=== PATIENT | male | born 1940 | race Caucasian/White ===

== ENCOUNTER → 2019-12-10 11:32 | Outpatient (CLI) | payer MEDICARE, SELFPAY ==
--- NOTE | ~2019-12-10 | XR_ITS ---
XR lumbar spine 2-3V DATE: 12/10/2019 11:52 INDICATION: Low back pain TECHNIQUE: AP, lateral, coned lateral lumbosacral views COMPARISON: 10/24/2011 MRI lumbar spine FINDINGS: Lumbar laminectomy. Status post posterior and interbody spinal fusion at L2-3. There is ivette roximately 5 mm retrolisthesis at this level. Degenerative spurring of the lower thoracic spine. Moderate degenerative disc disease at L1-2 and L3-4 with approximately 4 mm retrolisthesis at L3-4. Osteopenia. No fracture or bone destruction is evident. The included lower thoracic and lumbar pedicles appear in tact. The sacroiliac joints are intact. There is extensive calcification of the abdominal aorta and iliac arteries. Surgical clips overlie the pelvis bilaterally. IMPRESSION: Posterior and interbody spinal fusion at L2-3 Moderate degenerative disc disease at L1-2 and L3-4 Retrolisthesis at L2-3 and L3-4 Reviewed, dictated and finalized at location A.
== END ==
PROVIDERS: PCP Family Medicine
DX: M51.36 Other intervertebral disc degeneration, lumbar region (principal); Z98.1 Arthrodesis status
CPT/HCPCS: 72100

== ENCOUNTER 2020-02-08 09:17 | Outpatient (CLI) | payer MEDICARE, SELFPAY ==
--- NOTE | ~2020-02-08 | XR_ITS ---
EXAMINATION: XR lumbar spine 2-3V EXAM DATE: 02/08/2020 09:37 INDICATION: Decompressive laminectomies and fusion. TECHNIQUE: Lumber spine frontal, lateral, lateral L5-S1 projections for interpretation. Comparison is made to prior examination from 12/10/2019. FINDINGS: Again there is posterior and interbody fusion at L2-3 and grade 1 retrolisthesis position. There is about 5 mm retrolisthesis L3 on L4. There are moderate-sized bridging lumbar endplate osteo phytes at these 2 levels. Mild to moderate lumbar disc disease at L1-2 and L3-4, mild at the lower levon mbar levels. There is moderate lumbar facet arthropathy. There is mild to moderate abdominal aortic a rteriosclerotic disease. Mild diffuse loss of vertebral body heights. Sacrum, sacroiliac joints, sac ral arcuate lines are intact. Pelvic surgical clips, probably pelvic lymph node dissection, prostatec richa; correlate with surgical history. There is no significant interval change. IMPRESSION: 1. Mild to moderate lumbar disc disease. 2. Moderate facet arthropathy. 3. Intact L2-3 fusion. Reviewed, dictated and finalized at location A.
== END 2020-02-08 09:18 | disposition home or self-care (01) ==
PROVIDERS: PCP Family Medicine; Visit Provider Neurological Surgery
DX: M54.5 Low back pain (principal); Z98.1 Arthrodesis status; M51.86 Other intervertebral disc disorders, lumbar region; M12.88 Other specific arthropathies, not elsewhere classified, other specified site
CPT/HCPCS: 72100

== ENCOUNTER 2021-02-05 14:30 | Outpatient (RCR) | payer MEDICARE, SELFPAY ==
--- NOTE | 2021-01-11 11:00 | PTOPEVAL ---
PHYSICAL THERAPY EVALUATION AND PLAN OF CARE 01-11-21 Thank you for referring Wilmer Bowling to [facility], for the diagnosis of low back pain, spinal stenosis. Art is scheduled to be seen for therapy? 2 x/week for 4 weeks. Please review, sign, date and return this plan of care ELAYNE. I agree with and certify that the following plan of care is medically necessary. Referring Physician Date Attending Provider: Beck Benites MD PT Outpatient Evaluation Document 01/11/21 08:05 ELIZABETH (Rec: 01/11/21 09:05 ELIZABETH [id number]) Outpatient Past Medical History Past Medical History Source of Past Medical History Patient Neurological History Hx Other Neurological Disorders Yes: B LE/ feet diabetic neuropathy- wear shoe insertion Cardiovascular History Hx Hypertension Yes: meds Respiratory History Hx Sleep Apnea Yes: CPAP Genitourinary History Hx Other Genitourinary Disorders Yes: prostate surgery x2, for cancer with radiation Musculoskeletal History Hx Back Pain Yes Hx Orthopedic Surgery Yes: 2015 & 2019: lumbar fusion L 2-3; R rot cuff surgery Endocrine History Hx Diabetes Yes: meds HEENT History Hx HEENT Disorders B hearing aides Psychosocial History Hx Anxiety Yes Other History Hx Cancer Yes: prostate surgery x2 Hx Radiation Therapy Yes: for prostate Hx Other Medical Conditions Yes: restless leg syndrome Evaluation Information Problem Diagnosis spinal stenosis, lumbar pain Onset Aug 2020 Subjective Information back surgery in November 2015 and Query Text:As Reported By Patient/ September 2019- L 2-3 Family decompressive laminectomy and fusion with revision of hardware L 4-5 ; surgeon Dr Bowie did an x ray in December and stated all is healed well and wanted him to have PT treatment Diagnostic Tests X-Rays For This Problem Yes: per pt- said arthritis and previous surgery is OK Previous Treatments Previous Treatments For This Problem had PT prior to back surgery, stim helped- liked it Prior Level of Function Activity Level (Last 3 Months) Occupation retired Hand Dominance Right Activity of Daily Living Ability Independent Indoor/Home Mobility Independent Community Mobility Independent Stairs Ability Independent Functional Cognition (Planning, Shopping Independent ,
--- NOTE | 2021-02-05 15:14 | PTOPEVAL ---
PHYSICAL THERAPY DISCHARGE 02-05-21 Refer to the clinical summary below, for his status with today's reeval to the initial evaluation. The goals were partially achieved. Thank you for referring Wilmer Bowling to [facility].? Please review, sign, date and return this Discharge ELAYNE. I agree with and certify that the following plan of care is medically necessary. Referring Physician Date Attending Provider: Beck Benites MD Document 02/05/21 14:30 ELIZABETH (Rec: 02/05/21 15:14 ELIZABETH [id number]) Assessment Status Discharge Subjective Information Art reports: therapy has Query Text:As Reported By Patient/ helped tremendously--doing the Family exercises and have things to help my back; Pain Assessment Timing of Pain Assessment Timing of Pain Assessment Assessment Pain Scale Pain Scale Used Numeric (1 - 10) Self Report Pain Assessment Bilateral Back Reported Pain Level 2 Pain Description Aching,Burning Radicular Pain Location L LE to lateral - mid calf- with increase activity- stinging,ease with rest Pain Frequency Chronic,Continuous Other Pain Description R and L lumbar areas, into R hip and buttock Lowest Pain Intensity 2 Greatest Pain Intensity 5 Pain Aggravating Factors Exercise/Activity,Lifting, Stair Climbing,Walking Other Pain Aggravating Factors report walking tolerance of 1/ 2 block; Pain Behaviors Grimacing,Guarding Additional Pain Comments doing OK with sitting and sleeping; Pain Score Pain Score 2: Self Report Additional Pain Score Comments Oswestry self assessment functional score of 36% limitation in activity Interventions Used Interventions Used By Clinicians Education,Exercise Cervical and Lumbar ROM Lumbar ROM Lumbar Comments standing trunk extension increase burn pain in anterior thighs and lumbar areas; supine hamstring length with SLR R 60'/ L 65'- no increase in back pain; prone on elbows: no pain but tight in low back Lower Extremity Muscle Strength Testing General Lower Extremity Strength Gross Lower Extremity Strength functional strength testing: - supine: SLR R and L x 20 reps - side lying hip abduction:R
== END 2021-02-06 08:27 | disposition home or self-care (01) ==
LOC: ANHPT 14:30
PROVIDERS: PCP Family Medicine; Visit Provider Family Medicine
DX: M48.062 Spinal stenosis, lumbar region with neurogenic claudication (principal)
CPT/HCPCS: 97014; 97110; 97140; 97161; G0283

== ENCOUNTER → 2022-12-15 09:50 | Outpatient (CLI) | payer MEDICARE, SELFPAY ==
--- NOTE | ~2022-12-15 | XR_ITS ---
XR knee LT 3V 12/15/2022 10:11 Indication: Left knee pain Procedure: 4 views left knee Comparison: No prior studies for comparison. Findings: Mild tricompartment osteoarthritis of the left knee. No fracture, subluxation or dislocatio n. No significant joint effusion. Impression: 1: Mild tricompartment osteoarthritis of the left knee. Reviewed, dictated and finalized at location B. Impression: 1: Mild tricompartment osteoarthritis of the left knee.
== END ==
PROVIDERS: PCP Family Medicine; Visit Provider Family Medicine
DX: M17.12 Unilateral primary osteoarthritis, left knee (principal)
CPT/HCPCS: 73562

== ENCOUNTER → 2023-02-23 14:45 | Outpatient (CLI) | payer MEDICARE, SELFPAY ==
--- NOTE | ~2023-02-23 | MR_ITS ---
MRI of the lumbar spine Clinical History: Spinal stenosis Technique: Axial T2-weighted images, and sagittal T1-weighted, T2-weighted, and and T2 fat-sat images were acquired. Following intravenous administration of 18 cc MultiHance gadolinium, T1-weighted fat- sat imaging was performed in the axial and sagittal planes. COMPARISON: 10/24/2011 Findings: No acute fracture identified. There is posterior fusion from L2 through L3, with bilateral rods and transpedicular screws in place, as well as laminectomies at L2 and L3. There is interbody fu rhiannon device at the L2-L3 disc space. There is underlying grade 1 retrolisthesis of L2 over L3, and of L3 over L4. No suspicious bone marrow signal abnormality identified. At L1-L2, there is no disc bulge or herniation. There is advanced facet arthropathy. There is minimal thecal sac compression. Neural foramina are preserved. At L2-L3, there is no disc bulge or herniation. There is facet arthropathy. No spinal canal stenosis. No definite neural foraminal narrowing. L3-L4, there is disc bulge and facet arthropathy. No yvan central canal stenosis. There is moderate to severe right neural foraminal narrowing, and moderate left neural foraminal narrowing. At L4-L5, there is diffuse disc bulge with advanced facet arthropathy. L4 laminectomy present. No fra nk central canal stenosis. There is severe bilateral neural foraminal narrowing. At L5-S1, there is severe facet arthropathy without disc bulge or herniation. No central canal stenos is. Possible minimal bilateral neural foraminal narrowing. Paravertebral soft tissues are unremarkable, aside from expected postoperative changes. No abnormal p ostcontrast enhancement identified. Impression: Posterior fusion from L2 through L3, with underlying grade 1 retrolisthesis of L2 over L3, and of L3 over L4. Please see details above. Severe bilateral neural foraminal narrowing at L4-L5. Bilateral neural foraminal narrowing at L3-L4, right worse than left. Minimal thecal sac compression at L1-L2, on a degenerative basis. Reviewed, dictated and finalized at [facility]. Impression: Posterior fusion from L2 through L3, with underlying grade 1 retrolisthesis of L2 over L3, and of L3 over L4. Please see details above. Severe bilateral neural foraminal narrowing at L4-L5. Bilateral neural foraminal narrowing at L3-L4, right worse than left. Minimal thecal sac compression at L1-L2, on a degenerative basis.
== END ==
PROVIDERS: PCP Neurological Surgery; Visit Provider Neurological Surgery
DX: M48.062 Spinal stenosis, lumbar region with neurogenic claudication (principal); Z98.1 Arthrodesis status
CPT/HCPCS: 72158; A9577

== ENCOUNTER 2024-08-21 08:11 | Outpatient (CLI) | payer MEDICARE, SELFPAY ==
--- NOTE | ~2024-08-21 | MR_ITS ---
MRI of the brain Clinical History: Amnesia, Parkinson's disease Technique: Axial and sagittal T1-weighted images were acquired. These were followed by axial T2-weigh rosita, diffusion weighted, gradient, and FLAIR images. Following intravenous administration of 15 cc Mu ltiHance gadolinium, T1-weighted fat-sat imaging was performed in the axial and coronal planes. Findings: There is no acute infarct, intracranial hemorrhage, or mass lesion. Moderate chronic white matter changes are present in the periventricular white matter bilaterally and jeannette. Ventricles and subarachnoid spaces are dilated. Orbits are unremarkable. Paranasal sinuses and mastoi d air cells are clear. Major intracranial flow voids appear intact. Sagittal midline structures are intact. No abnormal postcontrast enhancement identified. IMPRESSION: No acute abnormality. Moderate chronic microvascular ischemic change and mild generalized atrophy. Reviewed, dictated and finalized at [facility]. [employer] SYSTEMS INTEGRATOR IMPRESSION: No acute abnormality. Moderate chronic microvascular ischemic change and mild g eneralized atrophy.
--- OUTSIDE RECORDS SUMMARY | 2024-08-25 17:00 | XMS_ITS | Encounter Summary ---
Author Organization Formerly [facility] Address [address] [place] [address] Care Team Providers Care Scalp Specialist Name Role Phone Beck Benites MD Primary Care Provider [phone] Reason for Referral * MRI/CAT/PET Scan (Routine) - Closed Specialty Diagnoses / Procedures Referred By Nina love Referred To Contact Radiology Diagnoses Malignant neoplasm of prostate (HCC) Procedures PET/CT Prostate Cancer PSMA Skull to Thigh Wilfrido Todd MD [address] [place] [address] Phone: tel: fax: [address] [phone] Referral ID Status Reason Start Date Expiration Date Visits Re quested Visits Authorized [id number] Closed 11/01/2021 12/01/2022 2 2 CONDENSER Reason for Visit * MRI/CAT/PET Scan (Routine) - Closed Specialty Diagnoses / Procedures Referred By Contac t Referred To Contact Radiology Diagnoses Malignant neoplasm of prostate (HCC) Procedures PET/CT Prostate Cancer PSMA Skull to Thigh Wilfrido Todd MD [address] [place] [id number] Phone: tel: fax: [address] [phone] Referral ID Status Reason Start Date Expiration Date Visits Re quested Visits Authorized [id number] Closed 11/01/2021 12/01/2022 2 2 Encounter Details Date Type Department Care Team (Late st Contact Info) Description 11/13/2021 2:45 PM ACID CONDENSER - 11/13/2021 11:59 PM ACID CONDENSER Hospital Encounter [facility] [address] [place] [id number] Wilfrido Todd MD [address] [place] [id number] Malignant neoplasm of prostate (CMS/HCC) (HCC) Discharge Disposition: Discharge to home or self care Social History Tobacco Use Types Packs/Day Years Used Date Smoking Tobacco: Former Cigarettes 0.1 8 1 - 09/05/1995 Smokeless Tobacco: Never Alcohol Use Standard Drinks/Week Comments Yes 2 (1 standard drink = 0.6 oz pur e alcohol) occassionally Sex and Gender Information Value Date Recorded Sex Assigned at Not on file Legal Sex Male 4:01 AM ACID CONDENSER Gender Identity Not on file Sexual Orientation Not on file documented as of this encounter Medications at Time of Discharge ascorbic acid, vitamin C, (VITAMIN C) 500 mg CR tabletIndications :Vitamin C Deficiency Take 500 mg by mouth daily cholecalciferol (VITAMIN D-3) 2000 unit capsuleIndication s:Vitamin D Deficiency Take 2,000 Units by mouth daily coenzyme Q10 100 mg capsuleIndication s:vitamin health Take 100 mg by mouth 2 (two) times a day cyanocobalamin (Vitamin B-12) 1,000 mcg tabletIndications :Prevention of Vitamin B12 Deficiency Take 1,000 mcg by mouth daily DULoxetine DR (CYMBALTA) 60 mg capsuleIndication s:Anxiety with Depression Take 60 mg by mouth daily empagliflozin (JARDIANCE) 25 mg tabletIndications :type 2 diabetes mellitus Take 25 mg by mouth daily famotidine (PEPCID) oral suspension 40 mg/5 mLIndications:gas troesophageal reflux disease Take 20 mg by mouth as needed for heartburn glipiZIDE (GLUCOTROL) 10 mg tabletIndications :type 2 diabetes mellitus Take 10 mg by mouth 2 (two) times a day before breakfast and lunch lisinopril (PRINIVIL,ZESTRIL ) 40 mg tabletIndications :hypertension Take 40 mg by mouth daily metFORMIN (GLUCOPHAGE) 500 mg tabletIndications :type 2 diabetes mellitus Take 2,000 mg by mouth daily with dinner omeprazole (PriLOSEC) 20 mg capsuleIndication s:Stress Ulcer Prophylaxis Take 20 mg by mouth daily simvastatin (ZOCOR) 40 mg tabletIndications :hyperlipidemia Take 40 mg by mouth nightly vitamin E (vitamin E) 400 unit capsule Take 400 Units by mouth daily aspirin 81 mg enteric coated tablet Take 1 tablet (81 mg total) by mouth daily with dinner 09/26/2019 docusate sodium (Colace) 100 mg capsuleIndication s:constipation Take 100 mg by mouth 2 (two) times a day as needed for constipation. Indications: constipation dulaglutide (TRULICITY) 1.5 mg/0.5 mL pen injector Inject 1.5 mg under the skin once a week Takes on Thursday vitamin E (vitamin E) 1,000 unit capsuleIndication s:Vitamin E Deficiency Take 1,000 Units by mouth daily. Indications: deficiency of vitamin E documented as of this encounter Discharge Disposition Disposition Code Departure Means Destination Discharge to home or self care documented in this encounter Plan of Treatment Not on file documented as of this encounter Procedures Procedure Name Priority Date/Time Associated Diagnosis Comments PET/CT PROSTATE CANCER PSMA SKULL TO THIGH Schedule Routine, Read Routine (OP Routine) 11/13/2021 5:58 PM ACID CONDENSER Malignant neoplasm of prostate (CMS/HCC) (HCC) documented in this encounter Results * PET/CT Prostate Cancer PSMA Skull to Thigh (11/13/2021 5:58 PM ACID CONDENSER) Anatomical Region Laterality Modality N/A Positron Emissio n Tomography (PET) 11/14/2021 9:43 AM ACID CONDENSER Impressions 11/14/2021 1:21 PM ACID CONDENSER 1. Small right common iliac and retroperitoneal lymph nodes with fspp-xe-ysminxni PSMA uptake are suspicious for prostate cancer anthony metastases. 2. No PSMA PET evidence of local prostatectomy bed recurrence or visceral/osseous metastasis. 3. ??Mild focal uptake at the right lateral 4th rib without definite correlate CT lesion is probably benign. Dictated by: José Antonio Schafer M.D. The radiology attending physician has personally reviewed this study, and had reviewed and/or edited this written report and agrees with it. Electronically signed by: La Weinberg M.D. Narrative 11/14/2021 1:21 PM ACID CONDENSER EXAMINATION: ??PSMA-PET/CT DATE OF STUDY: 11/13/2021 SCANNER: mCT RADIOPHARMACEUTICAL: ??10.6 mCi F-18 Piflufolastat (PYL) i.v. Injection site: Right antecubital HISTORY: ??Man (81 years old) with prostate cancer diagnosed on September 2004 with [place] score of 3+4. ??The patient was treated with radical prostatectomy in November 2004. ??The most recently obtained PSA is 0.5 ng/mL (unspecified date). ??The study is requested for restaging of documented biochemically recurrent prostate cancer. Subsequent treatment strategy. TECHNIQUE: ??After intravenous administration of F-18 PYL, noncontrast CT images were obtained for attenuation correction and for fusion with emission PET images to allow for anatomical localization of PET findings. ??Emission PET images were then obtained. ??The study was interpreted on the [email or web address] workstation. ?? Scanned area: mid thighs to skull vertex; the time from injection to start of imaging the time from injection to start of imaging for this scan position was 95 minutes. REFERENCE TISSUE MAXIMUM SUVs: ??Parotid gland 12.8; Liver 8.9; Blood pool 2.0 Focal PYL uptake is graded as follows: * ??Faint: above background to blood pool * ??Mild: above blood pool to liver * ??Moderate: above liver to salivary glands * ??Intense: similar to or above salivary glands COMPARISON: [facility] PET/CT dated 01/14/2019 FINDINGS: Prostate/Prostate bed: Prostatectomy. ??No abnormal tracer uptake seen. Regional lymph nodes: Surgical clips from bilateral pelvic node dissection. ??Small right common iliac and right aortic bifurcation lymph nodes with guup-hw-yqfefvzs uptake are seen. ??For reference: -Small right common iliac lymph node measuring 0.7 x 0.3 cm that has mild to moderate uptake (image 294/441). -Tiny right aortic bifurcation node measuring 0.2 cm with mild uptake (image 283/441). Extra-pelvic lymph nodes: Multiple small retroperitoneal nodes have mild to moderate uptake. ??For reference: -Precaval 0.4 cm node with zylc-ts-cthpjwdq uptake (image 272/441). -Aortocaval 0.4 cm node with moderate uptake (image 256/441). -The most superior suspicious node is a small retrocaval node with mild uptake on image (249/441) below the renal veins and at the level of L1-L2. Bone: No suspicious tracer uptake seen. Very mild focal uptake at the right lateral 4th rib without definite correlate CT lesion is probably benign. ??A sclerotic left posterior iliac lesion without focal uptake is unchanged. Visceral: No abnormal tracer uptake seen. A stable small left upper quadrant soft tissue nodule with mild uptake is favored to represent a splenule (image 190/441). Additional CT findings: Mild maxillary sinus mucosal thickening with minimal activity. ??Atherosclerotic calcifications including aortic and coronary involvement. ??Mild linear bibasilar atelectasis. Posterior lumbar spinal fusion. Procedure Note La Weinberg MD - 11/14/2021 EXAMINATION: PSMA-PET/CT DATE OF STUDY: 11/13/2021 SCANNER: mCT RADIOPHARMACEUTICAL: 10.6 mCi F-18 Piflufolastat (PYL) i.v. Injection site: Right antecubital HISTORY: Man (81 years old) with prostate cancer diagnosed on September 2004 with [place] score of 3+4. The patient was treated with radical prostatectomy in November 2004. The most recently obtained PSA is 0.5 ng/mL (unspecified date). The study is requested for restaging of documented biochemically recurrent prostate cancer. Subsequent treatment strategy. TECHNIQUE: After intravenous administration of F-18 PYL, noncontrast CT images were obtained for attenuation correction and for fusion with emission PET images to allow for anatomical localization of PET findings. Emission PET images were then obtained. The study was interpreted on the [email or web address] workstation. Scanned area: mid thighs to skull vertex; the time from injection to start of imaging the time from injection to start of imaging for this scan position was 95 minutes. REFERENCE TISSUE MAXIMUM SUVs: Parotid gland 12.8; Liver 8.9; Blood pool 2.0 Focal PYL uptake is graded as follows: * Faint: above background to blood pool * Mild: above blood pool to liver * Moderate: above liver to salivary glands * Intense: similar to or above salivary glands COMPARISON: [facility] PET/CT dated 01/14/2019 FINDINGS: Prostate/Prostate bed: Prostatectomy. No abnormal tracer uptake seen. Regional lymph nodes: Surgical clips from bilateral pelvic node dissection. Small right common iliac and right aortic bifurcation lymph nodes with vsud-qi-cwmbjzfa uptake are seen. For reference: -Small right common iliac lymph node measuring 0.7 x 0.3 cm that has mild to moderate uptake (image 294/441). -Tiny right aortic bifurcation node measuring 0.2 cm with mild uptake (image 283/441). Extra-pelvic lymph nodes: Multiple small retroperitoneal nodes have mild to moderate uptake. For reference: -Precaval 0.4 cm node with zucu-lh-rsrgcban uptake (image 272/441). -Aortocaval 0.4 cm node with moderate uptake (image 256/441). -The most superior suspicious node is a small retrocaval node with mild uptake on image (249/441) below the renal veins and at the level of L1-L2. Bone: No suspicious tracer uptake seen. Very mild focal uptake at the right lateral 4th rib without definite correlate CT lesion is probably benign. A sclerotic left posterior iliac lesion without focal uptake is unchanged. Visceral: No abnormal tracer uptake seen. A stable small left upper quadrant soft tissue nodule with mild uptake is favored to represent a splenule (image 190/441). Additional CT findings: Mild maxillary sinus mucosal thickening with minimal activity. Atherosclerotic calcifications including aortic and coronary involvement. Mild linear bibasilar atelectasis. Posterior lumbar spinal fusion. IMPRESSION: 1. Small right common iliac and retroperitoneal lymph nodes with kpxo-pp-ehxdbucg PSMA uptake are suspicious for prostate cancer anthony metastases. 2. No PSMA PET evidence of local prostatectomy bed recurrence or visceral/osseous metastasis. 3. Mild focal uptake at the right lateral 4th rib without definite correlate CT lesion is probably benign. Dictated by: José Antonio Schafer M.D. The radiology attending physician has personally reviewed this study, and had reviewed and/or edited this written report and agrees with it. Electronically signed by: La Weinberg M.D. Wilfrido Todd MD IMG PET PROCEDURES Erica l Result documented in this encounter Visit Diagnoses Diagnosis Malignant neoplasm of prostate (HCC) Malignant neoplasm of prostate documented in this encounter Administered Medications Inactive Administered Medications - up to 3 most recent administrations Medication Order MAR Action Action Date Dose Rate Site F-18 PyL-PYLARIFY (PIFLUFOLASTAT) (PyLARIFY) injection 9 millicurie 9 millicurie, intravenous, Once in imaging, radiopharmaceutical, Starting on Thu11/13/21 at 1602, For 1 dose Given 11/13/2021 3:59 PM ACID CONDENSER 10.59 millicuries documented in this encounter Orders Medications Ordered That Ervin ht Not Have Been Administered Count Last Ordered Date First Ordered Date F-18 PyL-PYLARIFY (PIFLUFOLA STAT) (PyLARIFY) injection 9 millicurie 1 11/13/2021 documented in this encounter Care Teams Scalp Specialist Relationship Specialty Start Date End Date Beck Benites MD [address] [address] PCP - General 11/06/16 documented as of this encounter
--- OUTSIDE RECORDS SUMMARY | 2024-08-25 17:00 | XMS_ITS | Encounter Summary ---
Author Organization [facility] Healthcare Address [address] [place] [address] Care Team Providers Care Polysomnographic Technician Name Role Phone Beck Benites MD Primary Care Provider [phone] Reason for Visit * Diagnostic Imaging (Routine) - Closed Specialty Diagnoses / Procedures Referred By Contac t Referred To Contact Diagnoses Pain Procedures XR Spine Lumbar 2 or 3 Views XR Spine Lumbar 4 or More Views Don Estrella MD [address] [address] Phone: tel: fax: [address] [address] Referral ID Status Reason Start Date Expiration Date Visits Re quested Visits Authorized [id number] Closed 02/19/2023 03/20/2024 1 1 Encounter Details Date Type Department Care Team (Latest Contact Info) Description 02/19/2023 8:49 AM CDT - 02/19/2023 11:59 PM CDT Hospital Encounter [facility] [address] [place] [address] Pain Discharge Disposition: Discharge to home or self [...] on file 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 ??Mild to moderate multilevel degenerative disc disease. Electronically signed by: Benja Martin M.D. Narrative 02/19/2023 9:15 AM CDT EXAMINATION: ??XR SPINE LUMBAR 2 OR 3 VIEWS DATE: 02/19/2023 9:00 AM. HISTORY: pain. COMPARISON: Lumbar spine radiograph from 12/26/2020. FINDINGS: The patient is status post L2-L3 instrument posterior spinal fusion. The instrumentation is intact and in unchanged position. ??Mild retrolisthesis at L2-L3, L3-L4, and L4-L5 is unchanged. ??There is no acute compression fracture. ??There is mild to moderate multilevel degenerative disc disease, similar to the prior study. ??The sacroiliac joints are intact. ??The aorta is atherosclerotic. ??There are surgical clips in the pelvis. Procedure Note Benja Martin MD - 02/19/2023 EXAMINATION: XR SPINE LUMBAR 2 OR 3 VIEWS DATE: 02/19/2023 9:00 AM. HISTORY: pain. COMPARISON: Lumbar spine radiograph from 12/26/2020. FINDINGS: The patient is status post L2-L3 instrument posterior spinal fusion. The instrumentation is intact and in unchanged position. Mild retrolisthesis at L2-L3, L3-L4, and L4-L5 is unchanged. There is no acute compression fracture. There is mild to moderate multilevel degenerative disc disease, similar to the prior study. The sacroiliac joints are intact. The aorta is atherosclerotic. There are surgical clips in the pelvis. IMPRESSION: Status post L2-L3 instrumented posterior spinal fusion, with unchanged vertebral alignment. Mild to moderate multilevel degenerative disc disease. Electronically signed by: Benja Martin M.D. us Don Estrella MD IMG XR PROCEDURES Final R esult documented in this encounter Visit Diagnoses Diagnosis Pain Generalized pain documented in this encounter Care Teams Polysomnographic Technician Relationship Specialty Start Date End Date Beck Benites MD [address] [address] PCP - General 11/06/16 documented as of this encounter
--- OUTSIDE RECORDS SUMMARY | 2024-08-25 17:00 | XMS_ITS | Data Portability ---
Author Organization [facility], Main Office Address [address] [place] [address] Care Team Providers Care Timber Sprinkler Name Role Phone TENZIN CHAND Primary Care Provider TENZIN CHAND Referring Provider Assessment Encounter Date Assessment Date Assessment LastModified by Organization Details LastModified Time 11/14/2022 11/14/2022 Patient returns. He had a cortisone injection left knee1 Week ago which along symptoms. He came in today for injection right knee. He has we were these week. 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 Physical exam: 82-year-old male very alert pleasant. He walks with a cane. He has trace effusion in the knee. Range of motion is from 0-135 degrees. He has moderate pain with patellofemoral grind. No medial or lateral joint line tenderness. No increased swelling in either lower extremity. ChloraPrep used on skin 20 mg Kenalog and 3 cc of% ropivacaine was injected into the right knee. Risk of infection discussed. 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 He does continue get excellent relief from injections. He will knee feels he needs additional injections. Not available 11/14/2022 09:22:33 04/24/2023 04/24/2023 HPI: 82-year-old male came in today for evaluation of his leg pain. Initially he thought that is right knee was the source of his pain. He states that he fell in January of this year when he tripped over the lip of the threshold at home. He landed hard on his side onto concrete. He has been having symptoms in his right leg since then. He has also been having some symptoms in his left leg as well. He contributed his pain to his knees. We saw him approximately a year ago for his knees and x-rays at that time showed minimal arthritic changes in the knees. After talking with the patient for a while he states that he would get symptoms in his knees in legs when he was up walking. He would walk a certain distance and then he would start to have a lot of pain in the thighs and in the knees to the point where he had to sit down. After he has had down for 5 minutes he was able to get up and walk again. Again he was contributing the symptoms to his knees. He has had back problems in the past. He had epidural injections done approximately 2-3 weeks ago. He does not feel there was any improvement in his symptoms. Physical exam: 82-year-old male alert pleasant. He has no effusion in the right knee. Range of motion is from 0-135 degrees. There is no pain with range of motion. Hip range of motion is full without discomfort. He has no tenderness to the medial or lateral joint line in the knee. No pain with patellofemoral grind. With normal stability in the knee. No swelling lower extremities. 2+ dorsalis pedis pulse. Impression: I think patient's symptoms are all coming from spinal stenosis and his back. His symptoms and the onset and the resolution of his symptoms certainly correlate to spinal stenosis. He has no physical exam findings in his knee and his previous x-rays show no arthritic changes either. I discussed this with him. I recommended that he go back to pain management and let them know that the previous injection did not help and see whether not there is more options to try to get his symptoms under control. He did state that they did do a new MRI scan so they do have imaging to try to correlate his symptoms to. 20 minutes was spent in discussing all of this with the patient. At this point we will see him back as needed. Not available 04/24/2023 16:02:39 Plan of Treatment Reminders Order Date Submit Date Provider Last Modified By Organization Details Last Modified Time Details Appointments None recorded. Lab None recorded. Referral None recorded. Procedures injection/a spiration joint/bursa (PROC) - in office procedure, administere d by provider 2022 023 [email or web address] Not available 08:56:12 Surgeries None recorded. Imaging None recorded. Medication Orders Kenalog 10 mg/mL suspension for injection 2022 023 [id number] [facility]armacy #[id number], [address], [place], [address], 3 17:18:58 ropivacaine (PF) 5 mg/mL (0.5 %) injection solution 2022 023 [id number] 347 [facility]/Pharmacy #[id number], [address], [place], [address], 3 17:18:58 Patient TargetsNo targets recorded. Patient InstructionsNo instructions recorded. Reason for Referral None Reported. Results Created Date Observation Date Name Description Value Unit Range Abnormal Flag Note LastModifiedBy Organization Detail LastModifiedTime 03/31/20 22 XR, knee No observ ation record ed. [id number] [id number] [place] [address], [place], [address], 11/05/2022 01:08:40 Result Notes None recorded. Problems Name Problem SNOMED Code Status Onset Date Resolution Date Notes Provider Name and Address Organization Details Recorded Time Acquired trigger finger 5230061 Active Not Available [facility] 3 17:18:58 Body mass index 30+ - obesity 914267938 Active 2018 Not Available [facility] 3 17:18:58 Osteoarthr itis 463230191 Active Not Available [facility] 3 17:18:58 Periodic limb movement disorder 368730639 Active 2019 Not Available [facility] 3 17:18:58 Pain of left knee joint 1454538068079 07 Active 2021 Not Available [facility] 3 17:18:58 Obstructiv e sleep apnea syndrome 29626747 Active 2018 Not Available [facility] 3 17:18:58 Osteoarthr itis of right knee joint 9662021067616 00 Active 2022 Not Available [facility] 3 17:18:58 Problem Notes None recorded. Procedures Surgical History Date Name Laterality Status Provider Name and Address Organization Details Recorded Time 6 Back Surgery completed Not Available [facility] 023 00:53:09 Prostatectomy completed Not Available [facility] 11/05/2022 00:53:09 Imaging Results Imaging Date Name Status LastModified by Organiz ation Details LastModified Time 03/31/2022 XR, knee completed [id number] [place] [address], [place], [address], 11/05/2022 01:08:40 Procedure Notes None recorded. Medical Equipment None Reported. Allergies Allergen ID Allergen Name Allergen Category Reaction Reaction Severity Criticality Documentation Date Start Date Code Code System Note Provider Name and Address Organization Details Recorded Time 1584 Medicinal product containin g penicilli n and acting as antibacte rial agent (product) medicatio n Not available Not available Not available 11/05/2022 44869 05 SNOMED hands and feet swell ed since 1965 Not Available [facility] 3 01:08:07 Medications Name Sig Start Date Stop Date Status Note LastModified by Organization Details LastModified Time clindamyc in HCl 300 mg capsule TAKE 1 CAPSULE BY MOUTH EVERY 8 HOURS 03/31 completed Not Available Not Available Not Available hydrocort isone-pra moxine 2.5 %-1 % rectal cream 05/18 completed Not Available Not Available Not Available azithromy emily 250 mg tablet TAKE 2 TABLETS BY MOUTH TODAY, THEN TAKE 1 TABLET DAILY FOR 4 DAYS 10/31 completed Not Available Not Available Not Available tizanidin e 4 mg tablet 05/11 completed Not Available Not Available Not Available clarithro mycin 500 mg tablet 05/11 completed Not Available Not Available Not Available hydrocodo ne 5 mg-acetam inophen 325 mg tablet TAKE 1 TABLET BY MOUTH EVERY 4-6 HOURS NEEDED 11/08 completed Not Available Not Available Not Available prazosin 1 mg capsule active Not Available Not Available Not Available fluocinon shayy 0.05 % topical gel 05/11 completed Not Available Not Available Not Available glipizide ER 10 mg tablet, extended release 24 hr 05/11 completed Not Available Not Available Not Available meloxicam 15 mg tablet 05/11 completed Not Available Not Available Not Available glipizide 10 mg tablet Take 1 tablet every day by oral route. 2021 active Not Available Not Available Not Avai lable bupivacai ne HCl 0.5 % (5 mg/mL) injection solution In office injectio n administ ered by the provider 10/31 completed Not Available Not Available Not Available prednison e 20 mg tablet 05/11 completed Not Available Not Available Not Available clonazepa m 0.5 mg tablet TAKE 1 TABLET BY MOUTH AT BEDTIME active Not Available Not Available No t Available metronida zole 500 mg tablet 05/11 completed Not Available Not Available Not Available tramadol 50 mg tablet 11/08 completed Not Available Not Available Not Available pentoxify lline ER 400 mg tablet,ex tended release 05/18 completed Not Available Not Available Not Available simvastat in 40 mg tablet 2018 active Not Available Not Available Not Avai lable oxycodone -acetamin ophen 5 mg-325 mg tablet 11/21 completed Not Available Not Available Not Available Kenalog 10 mg/mL suspensio n for injection in office 2022 active [facility] [place]: [phone] 4-20 Not Available Not Available Not Available ferrous sulfate 325 mg (65 mg iron) tablet Take 1 tablet every day by oral route. 2022 active Not Available Not Available Not Avai lable gabapenti n 300 mg capsule 05/11 completed Not Available Not Available Not Available omeprazol e 20 mg capsule,d elayed release 2020 active Not Available Not Available Not Avai lable gabapenti n 100 mg capsule Take 1 capsule 3 times a day by oral route. 2021 active Not Available Not Available Not Avai lable levofloxa emily 500 mg tablet 11/08 completed Not Available Not Available Not Available methylpre dnisolone 4 mg tablets in a dose pack 05/11 completed Not Available Not Available Not Available lisinopri l 40 mg tablet 03/31 completed Not Available Not Available Not Available metformin ER 500 mg tablet,ex tended release 24 hr 03/31 completed Not Available Not Available Not Available prazosin 2 mg capsule active Not Available Not Available Not Available naproxen 500 mg tablet 05/11 completed Not Available Not Available Not Available ramipril 10 mg capsule 05/11 completed Not Available Not Available Not Available Vitamin D3 25 mcg (1,000 unit) capsule Take 1 capsule by oral route. 2018 active Not Available Not Available Not Avai lable duloxetin e 30 mg capsule,d elayed release 05/11 completed Not Available Not Available Not Available duloxetin e 60 mg capsule,d elayed release Take 1 capsule every day by oral route. 2021 active Not Available Not Available Not Avai lable melatonin 2021 active Not Available Not Available Not Avai lable acetamino phen 2022 active Not Available Not Available Not Avai lable Vitamin C 10/31 completed Not Available Not Available Not Available vitamin E 10/31 completed Not Available Not Available Not Available lisinopri l 2021 active Not Available Not Available Not Avai lable metformin 2022 active Not Available Not Available Not Avai lable Brunilda Aspirin 81 mg 2018 active once daily dinner time Not Available Not Available Not Available carboxyme thylcellu lose 2022 active Not Available Not Available Not Avai lable vitamin R20-xydeq acid 10/31 completed Not Available Not Available Not Available PreserVis ion AREDS 2022 active Not Available Not Available Not Avai lable lidocaine (PF) 10 mg/mL (1 %) injection solution In office injectio n administ ered by the provider 10/31 completed [facility] [place]: [phone] Not Available Not Available Not Available lidocaine (PF) 5 mg/mL (0.5 %) injection solution In office injectio n administ ered by the provider 10/31 completed Not Available Not Available Not Available CoQ10 SG 100 100 mg-100 unit capsule Take 1 capsule twice a day by oral route as directed . 12/20 completed Not Available Not Available Not Available Suprep Bowel Prep Kit 17.5 gram-3.13 gram-1.6 gram oral solution 05/11 completed Not Available Not Available Not Available Vitamin D3 50 mcg (2,000 unit) capsule Take 1 capsule every day by oral route as directed . 12/20 completed Not Available Not Available Not Available ropivacai ne (PF) 5 mg/mL (0.5 %) injection solution in office 2022 active [facility] [place] [address]- Not Available Not Available Not Available Brunilda Chewable Low Dose Aspirin 81 mg tablet Chew 1 tablet every day by oral route as directed . 05/02 completed Not Available Not Available Not Available Victoza 2-Gabriel 0.6 mg/0.1 mL (18 mg/3 mL) subcutane ous pen injector Inject 1.2 mg every day by subcutan eous route as directed . 11/01 completed Not Available Not Available Not Available aloglipti n 25 mg tablet Take 1 tablet every day by oral route. 2022 active Not Available Not Available Not Avai lable Jardiance 25 mg tablet Take 1 tablet every day by oral route. 10/15 completed Not Available Not Available Not Available Jardiance 10/31 completed Not Available Not Available Not Available Trulicity 1.5 mg/0.5 mL subcutane ous pen injector Inject 0.5 mL every week by subcutan eous route. 11/22 completed injectio n once weekly Not Available Not Available Not Available Vitamin B12 Take 1000 mg every day 12/20 completed Not Available Not Available Not Available Fluzone High-Dose 7534-8704 (PF) 180 mcg/0.5 mL intramusc ular syringe ADM 0.5ML IM UTD 05/11 completed Not Available Not Available Not Available diclofena c 1 % gel topical kit 2022 active Not Available Not Available Not Avai lable Shingrix (PF) 50 mcg/0.5 mL intramusc ular suspensio n, kit 11/21 completed Not Available Not Available Not Available cyanocoba peng (vit B-12) 1,000 mcg sublingua l lozenge Place by sublingu al route. 2022 active Not Available Not Available Not Avai lable Ozempic 0.25 mg or 0.5 mg (2 mg/1.5 mL) subcutane ous pen injector Inject by subcutan eous route. 2020 active Not Available Not Available Not Avai lable Fluzone High-Dose 2019-20 (PF) 180 mcg/0.5 mL intramusc ular syringe TO BE ADMINIST ERED BY PHARMACI ST FOR IMMUNIZA TION 11/21 completed Not Available Not Available Not Available Vitals Date Recorded Body mass index (BMI) Body height Body weight Provider Name and Address Organization Details Last Updated DateTime 03/31/2022 27.7 kg/m2 170.18 cm 36921.85 g Not Available [facility] 11/05/2022 00:56:19 Date Recorded Body height Provider Name an d Address Organization Details Last Updated DateTime 11/07/2021 167.64 cm Not Available [facility] 3 00:56:18 Date Recorded Body height Provider Name an d Address Organization Details Last Updated DateTime 10/31/2022 170.18 cm Not Available [facility] 3 00:56:18 Date Recorded Body height Provider Name an d Address Organization Details Last Updated DateTime 11/14/2022 170.18 cm ANNETTE Mauro [email or web address] 11/14/2022 08:53:40 Date Recorded Body height Body mass index (BMI) Body weight Provider Name and Address Organization Details Last Updated DateTime 04/24/2023 167.64 cm 30 kg/m2 61829.18 g ANNETTE [email or web address] [email or web address] 04/24/2023 14:36:09 Social History Question Answer Notes LastModified by Organizat ion Details LastModified Time Tobacco Smoking Status Never Smoker Not Available [facility] 11/05/2022 00:51:36 What Is Your Level Of Alcohol Consumption? Occasional [id number] Information not available 11/05/2022 What Was The Date Of Your Most Recent Tobacco Screening? 11/22/2020 [id number] Information not available 11/05/2022 Sex: Male Functional Status None recorded. Mental Status None recorded. Family History Relationship Description Onset Age of this Age Resolved Age Notes LastModified by Organization Details LastModified Time Unspecified Relation Family history of malignant neoplasm [id number] Not available 11/05/2022 00:53:12 Mother Heart disease [id number] Not available 11/05/2022 00:53:12 Father Diabetes mellitus [id number] Not available 11/05/2022 00:53:12 Medical History Condition Response BLINDNESS N KIDNEY STONES N MRSA N CARPAL TUNNEL SYNDROME Y LUNG DISEASE/DISORDER N HISTORY OF DRUG ABUSE N RADIATION / CHEMOTHERAPY N COPD N SPORTS INJURY N ANKLE PAIN N BLOOD DISEASES N SCHIZOPHRENIA N SHINGLES N BOWEL PROBLEMS N SHOULDER PAIN N DEPRESSION (INCLUDING POST ) N STROKE/TIA N KNEE PAIN N ULCERS N BENIGN PROSTATIC HYPERPLASIA N OBESITY N GERD/NAUSEA N ANEURYSM N URINARY/BLADDER/KIDNEY PROBLEMS N CORONARY ARTERY DISEASE (CAD) N ADDICTION CONCERNS N USE OF BLOOD THINNERS N SKIN PROBLEMS N EMPHYSEMA N MUSCLE,JOINT OR BONE PROBLEMS N DVT N STOMACH ULCERS N BLOOD CLOTS N USE OF NSAIDS N CONCUSSION OR SPINAL TRAUMA N NEUROPATHY N AIDS/HIV N FRACTURES N ELBOW PAIN N HYPERTENSION N TOURETTE'S N ANXIETY DISORDER N Metal allergy N BLOOD TRANSFUSION N ANEMIA/BLOOD DISORDER N BIPOLAR DISORDER N BRONCHITIS N OSTEOARTHRITIS N TUBERCULOSIS N FOOT PROBLEM N HEART VALVE DISORDERS N ALLERGIES/HAYFEVER N SOFT TISSUE INJURY N INFECTIOUS DISEASE N HEART ARRHYTHMIA N INSOMNIA N RHEUMATOID ARTHRITIS N HIGH CHOLESTEROL / HYPERLIPIDEMIA N EDEMA N CHRONIC PAIN SYNDROME N CAROTID BLOCKAGE N BACK / NECK PROBLEMS N HAVE YOU BEEN HOSPITALIZED OR SEEN IN [facility] IN THE PAST YEAR ? N BURSITIS N HERNIATED DISC N DIALYSIS N FIBROMYALGIA N OSTEOPOROSIS N ARTHRITIS N NO SIGNIFICANT PAST MEDICAL HISTORY N PERIPHERAL NEUROPATHY N DIABETES, TYPE Y HEARTBURN / REFLUX N HEPATITIS / LIVER DISEASE N GOUT N SLEEP DISORDER N ALZHEIMER'S DISEASE N HERPES N SEIZURES/EPILEPSY N HEADACHES/MIGRAINES N VASCULAR DISEASE N HIP PAIN N Blood Disorder N DIZZINESS N HEAD TRAUMA OR INJURY N HEART DISEASE/HEART PROBLEMS N MULTIPLE SCLEROSIS N CARDIAC ARRHYTHMIA N CANCER: SPECIFY N ANESTHESIA COMPLICATIONS N ATRIAL FIBRILLATION N AUTOIMMUNE DISEASE N Immunizations Vaccine Type Date Status Note Provider Nam e and Address Organization Details Recorded Time COVID-19, mRNA, LNP-S, PF, 100 mcg/0.5mL dose or 50 mcg/0.25mL dose 10/27/202 1 completed Not Available [facility] 11/05/2022 01:07:56 influenza, unspecified formulation 7 completed Not Available [facility] 11/05/2022 01:07:56 influenza, unspecified formulation 6 completed Not Available [facility] 11/05/2022 01:07:56 Past Encounters Encounter ID Performer Location Encounter Start Date Encounter Closed Date Diagnosis/Indication Diagnosis SNOMED-CT Code Diagnosis ICD10 Code [id number] [facility] [address] [address] 11/08/2020 00:00:00 11/08/2020 09:54:30 [id number] [facility] [address] [address] 11/22/2020 00:00:00 11/22/2020 09:24:19 [id number] [facility] [address] [address] 05/16/2021 00:00:00 05/16/2021 11:27:10 [id number] [facility] [address] [address] 10/24/2021 00:00:00 10/24/2021 09:17:17 [id number] [facility] [address] [address] 11/07/2021 00:00:00 11/07/2021 09:26:44 [id number] [facility] [place] [address] [place] [address] 03/31/2022 00:00:00 03/31/2022 17:56:39 [id number] [facility] [place] [address] [place] [address] 10/31/2022 00:00:00 10/31/2022 10:28:54 [id number] CARROLL Herring [facility] [place] [address] [place] [address] 11/14/2022 08:48:55 11/14/2022 09:38:46 Osteoarthritis of right knee joint 8273969431 20097 M17.11 [id number] CARROLL Herring [facility] [address] [place] [address] 04/24/2023 14:08:07 04/24/2023 16:02:39 Osteoarthritis of right knee joint 0832476510 70283 M17.11 Health Concerns Section Related Observation LastModified by Organization Detai ls LastModified Time None Recorded Concern Status LastModified by Organization Details LastModified Time None Recorded Advance Directives Directive None Recorded Payers Encounter Date Sequence Insurance Name Policy Number Policy Sanchez Covered Member ID Sanchez Member ID Guarantor Name 11/14/2022 1 [place] Art Goodwinsic [id number] Wilmer Vee Mod[employer] 11/14/2022 2 [place] [id number] Wilmer Madrigalc [id number] Wilmer Laytonrusic 04/24/2023 1 [place] Art Laytonrusic [id number] Wilmer Vee Modrusic 04/24/2023 2 [place] [id number] Wilmer Goodwinsic [id number] Wilmer Goodwinsic
--- OUTSIDE RECORDS SUMMARY | 2024-08-25 17:00 | XMS_ITS | Clinical Summary ---
Author Organization [facility] Address [address] [place] [address] Care Team Providers Care Boiler House Mechanic Name Role Phone Beck Benites MD Primary Care Provider +1 [phone] Allergies Active Allergy Reactions Criticality Noted Date Comments Penicillins Other (See comments) Low Reaction: feet, hands swell, Reaction was immediate, reaction was 50 years ago Medications glipiZIDE (GLUCOTROL) 10 mg tabletIndicatio ns:type 2 diabetes mellitus Take 10 mg by mouth 2 (two) times a day before breakfast and lunch Active dulaglutide (TRULICITY) 1.5 mg/0.5 mL pen injector Inject 1.5 mg under the skin once a week Takes on Thursday Active empagliflozin (JARDIANCE) 25 mg tabletIndicatio ns:type 2 diabetes mellitus Take 25 mg by mouth daily Active metFORMIN (GLUCOPHAGE) 500 mg tabletIndicatio ns:type 2 diabetes mellitus Take 2,000 mg by mouth daily with dinner Active lisinopril (PRINIVIL,ZESTR IL) 40 mg tabletIndicatio ns:hypertension Take 40 mg by mouth daily Active simvastatin (ZOCOR) 40 mg tabletIndicatio ns:hyperlipidem ia Take 40 mg by mouth nightly Active DULoxetine DR (CYMBALTA) 60 mg capsuleIndicati ons:Anxiety with Depression Take 60 mg by mouth daily Active omeprazole (PriLOSEC) 20 mg capsuleIndicati ons:Stress Ulcer Prophylaxis Take 20 mg by mouth daily Active cyanocobalamin (Vitamin B-12) 1,000 mcg tabletIndicatio ns:Prevention of Vitamin B12 Deficiency Take 1,000 mcg by mouth daily Active cholecalciferol (VITAMIN D-3) 2000 unit capsuleIndicati ons:Vitamin D Deficiency Take 2,000 Units by mouth daily Active coenzyme Q10 100 mg capsuleIndicati ons:vitamin health Take 100 mg by mouth 2 (two) times a day Active ascorbic acid, vitamin C, (VITAMIN C) 500 mg CR tabletIndicatio ns:Vitamin C Deficiency Take 500 mg by mouth daily Active vitamin E (vitamin E) 400 unit capsule Take 400 Units by mouth daily Active famotidine (PEPCID) oral suspension 40 mg/5 mLIndications:g astroesophageal reflux disease Take 20 mg by mouth as needed for heartburn Active aspirin 81 mg enteric coated tablet Take 1 tablet (81 mg total) by mouth daily with dinner 0 Active vitamin E (vitamin E) 1,000 unit capsuleIndicati ons:Vitamin E Deficiency Take 1,000 Units by mouth daily. Indications: deficiency of vitamin E Active docusate sodium (Colace) 100 mg capsuleIndicati ons:constipatio n Take 100 mg by mouth 2 (two) times a day as needed for constipation. Indications: constipation Active Active Problems Problem Noted Date Diagnosed Date Osteoarthritis of lumbar spine 12/08/2016 Inflammation of sacroiliac joint 09/21/2016 Lumbago 09/21/2016 Pain in buttock 09/16/2016 Pain of lower extremity 09/16/2016 Spinal stenosis 09/16/2016 Spondylolisthesis 09/16/2016 Chronic pain 09/16/2016 Postlaminectomy syndrome of lumbar region 2016 Immunizations Name Administration Dates Next Due Influenza, Trivalent, IM (MDV) 06/06/2015 Influenza, Unspecified 06/20/2019 Surgical History Surgery Date Site/Laterality Comments IN ARTHRD ANT INTERBODY MIN DSC LUMBAR Lumbar Vertebral Fusion - (Added by TW Conv) PROSTATECTOMY Medical History Medical History Date Comments Hearing loss Hearing aid HTN (hypertension) Hyperlipidemia Sleep apnea Diabetes (HCC) Spinal stenosis Prostate cancer (HCC) Family History Medical History Relation Name Comments Cancer Father Family history of cancer - (Added by TW Conv) Diabetes Father Family history of diabetes mellitus - (Added by TW Conv) Heart disease Father Family history of cardiac disorder - (Added by TW Conv) Stroke Father Family history of cerebrovascular accident (CVA) - (Added by TW Conv) Cancer Mother Family history of cancer - (Added by TW Conv) Relation Name Status Comments Father Mother Social History Tobacco Use Types Packs/Day Years Used Date Smoking Tobacco: Former Cigarettes 0.1 8 1 - 09/05/1995 Smokeless Tobacco: Never Alcohol Use Standard Drinks/Week Comments Yes 2 (1 standard drink = 0.6 oz pur e alcohol) occassionally Sex and Gender Information Value Date Recorded Sex Assigned at Not on file Legal Sex 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 Gender Identity Not on file Sexual Orientation Not on file Obstetrics History Last Filed Vital Signs Vital Sign Reading Time Taken Comments Blood Pressure 110/60 09/26/2019 12:39 PM EMBOSSING UNIT OPERATOR Pulse 88 09/26/2019 12:39 PM EMBOSSING UNIT OPERATOR Temperature 36 ??C (96.8 ??F) 09/26/2019 12:39 PM EMBOSSING UNIT OPERATOR Respiratory Rate 16 09/26/2019 12:39 PM EMBOSSING UNIT OPERATOR Oxygen Saturation 97% 09/26/2019 12:39 PM EMBOSSING UNIT OPERATOR Inhaled Oxygen Concentration - - Weight 92 kg (202 lb 13.2 oz) 09/19/2019 7:16 AM EMBOSSING UNIT OPERATOR Height 175.3 cm (5' 9 ) 09/19/2019 7:16 AM EMBOSSING UNIT OPERATOR Body Mass Index 29.95 09/19/2019 7:16 AM EMBOSSING UNIT OPERATOR Plan of Treatment Health Maintenance Due Date Last Done Comments Depression Screening 1941 Fall Risk Assessment 1941 DTaP/Tdap/Td Vaccine (1 - Tdap) 1952 Hepatitis B Screening 1959 Zoster Vaccine (1 of 2) 1991 Pneumococcal vaccine 65+ (1 of 1 - PCV) 2006 Well Visit 65+ 2006 Influenza Vaccine (#1) 2024 9, 07/08/2017, 06/09/2017, Additional history exists Medical Devices Implanted Type Area Him Specialists Device Identifier Shelf Expiration Date Model / Serial / Lot [employer] 700-025 I Factor Allograft Putty Syringe Graft 2.5cc Bone - [id number] Implanted:Qty: 1 on 09/19/2019 by Don Estrella MD at N/A: Back [employer] 05/07/2022 700-025 / / [id number] Synthes 08.803.050 [place] Revolve [id number] Radiopaque Self Distract Bevel Edge - [id number] Implanted:Qty: 1 on 09/19/2019 by Don Estrella MD at N/A: Back [employer]ynthe[employer] I 08.803.050 / / [employer] Pa-65-45 Streamline 6.5mm 45mm Polyaxial Spine Pedicle Screw Bone - [id number] Implanted:Qty: 2 on 09/19/2019 by Don Estrella MD at N/A: Back [employer] PA-65 -4 5 / / Screw Set Streamline Tl Screw System - [id number] Implanted:Qty: 4 on 09/19/2019 by Don Estrella MD at N/A: Back [employer] -SETSC RE W / / Qsrs Pre-Bent 5.5mm X 55mm - [id number] Implanted:Qty: 2 on 09/19/2019 by Don Estrella MD at N/A: Back [employer] 10-55-IN -5 5 / / Insurance MEDICARE [employer] S[place]IOR [place] [address] [place] [address] Member Subscriber Plan / Payer (Ef fective 2019-Present) Name:Wilmer Bowling Relation to Subscriber:Not on file Subscriber ID:Not on file Payer ID:[id number] (NAIC) Group ID:[id number] Type:BC OTHER Address: [address] [place] [address] [place] [address] MEDICARE [facility] MEDICARE [facility] [address] [place] [address] [place] [address] MEDICARE [employer] SENIOR SUPPLEMENT Advance Directives For more information, please contact: [phone] Documents on File Type Date Recorded Patient Parent Trainer Expl anation ADVANCE DIRECTIVE 10/12/2019 5:16 PM ADVANCE DIRECTIVE 09/19/2019 7:20 AM ADVANCE DIRECTIVE 09/19/2019 6:24 AM * Full Code (Latest Code Status on File) Date Activated Date Inactivated Comments 09/19/2019 1:46 PM 09/20/2019 5:51 PM Care Teams Boiler House Mechanic Relationship Specialty Start Date End Date Beck Benites MD [address] [address] PCP - General 11/06/16
--- OUTSIDE RECORDS SUMMARY | 2024-08-25 17:00 | XMS_ITS | Encounter Summary ---
Author Organization [facility] Healthcare Address [address] [place] [address] Care Team Providers Care Insurance Adjustor Name Role Phone Beck Benites MD Primary Care Provider +1 [phone] Reason for Referral * Diagnostic Imaging (Routine) - Closed Specialty Diagnoses / Procedures Referred By Contac t Referred To Contact Diagnoses Low back pain, unspecified back pain laterality, unspecified chronicity, unspecified whether sciatica present Procedures XR Spine Lumbar 2 or 3 Views Don Estrella MD [address] [address] Phone: tel: fax: [place] [address] [address] Referral ID Status Reason Start Date Expiration Date Visits Re quested Visits Authorized [id number] Closed 12/26/2020 01/25/2022 1 1 Reason for Visit * Diagnostic Imaging (Routine) - Closed Specialty Diagnoses / Procedures Referred By Contac t Referred To Contact Diagnoses Low back pain, unspecified back pain laterality, unspecified chronicity, unspecified whether sciatica present Procedures XR Spine Lumbar 2 or 3 Views Don Estrella MD [address] [address] Phone: tel: fax: [facility] [address] [place] [address] Referral ID Status Reason Start Date Expiration Date Visits Re quested Visits Authorized [id number] Closed 12/26/2020 01/25/2022 1 1 Encounter Details Date Type Department Care Team (Latest Contact Info) Description 12/26/2020 9:59 AM CDT - 12/26/2020 11:59 PM CDT Hospital Encounter [facility] - Imaging [address] [place] [id number] Don Estrella MD [address] [facility] [address] [place] [address] Low back pain, unspecified back pain laterality, unspecified chronicity, unspecified whether sciatica present Discharge Disposition: Discharge to home or self [...] on file 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 Relatively stable retrolisthesis of L2 relative to L3 and of L3 relative to L4. Multilevel degenerative disc disease appearing most advanced at L2-L3. Overall no significant changes compared to the prior study of 10/27/2019. Moderate atherosclerotic calcification of the abdominal aorta and common iliac arteries noted. Electronically signed by: Mil Carvajal M.D. Narrative 12/26/2020 10:51 AM CDT Exam: Lumbar spine 3 view AP and lateral study HISTORY: Low back pain. ??Patient status post lumbar spine fusion. Comparison study dated 10/27/2019. FINDINGS: Full length AP and lateral views of the lumbar spine were obtained as well as a spot lateral view of the lumbosacral angle. Patient is status post prior posterior fusion with placement of interpedicular rods and screws and an interbody graft at the L2-L3 level. ??There appears to be a stable degree of retrolisthesis of L2 relative to L3 measuring approximately 8 to 9 mm. ??There also appears to be retrolisthesis of L3 relative to L4 measuring approximately 9 mm. There is a stable marginal anterior wedge deformity of L1. ??L2-L5 appear normal in height. ??Moderate degenerative disc disease noted at L1-L2 and L3-L4 with severe degenerative disc disease noted at L2-L3. Laminectomy defects noted at least at L3 and L4. ??The AP alignment appeared satisfactory. Procedure Note Mil Carvajal MD - 12/26/2020 Exam: Lumbar spine 3 view AP and lateral study HISTORY: Low back pain. Patient status post lumbar spine fusion. Comparison study dated 10/27/2019. FINDINGS: Full length AP and lateral views of the lumbar spine were obtained as well as a spot lateral view of the lumbosacral angle. Patient is status post prior posterior fusion with placement of interpedicular rods and screws and an interbody graft at the L2-L3 level. There appears to be a stable degree of retrolisthesis of L2 relative to L3 measuring approximately 8 to 9 mm. There also appears to be retrolisthesis of L3 relative to L4 measuring approximately 9 mm. There is a stable marginal anterior wedge deformity of L1. L2-L5 appear normal in height. Moderate degenerative disc disease noted at L1-L2 and L3-L4 with severe degenerative disc disease noted at L2-L3. Laminectomy defects noted at least at L3 and L4. The AP alignment appeared satisfactory. IMPRESSION: Patient status post prior posterior fusion and placement of an interbody graft at L2-L3. Relatively stable retrolisthesis of L2 relative to L3 and of L3 relative to L4. Multilevel degenerative disc disease appearing most advanced at L2-L3. Overall no significant changes compared to the prior study of 10/27/2019. Moderate atherosclerotic calcification of the abdominal aorta and common iliac arteries noted. Electronically signed by: Mil Carvajal M.D. Don Estrella MD IMG XR PROCEDURES Final R esult documented in this encounter Visit Diagnoses Diagnosis Low back pain, unspecified back pain laterality, unspecified chronicity, unspecified whether sciatica present documented in this encounter Care Teams Insurance Adjustor Relationship Specialty Start Date End Date Beck Benites MD [address] [address] PCP - General 11/06/16 documented as of this encounter
--- OUTSIDE RECORDS SUMMARY | 2024-08-25 17:00 | XMS_ITS | Referral Summary ---
Author Organization [facility] Address [address] [place] [address] Care Team Providers Care Label Sewer Name Role Phone Beck Benites MD Primary Care Provider [phone] [phone] Allergies Active Allergy Reactions Criticality Noted Date [...] Trivalent, IM (MDV) 06/06/2015 Influenza, Unspecified 06/20/2019 Social History Tobacco Use Types Packs/Day Years Used Date Smoking Tobacco: Former Cigarettes 0.1 8 1 - 09/05/1995 Smokeless Tobacco: Never Alcohol Use Standard Drinks/Week Comments Yes 2 (1 standard drink = 0.6 oz pur e alcohol) occassionally Sex and Gender Information Value Date Recorded Sex Assigned at Not on file Legal Sex Male 4:01 AM CONSTRUCTION CODE ADMINISTRATOR Gender Identity Not on file Sexual Orientation Not on file Last Filed Vital Signs Vital Sign Reading Time Taken Comments Blood Pressure 110/60 09/26/2019 12:39 PM CONSTRUCTION CODE ADMINISTRATOR Pulse 88 09/26/2019 12:39 PM CONSTRUCTION CODE ADMINISTRATOR Temperature 36 ??C (96.8 ??F) 09/26/2019 12:39 PM CONSTRUCTION CODE ADMINISTRATOR Respiratory Rate 16 09/26/2019 12:39 PM CONSTRUCTION CODE ADMINISTRATOR Oxygen Saturation 97% 09/26/2019 12:39 PM CONSTRUCTION CODE ADMINISTRATOR Inhaled Oxygen Concentration - - Weight 92 kg (202 lb 13.2 oz) 09/19/2019 7:16 AM CONSTRUCTION CODE ADMINISTRATOR Height 175.3 cm (5' 9 ) 09/19/2019 7:16 AM CONSTRUCTION CODE ADMINISTRATOR Body Mass Index 29.95 09/19/2019 7:16 AM CONSTRUCTION CODE ADMINISTRATOR Plan of Treatment Not on file Medical Devices Implanted Type Area Supervisor Drawing Device Identifier Shelf Expiration Date Model / Serial / Lot [employer] 700-025 I Factor Allograft Putty Syringe Graft 2.5cc Bone - [id number] Implanted:Qty: 1 on 09/19/2019 by Don Estrella MD at [facility] N/A: Back [employer] 05/07/2022 700-025 / / [id number] Synthes 08.803.050 [place] Revolve [id number] Radiopaque Self Distract Bevel Edge - [id number] Implanted:Qty: 1 on 09/19/2019 by Don Estrella MD at [facility] N/A: Back [employer]ynthe[employer] I 08.803.050 / / [employer] -65-45 Streamline 6.5mm 45mm Polyaxial Spine Pedicle Screw Bone - [id number] Implanted:Qty: 2 on 09/19/2019 by Don Estrella MD at [facility] N/A: Back [employer] -65 -4 5 / / Screw Set Streamline Tl Screw System - [id number] Implanted:Qty: 4 on 09/19/2019 by Don Estrella MD at [facility] N/A: Back [employer] -SETSC RE W / / Qsrs Pre-Bent 5.5mm X 55mm - [id number] Implanted:Qty: 2 on 09/19/2019 by Don Estrella MD at [facility] N/A: Back [employer] 10-55-MT -5 5 / / Insurance MEDICARE AET SENIOR [facility] MEDICARE [facility] MEDICARE [facility] MEDICARE AETNA SENIOR SUPPLEMENT Advance Directives For more information, please contact: [phone] Documents on File Type Date Recorded Patient Scowman Expl anation ADVANCE DIRECTIVE 10/12/2019 5:16 PM ADVANCE DIRECTIVE 09/19/2019 7:20 AM ADVANCE DIRECTIVE 09/19/2019 6:24 AM * Full Code (Latest Code Status on File) Date Activated Date Inactivated Comments 09/19/2019 1:46 PM 09/20/2019 5:51 PM Care Teams Label Sewer Relationship Specialty Start Date End Date Beck Benites MD [address] [address] PCP - General 11/06/16
--- OUTSIDE RECORDS SUMMARY | 2024-08-25 17:01 | XMS_ITS | Encounter Summary ---
Author Organization [facility] Home Care Servic es Address [address] [place] [address] Phone Care Team Providers Care Slip Tender Name Role Phone Beck Benites MD Primary Care Provider [phone] [phone] Reason for Visit * Auth/Cert Specialty Diagnoses / Procedures Referred By Contac t Referred To Contact Referral ID Status Reason Start Date Expiration Date Visits Re quested Visits Authorized [id number] 1 1 Encounter Details Date Type Department Care Team (Late st Contact Info) Description 09/26/2019 12:30 PM BEE ROBBER Home Care Visit [facility] Home Health [address] [place] [address] An Herron, PT PT OASIS DISCHARGE Social History Tobacco Use Types Packs/Day Years Used Date Smoking Tobacco: Former Cigarettes 0.1 8 1 - 09/05/1995 Smokeless Tobacco: Never Alcohol Use Standard Drinks/Week Comments Yes 2 (1 standard drink = 0.6 oz pur e alcohol) occassionally Sex and Gender Information Value Date Recorded Sex Assigned at Not on file Legal Sex Male 4:01 AM BEE ROBBER Gender Identity Not on file Sexual Orientation Not on file documented as of this encounter Last Filed Vital Signs Vital Sign Reading Time Taken Comments Blood Pressure 110/60 09/26/2019 12:39 PM BEE ROBBER Pulse 88 09/26/2019 12:39 PM BEE ROBBER Temperature 36 ??C (96.8 ??F) 09/26/2019 12:39 PM BEE ROBBER Respiratory Rate 16 09/26/2019 12:39 PM BEE ROBBER Oxygen Saturation 97% 09/26/2019 12:39 PM BEE ROBBER Inhaled Oxygen Concentration - - Weight - - Height - - Body Mass Index - - documented in this encounter Plan of Treatment Not on file documented as of this encounter Visit Diagnoses Not on filedocumented in this encounter Home Health Visit - Care Plan Visit Details Visit Type -PT OASIS Dischar ge Discipline -Physical Therapy Problems Problem Description Start Date Status Goals Interve ntions Homebound Status Disciplines: Physical Therapy Patient's homebound status 09/22/2019 Active 1 goal linked to scheduled/documen rosita intervention 1 goal intervention scheduled/document ed in this visit Monitor patient's vital signs every home health visit Disciplines: Physical Therapy Monitor patient's vital signs every home health visit. 09/22/2019 Active 1 goal linked to scheduled/documen rosita intervention 1 goal intervention scheduled/document ed in this visit PT Impaired Functional Mobility Disciplines: Physical Therapy Impaired functional mobility 09/22/2019 Active - 3 problem interventions scheduled/document ed in this visit Goals Goal Associated Problem Outcome Goal Met? Visit Notes Patient recieves care at the most appropriate care setting Description: Patient receives care at the most appropriate care setting. Homebound Status No Measure vital signs during every home health visit during episode of care Description: Home psychiatric clinician to measure vital signs during every home health visit during episode of care. Monitor patient's vital signs every home health visit No Interventions Intervention Associated Problem/Goal Status Variance Visit Notes Homebound Status Description: Patient is homebound due to limited ambulation, fall risk, post op restrictions s/ back surgeyr- no bending , lifting over 10lbs or twisting of back Problem:Homebound Status Goal:Patient recieves care at the most appropriate care setting Completed Patient is homebound due to limited ambulation, fall risk, post op restrictions s/ back surgeyr- no bending , lifting over 10lbs or twisting of back Monitor Vital Signs Description: Monitor blood pressure, pulse, oxygen saturation, respirations Problem:Monitor patient's vital signs every home health visit Goal:Measure vital signs during every home health visit during episode of care Completed Home Exercise Program (HEP) Description: Instruct patient/caregiver and perform HEP. Problem:PT Impaired Functional Mobility Completed INstructed patient in standing hip flex, hip abd, heel raises, mini squats, hip ext and knee flex. Has written HEP. INstructed to perform 2 x day in painfree ROM. INstructed to cont with supine exercises. Patient verbalizes good understanding. No pain with the exercises Gait/Stair Training Description: Instruct patient/caregiver and perform gait/stair training. Problem:PT Impaired Functional Mobility Completed gait training without device levle surfaces Balance Training/Activities Description: Instruct patient/caregiver and perform balance training activities. Problem:PT Impaired Functional Mobility Completed static and dynamic balance training documented in this encounter Home Health Visit - Actions and Narratives Actions sttes he has been doing his walking up to 4 min. documented in this encounter Care Teams Slip Tender Relationship Specialty Start Date End Date Beck Benites MD [address] [address] PCP - General 11/06/16 documented as of this encounter
--- OUTSIDE RECORDS SUMMARY | 2024-08-25 17:01 | XMS_ITS | Encounter Summary ---
Author Organization [facility] Home Care [facility] es Address [address] [place] [address] Phone Care Team Providers Care Buffing And Polishing Wheel Repairer Name Role Phone Beck Benites MD Primary Care Provider [phone] [phone] Reason for Visit * Auth/Cert Specialty Diagnoses / Procedures Referred By Contac t Referred To Contact Referral ID Status Reason Start Date Expiration Date Visits Re quested Visits Authorized [id number] 1 1 Encounter Details Date Type Department Care Team (Late st Contact Info) Description 09/29/2019 Home Care Visit [facility] Home Health [address] [place] [address] An Herron, PT TELEPHONE ENCOUNTER Social History Tobacco Use Types Packs/Day Years Used Date Smoking Tobacco: Former Cigarettes 0.1 8 1 - 09/05/1995 Smokeless Tobacco: Never Alcohol Use Standard Drinks/Week Comments Yes 2 (1 standard drink = 0.6 oz pur e alcohol) occassionally Sex and Gender Information Value Date Recorded Sex Assigned at Not on file 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
--- OUTSIDE RECORDS SUMMARY | 2024-08-25 17:02 | XMS_ITS | Encounter Summary ---
Author Organization [facility] Care Team Providers Care Health Facilities Surveyor Name Role Phone Beck Benites MD Primary Care Provider [phone] [phone] Encounter Details Date Type Department Care Team (Latest Contact Info) Description 09/05/2019 Travel Social History Tobacco Use Types Packs/Day Years Used Date Smoking Tobacco: Former Cigarettes 1 - 09/05/1995 Smokeless Tobacco: Never Alcohol Use Standard Drinks/Week Comments Yes 2 (1 standard drink = 0.6 oz pur e alcohol) occassionally Sex and Gender Information Value Date Recorded Sex Assigned at Not on file Legal Sex Male 4:01 AM SPECIAL 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
--- OUTSIDE RECORDS SUMMARY | 2024-08-25 17:02 | XMS_ITS | Encounter Summary ---
Author Organization [facility] Healthcare Address [address] [place] [address] Care Team Providers Care Software Maintenance Engineer Name Role Phone Beck Benites MD Primary Care Provider [phone] Encounter Details Date Type Department Care Team (Late st Contact Info) Description 09/19/2019 8:30 AM ASSOCIATE PROFESSOR OF RADIOLOGY - 09/19/2019 1:00 PM ASSOCIATE PROFESSOR OF RADIOLOGY Surgery [facility] Operating Room [address] [place] [address] Don Estrella MD [address] [facility] [address] [place] [address] L2-3 Posterior Spinal Decompressive Laminectomy and Fusion with Hardware Revision L4-5 Surgery Details Date/Time Status Location OR Service Patient Class Case Class Case Type Trauma Case? 09/19/2019 8:30 AM Posted [facility] OPERATING ROOM OR Orthopaedic Spine Surgery Admit Elective Panel 1 Procedure LRB Anes Op Region Wound Class Comments L2-3 Posterior Spinal Decompressive Laminectomy and Fusion with Hardware Revision L4-5 N/A General Back Class I - Clean Depuy Synthes Spine New Age Cutler cages, RTI pedicle screws ([email or web address]) Josse to assist, Specialty care Neuro monitoring, (KB) Reps. confirmed Surgeon Surgeon Role Service Panel Don Estrella MD Primary Orthopaedic Spin e 1 documented in this encounter Social History Tobacco Use Types Packs/Day Years Used Date Smoking Tobacco: Former Cigarettes 0.1 8 1 - 09/05/1995 Smokeless Tobacco: Never Alcohol Use Standard Drinks/Week Comments Yes 2 (1 standard drink = 0.6 oz pur e alcohol) occassionally Sex and Gender Information Value Date Recorded Sex Assigned at Not on file Legal Sex Male 4:01 AM ASSOCIATE PROFESSOR OF RADIOLOGY Gender Identity Not on file Sexual Orientation Not on file documented as of this encounter Last Filed Vital Signs Vital Sign Reading Time Taken Comments Blood Pressure 108/53 09/19/2019 1:00 PM ASSOCIATE PROFESSOR OF RADIOLOGY Pulse 76 09/19/2019 1:00 PM ASSOCIATE PROFESSOR OF RADIOLOGY Temperature 36.2 ??C (97.2 ??F) 09/19/2019 12:[address] Respiratory Rate 24 09/19/2019 1:00 PM ASSOCIATE PROFESSOR OF RADIOLOGY Oxygen Saturation 94% 09/19/2019 1:00 PM ASSOCIATE PROFESSOR OF RADIOLOGY Inhaled Oxygen Concentration - - Weight 92 kg (202 lb 13.2 oz) 09/19/2019 7:16 AM ASSOCIATE PROFESSOR OF RADIOLOGY Height 175.3 cm (5' 9 ) 09/19/2019 7:16 AM ASSOCIATE PROFESSOR OF RADIOLOGY Body Mass Index 29.95 09/19/2019 7:16 AM ASSOCIATE PROFESSOR OF RADIOLOGY documented in this encounter Discharge Summaries * Jolene Lal PA - 09/20/2019 1:27 PM CST Inpatient Discharge Summary BRIEF OVERVIEW Admitting Provider: Don Estrella MD Discharge Provider: Don Estrella MD Primary Care Physician at Discharge: Beck Benites MD [phone] Admission Date: 09/19/2019 Discharge Date: 09/20/2019 Admission Location: [facility] Primary Discharge Diagnosis: 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 Secondary Discharge Diagnosis: Past Medical History: Diagnosis Date ??? Diabetes (CMS/HCC) ??? Hearing loss Hearing aid ??? HTN (hypertension) ??? Hyperlipidemia ??? Prostate cancer (CMS/HCC) ??? Sleep apnea ??? Spinal stenosis Past Surgical History: Procedure Laterality Date ??? AR ARTHRODESIS ANT INTERBODY MIN DISCECTOMY,LUMBAR Lumbar Vertebral Fusion - (Added by TW Conv) ??? PROSTATECTOMY DETAILS OF HOSPITAL STAY Presenting Problem/History of Present Illness: Patient is status post L4-5 and L3-4 decompressive laminectomy and fusion [place] [address] Andrews. He now presents with persistent pain in his lower back, neurogenic claudication. MRI workup revealed lumbar stenosis at the L2-3 level. The treatment options were discussed with the patient including continued conservative therapy versus surgery. The risks of surgery were discussed and include but not limited to bleeding, infection, injury to nerves, resulting weakness, numbness, persistent pain, lack of guarantee of good result, risk of nonunion, hardware failure, risk of dural spinal fluid leak, risk of anesthesia, and positioning. He seemed to understand these risks and wished to proceed with surgery. Hospital Course: Patient was admitted directly to surgery on 09/19/19 for the diagnosis listed above. Postoperativelyhe went to the surgical floor under routine monitoring. Postoperative course was significant for pain control on oral medications. Diet was advanced without problems. Removal of indwelling catheter with spontaneous void. Hemovac discontinued. Incision site clean and dry without erythema, edema, discharge. PT/OT evaluation and treatment. Home medication resumed. Postoperative goals were met and patient was appropriate for discharge on 09/20/19. Discharged home with home health PT/OT. Discharge activity, wound care, restrictions and follow-up discussed with patient prior to discharge. Test Results Pending at Discharge: Order Current Status Gross/Hardware Collected (09/19/19 1136) Discharge Details Physical Exam at Discharge: Discharge Condition: stable Pulse: 79 Resp: 14 BP: 112/49 Temp: 36.4 ??C (97.6 ??F) Weight: 92 kg (202 lb 13.2 oz) Pertinent Exam Findings at Discharge: See daily progress notes Discharge Disposition: Discharge to home, home health skilled care Code Status at Discharge: Full code Discharge Instructions: Other Instructions Ambulatory referral to Home Health Service Line: Home Health Primary disciplines requested: Physical Therapy Secondary disciplines requested: Occupational Therapy Home Health Services: Therapy to Eval/ Treat Physician to follow patient's care (the person listed here will be responsible for signing ongoing orders): Referring Provider Requested Start of Care Date: Within 2 - 3 Days I attest that I or another qualified licensed provider saw the patient 90 days prior to or 30 days post admission and this face to face encounter meets the necessary Home Health requirements. The face to face encounter occurred on (date): 09/19/2019 The encounter with the patient was in whole, or in part, for the following medical condition, whichis the primary reason for home health care. (List medical condition): Lumbar fusion I certify that, based on my findings, the following services are medically necessary skilled home health services: Therapy to Eval/ Treat Clinical findings that support the need for home care: Other Comment: Postop strengthening I certify that my clinical findings support patient's homebound status. Homebound criteria met because: Pain and impaired mobility post-op Special Instructions [facility] Dr. Don Estrella MD, FACS [address] [place] [address] Email: [email or web address] DISCHARGE INSTRUCTIONS INCISION * Have someone look at your incision daily. Should you notice: drainage, incisional separation, increased redness at the incision site, or a temperature greater than 101??F, call the office * If your incision is closed with skin glue, do not pick at the glue. It will flake off in 2-4 weeks * If you have a steri-strips over your incision, keep them in place until they fall off or, if you are 10 days postop, you may remove them * If you have ashley they will be removed at your first postoperative appointment which is typically 10 days after surgery. * If you have a large hand or arm dressing in place, please leave this on until your follow up. Youmay place a plastic bag over the dressing in order to shower. Do not get the dressing wet * There is no need for a dressing to the neck or low back incision unless you have drainage. Do notapply any lotions, ointments, makeup, or creams to your incision FOLLOW UP * You have a follow up appointment in your pre-surgery paperwork. If you can't remember your appointment date/time, call our office. A reminder phone call is typically given at least one day prior toyour appointment * If problems arise or you have any questions, please call the office SHOWERING *Shower daily and allow the soap and water to run over the incision. Do not scrub your incision. Pat incision dry *No immersion in bathtubs, swimming pools, hot tubs, lakes until incision is completely healed SMOKING Not only will smoking with greatly compromise the success of your spinal fusion, but puts you at higher risk for pneumonia and other complications . STOP smoking!! MEDICATIONS *DO NOT take more pain medication than prescribed. It can't be refilled early! *If you had a FUSION (both lumbar and cervical) - DO NOT TAKE NSAIDS (Motrin, Advil, Aleve, etc) until Dr. Bowie given you approval to start these medications * For refills, please plan ahead and phone the office on Thursday or Thursday * If you are taking narcotic pain medication, be alert for constipation! You will most likely need a laxative or stool softener while taking these medications ACTIVITY * If you are given a back brace, then use it when you are up! It will remind you to use good body mechanics. You do not need to wear the brace when lying down, sleeping, bathing or use the bathroom * You need to walk daily, even if you have pain! You need to walk at least 10 minutes per hour. *No lifting until you are seen at your first post-op appointment. Light activity and walking are encouraged * Driving will be addressed at your first post-op appointment * You may climb stairs as tolerated, using the handrail for safety XRAYS * If you need an xray for you first post-op appointment, you will be given a script for the xray GO IMMEDIATELY TO THE EMERGENCY DEPARTMENT WHEN: SHORTNESS OF BREATH OR ANY BREATHING DIFFICULTIES CALL THE OFFICE WHEN: * Temperature greater than 101F * You have increased pain, swelling, or redness at your incision site * You have increased drainage from your incision *You have difficulty swallowing *You have difficulty with you bowel or bladder that is unusual for you *Any other questions or concerns? Call the office Home Health Agency: [facility] / [place] office Contact number: [phone] Services: PHYSICAL THERAPY The [employer] will be contacting you to set up a start of care date. If you have any questions, please contact the number above. Thank you! Discharge Medications: Current Medications TAKE these medications ascorbic acid (vitamin C) 500 mg CR tablet Commonly known as: VITAMIN C Take 500 mg by mouth daily aspirin 81 mg enteric coated tablet Take 1 tablet (81 mg total) by mouth daily with dinner Start taking on: September 26, 2019 cholecalciferol 2000 unit capsule Commonly known as: VITAMIN D-3 Take 2,000 Units by mouth daily coenzyme Q10 100 mg capsule Take 100 mg by mouth 2 (two) times a day cyanocobalamin 1,000 mcg tablet Commonly known as: Vitamin B-12 Take 1,000 mcg by mouth daily dulaglutide 1.5 mg/0.5 mL pen injector Commonly known as: TRULICITY Inject 1.5 mg under the skin once a week Takes on Thursday DULoxetine DR 60 mg capsule Commonly known as: CYMBALTA Take 60 mg by mouth daily empagliflozin 25 mg tablet Commonly known as: JARDIANCE Take 25 mg by mouth daily famotidine 8 mg/mL suspension Commonly known as: PEPCID Take 20 mg by mouth as needed for heartburn glipiZIDE 10 mg tablet Commonly known as: GLUCOTROL Take 10 mg by mouth 2 (two) times a day before breakfast and lunch lisinopril 40 mg tablet Commonly known as: PRINIVIL,ZESTRIL Take 40 mg by mouth daily metFORMIN 500 mg tablet Commonly known as: GLUCOPHAGE Take 2,000 mg by mouth daily with dinner omeprazole 20 mg capsule Commonly known as: PriLOSEC Take 20 mg by mouth daily oxyCODONE-acetaminophen 5-325 mg per tablet Commonly known as: PERCOCET Take 1-2 tablets by mouth every 4 (four) hours as needed for pain simvastatin 40 mg tablet Commonly known as: ZOCOR Take 40 mg by mouth nightly vitamin E 400 unit capsule Commonly known as: AQUASOL E Take 400 Units by mouth daily Outpatient Follow-Up: Contact Information for Follow-ups Beck Benites MD Specialty: Family Medicine Relationship: PCP - General [address] [place] [address] Next Steps: Follow up Jolene Lal PA-C [facility] [phone] CIATE PROFESSOR OF RADIOLOGY documented in this encounter Discharge Instructions * Discharge Instr - Other Orders* Vero Perez RN - 09/20/2019 12:02 PM ASSOCIATE PROFESSOR OF RADIOLOGY Home Health Agency: [facility] / [place] office Contact number: [phone] Services: PHYSICAL THERAPY The home health company will be contacting you to set up a start of care date. If you have any questions, please contact the number above. Thank you! CIATE PROFESSOR OF RADIOLOGY * Attachments The following attachments cannot be sent through Care Everywhere. * High Protein Diet (Discharge Care) (Afghan) * Diabetes and Your Skin (Discharge Care) (Afghan) documented in this encounter Medications at Time of Discharge [...] total) by mouth daily with dinner 09/26/2019 dulaglutide (TRULICITY) 1.5 mg/0.5 mL pen injector Inject 1.5 mg under the skin once a week Takes on Thursday oxyCODONE-acetami nophen (PERCOCET) 5-325 mg per tabletIndications :Pain Take 1-2 tablets by mouth every 4 (four) hours as needed for pain 30 tablet 09/20/2019 0 documented as of this encounter Ordered Prescriptions Prescription Sig Dispense Quantity Refills Last Filled Start Date End Date aspirin 81 mg enteric coated tablet Take 1 tablet (81 mg total) by mouth daily with dinner 09/26/2019 oxyCODONE-acetamin ophen (PERCOCET) 5-325 mg per tabletIndications: Pain Take 1-2 tablets by mouth every 4 (four) hours as needed for pain 30 tablet 09/20/2019 0 documented in this encounter Discharge Disposition Disposition Code Departure Means Destination Discharge to home, home health skilled care documented in this encounter Progress Notes * Taylor Hameed, OT - 09/20/2019 1:27 PM CST Occupational Therapy Evaluation 09/20/19 1100 General Chart Reviewed Yes Session Type Evaluation OT Received On 09/20/19 Safe Environment Arm Band Checked Additional Pertinent History L2-3 posterior spinal decompression laminectomy fusion and hardware removal L4-5, pt's last back sx 3.5 years ago Family/Caregiver Present No Occupational Therapy-Patient Goal return home with Precautions Precautions Fall risk;Spinal/Back Precaution Handout Issued Yes (OT packet for spinal sx ) Home Living Type of Home House Home Layout Able to live on main level with bedroom/bathroom Bathroom Shower/Tub Tub/shower unit (curtain in tub area) Bathroom Toilet Standard (vanity on L side while seated) Bathroom Equipment Grab bars in shower/tub;Shower chair Bathroom Accessibility Accessible Home ADL Equipment Ceo & Founder Additional Comments pt wasn't using any AD 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 mobility 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 Level of [place] Independent with ADLs;Independent functional transfers;Independent with ambulation Lives With Spouse Driving Yes ADL Assistance Independent Instrumental ADL (IADL) Assistance Independent Vocational/Occupation Retired Fall within the last 6 months No UE Dressing UE Dressing: Where assessed Chair UE Dressing: Level of assistance Standby Assist LE Dressing LE Dressing: Where assessed Chair LE Dressing: Level of assistance Minimal Verbal Cues (for sequencing and following precautions) LE Dressing: Assistance with Sequencing;Safety;Use of adaptive equipment;Maintains precautions LE Dressing: Equipment Utilized (pt able to bring BLEs up to self, OT demo'd drywall metal stud worker for pant) Kitchen Mobility Kitchen Mobility Comments SBA without AD, with drywall metal stud worker for floor items Toilet Transfers Toilet Transfers Comments SBA without AD, using L grab bar to simulate home vanity Tub Transfers Tub Transfers Comments CGA without AD, side stepping RLE Into tub first, cues for sequencing Pain Assessment Pain Assessment 0-10 Pain Score 5 - Moderate pain Pain Location Back (Lumbar) Clinical Progression Not changed Pain Interventions Medication (See MAR);Repositioned;Ambulation Cognition Orientation Oriented X4 (person, place, time, situation) Following Commands Follows all commands and directions without difficulty Compliance/Behavior Easy to engage Transfer 1 Trials/Comments 1 SBA/CGA for ambulation without AD RUE Assessment RUE Assessment WFL LUE Assessment LUE Assessment WFL Other Comments Comments OT educated pt on safety with mobility, back precautions, AE for self care and item collection Assessment Prognosis Good Barriers to Discharge None Plan Plan Discharge Recommendation/Plan OT Recommendation Home with intermittent assist OT Frequency One-time visit (Discharge from this service) Treatment/Interventions ADL/IADL retraining;Therapeutic activity OT Evaluation Complete Yes Education: Patient has been educated on the role of OT, safety, precautions, ADL training, mobilitytraining and use of adaptive equipment/DME. Education completed via verbal instruction, return demonstration and handouts. Patient verbalized understanding and demonstrated understanding CIATE PROFESSOR OF RADIOLOGY * Teresa Aldridge, COMMERCIAL LOAN SPECIALIST - 09/20/2019 12:47 PM CST Physical Therapy 09/20/19 1030 PT Last Visit Session Type Treatment PT Received On 09/20/19 Safe Environment Arm Band Checked;Notified RN;Call Light within Reach;Chair Alarm placed and activated Subjective Agreeable to Therapy Family/Caregiver Present No Precautions Precautions Bed/Chair Alarm;Fall risk Precaution Comments Pt. educated on spinal packet information, pt. verbilized understanding of information. Pain Assessment Pain Assessment 0-10 Pain Score 3 Pain Type Surgical pain Pain Location Back (Lumbar) Clinical Progression Not changed Cognition Orientation Oriented X4 (person, place, time, situation) Static Standing Balance Static Standing-Balance Support Bilateral upper extremity supported Static Standing-Level of Assistance Close supervision Exercises Exercise per protocol Spinal fusion (pt. educated from packet information previously given by PT.) Bed Mobility 1 Bed Mobility Comments 1 Supine<>EOB via log rolling with CGA. Cues for sequencing. Transfer 1 Trials/Comments 1 Sit<>stand with WW and SBA, cues for hand placement. Car transfer with WW and SBA, cues for sequencing and maintaining back precautions with all activity. Ambulation 1 Distance (ft) 1 450' x 2, 40' Surface 1 Level tile Device 1 Wheeled walker Assistance 1 Contact Guard Assist;Standby Assist Gait: Requires assist with 1 Maintaining balance Gait: Requires verbal cues to 1 Use assistive device safely;Increase step length;Improve upright posture Quality of Gait 1 slow floresita. Ambulation Comments 1 ambulation initially attempted without assistive device, pt. took 5 steps andhad LOB requiring minimal assist for recovery. When using assistive device pt. displays steady gaitpattern with no LOB. Stairs Stair Comments up/down 4 steps with 2 handrails and CGA/SBA. Curbs Curb Height 6 Curb: Method forward Curb: Device Wheeled walker Curb: Level of Assistance Contact Guard Assist Other Comments Other PT Comments Pre activity: 114/55, HR 79,O2 93. Post activity: 125/58, HR 72, O2 94. Assessment Prognosis Good Problem List Gait deviations;Decreased strength;Decreased endurance;Impaired balance;Decreased mobility Plan Plan If this is the last note, consider this the discharge summary;Continue with current plan Recommendation/Plan PT Recommendation/Plan Home with family;Home with intermittent assist;Home Health PT Treatment/Interventions Balance Training;Endurance training;Bed mobility;Gait training;Functional transfer training;Stair training (all goals ongoing.) PT Equipment Recommended (pt. 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 Education completed via explanation, teach back, demonstration and handout . Patient verbalized understanding Cosigned by Chloe Sevilla DPT at 09/20/2019 3:52 PM ASSOCIATE PROFESSOR OF RADIOLOGY CIATE PROFESSOR OF RADIOLOGY CIATE PROFESSOR OF RADIOLOGY * Jolene Lal PA - 09/20/2019 12:15 PM CST Daily Progress SUBJECTIVE POD#1 Interval History: Pt seen and examined. No acute events overnight. Sitting up in chair. States preoperative low back and L>R leg pain improved. C/o mild incisional pain. Tolerating diet. Denies fevers, chills, sweats, Cp, SOB, abd pain, NVD. Denies new focal weakness/deficits. acetaminophen, 1,000 mg, oral, Q6H CHIDI baclofen, 10 mg, oral, Q8H CHIDI docusate sodium, 100 mg, oral, BID DULoxetine DR, 60 mg, oral, Daily insulin lispro, 1-2 Units, subcutaneous, Nightly insulin lispro, 1-3 Units, subcutaneous, TID with meals lisinopril, 40 mg, oral, Daily metFORMIN, 2,000 mg, oral, Daily with dinner simvastatin, 40 mg, oral, Nightly dextrose, 15 g OR dextrose, 250 mL ??? glucagon, 1 mg ??? LORazepam, 0.5 mg, 0.5 mg at 09/19/19 2218 ??? oxyCODONE, 5 mg, 5 mg at 09/20/19 0827 ??? promethazine, 25 mg OBJECTIVE Vitals: Most Recent : Temp: [36.4 ??C (97.6 ??F)-36.8 ??C (98.3 ??F)] 36.8 ??C (98.3 ??F) Pulse: [72-85] 72 BP: (106-121)/(52-57) 121/57 Resp: [16-17] 17 SpO2: [95 %-96 %] 95 % I/O this shift: In: 2416.7 [P.O.:400; I.V.:2016.7] Out: 510 [Urine:450; Drains:60] Physical Exam Vitals signs and nursing note reviewed. Constitutional: Appearance: He is well-developed. HENT: Head: Normocephalic and atraumatic. Eyes: Pupils: Pupils are equal, round, and reactive to light. Neck: Musculoskeletal: Normal range of motion and neck supple. Cardiovascular: Rate and Rhythm: Normal rate and regular rhythm. Heart sounds: Normal heart sounds. Pulmonary: Effort: Pulmonary effort is normal. Breath sounds: Normal breath sounds. No wheezing. Abdominal: General: Bowel sounds are normal. There is no distension. Palpations: Abdomen is soft. Musculoskeletal: Normal range of motion. Skin: General: Skin is warm and dry. Comments: Lumbar incision site with skin glue clean and dry; no erythema, edema, discharge Neurological: General: No focal deficit present. Mental Status: He is alert and oriented to person, place, and time. Comments: Bilateral lower extremity strength 5/5 Push/pulls strong and equal Sensation intact bilaterally Lab/Radiology/Diagnostic Review: Recent Results (from the past 24 hour(s)) POCT glucose Collection Time: 09/19/19 12:47 PM Result Value Ref Range Glucose, POC 153 (H) 70 - 140 mg/dL POCT glucose Collection Time: 09/19/19 4:43 PM Result Value Ref Range Glucose, POC 249 (H) 70 - 140 mg/dL POCT glucose Collection Time: 09/19/19 8:55 PM Result Value Ref Range Glucose, POC 141 (H) 70 - 140 mg/dL CBC without differential Collection Time: 09/20/19 6:08 AM Result Value Ref Range WBC 11.5 (H) 3.8 - 9.9 K/cumm Hgb 11.0 (L) 13.0 - 17.5 g/dL Hct 34.8 (L) 38.9 - 50.3 % Plt 208 150 - 400 K/cumm MPV 10.6 9.1 - 12.3 fL RBC 3.88 (L) 4.30 - 5.80 M/cumm MCV 89.7 81.3 - 96.4 fL MCH 28.4 27.1 - 33.3 pg MCHC 31.6 (L) 32.3 - 35.7 g/dL RDW CV 13.2 11.1 - 14.9 % RDW SD 43.3 35.7 - 48.1 fL NRBC abs 0.00 0.00 - 0.01 K/cumm POCT glucose Collection Time: 09/20/19 6:31 AM Result Value Ref Range Glucose, POC 123 70 - 140 mg/dL POCT glucose Collection Time: 09/20/19 11:54 AM Result Value Ref Range Glucose, POC 140 70 - 140 mg/dL ASSESSMENT/PLAN 1. 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 Afebrile. Vitals stable. Voiding adequately s/p [place] removal. Hemovac with 60ml output since OR. Removed today at bedside. Pain controlled with po pain medication. Lumbar incision with skin glue clean and dry. Ambulating well with therapy. Recommendation for home health PT/OT. Orders placed. Plan for discharge today after therapy. Plan of care discussed with Dr. Estrella. 2. Hypertension (POA): blood pressure stable postoperatively. Continue home medication regimen. 3. Hyperlipidemia (POA): stable. Continue home medication regimen. 4. Diabetes mellitus (POA): blood sugars stable postoperatively. Continue home medication regimen. 5. Sleep apnea (POA): continue CPAP upon discharge. 6. VTE prophylaxis: SCDs. Encourage early ambulation. MARITZA IvanC [facility] [phone] Full Code CIATE PROFESSOR OF RADIOLOGY * Toshia Peñaloza, DPT - 09/19/2019 3:17 PM CST Physical Therapy Evaluation 09/19/19 6257 General Chart Reviewed Yes Session Type Evaluation PT Received On 09/19/19 Safe Environment Arm Band Checked;Chair Alarm placed and activated;Call Light within Reach Subjective Agreeable to Therapy Subjective Comment pt reports he feels pretty good. He states he has burning in his low back across Additional Pertinent History pt underwent a revision of hardware today 09/19/2019 (from previous L3-4-5 fusion) and decompression/laminectomy of L2-3. Family/Caregiver Present Yes (pt's , Jacquelyn, present & supportive throughout session) Physical Therapy-Patient Goal return home independently Precautions Precautions Bed/Chair Alarm;Fall risk;Spinal/Back Precaution Handout Issued Yes Precaution Comments pt able to state 1/3 spinal precautions before education - reviewed all 3 with him and . They voice good understanding. Handout issued. Home Living Type of Home House Home Layout One level;Laundry in basement;Able to live on main level with bedroom/bathroom Home Access Stairs to enter without rails Entrance Stairs-Number of Steps 1 Home Mobility Equipment Wheeled walker;Single point cane;Crutches Additional Comments no devices used at baseline Prior Function Level of [place] Independent with ADLs;Independent functional transfers;Independent with ambulation;Independent with homemaking with ambulation Lives With Spouse Driving Yes Vocational/Occupation Retired Fall within the last 6 months No Prior Function Comments independent with all daily activities without difficulties. Pain Assessment Pain Assessment 0-10 Pain Score 4 Pain Location Back (Lumbar) Pain Descriptors Burning Clinical Progression Not changed Cognition Overall Cognitive Status WFL Orientation Oriented X4 (person, place, time, situation) Compliance/Behavior Easy to engage Sensation Light Touch WFL Balance Balance Yes (formal balance assessment deferred in post-op ortho pt) Static Sitting Balance Static Sitting-Balance Support Feet supported Static Sitting-Sitting Surface Bed Static Sitting-Level of Assistance Close supervision Static Standing Balance Static Standing-Balance Support Bilateral upper extremity supported Static Standing-Level of Assistance Contact guard Dynamic Standing Balance Dynamic Standing-Balance Support Bilateral upper extremity supported Dynamic Standing-Level of Assistance Minimum assistance Bed Mobility 1 Bed Mobility From 1 Supine Bed Mobility Type 1 To Bed Mobility to 1 Edge of bed Level of Assistance 1 Moderate Assist Bed Mobility Comments 1 cues for logroll, pt needed assistance with force production to push up fully to sitting. Transfer 1 Transfer From 1 Sit Transfer Type 1 To and from Transfer to 1 Stand Transfer Level of Assistance 1 Minimum Assist Trials/Comments 1 cues for hand placement Ambulation 1 Distance (ft) 1 90' x 2 Surface 1 Level tile Device 1 Wheeled walker Assistance 1 Contact Guard Assist;Minimum Assist Gait: Requires assist with 1 Maintaining balance Gait: Requires verbal cues to 1 Use assistive device safely;Improve upright posture;Increase step length Quality of Gait 1 mildly tremulous throughout mobility, with knees not quite buckling but questionable. Pt cued to use WW for stability. Tends to push WW too far forward, requiring cues to remain within walker base. Slow floresita, short step length bilaterally. RLE Assessment RLE Assessment (grossly at least 4+/5 throughout bilateral LE's) LLE Assessment LLE Assessment (grossly at least 4+/5 throughout bilateral LE's) Other Comments Other PT Comments Pt was taught a few of his post-op spinal exercises including ankle pumps, gluteal sets, and LAQ to be performed in his chair while sitting. He demonstrated at least 10 reps of eachexercise with good technique. knows to cue him on breathing during isometric exercises. Assessment Prognosis Good Problem List Gait deviations;Decreased strength;Impaired balance;Decreased mobility;Orthopedic restrictions;Pain Plan Plan Plan of care initiated Recommendation/Plan PT Recommendation/Plan Home with family;Home Health PT PT Frequency Daily Treatment/Interventions Balance Training;Bed mobility;Equipment eval/education;Functional activity;Functional transfer training;Gait training;Therapeutic activity;Therapeutic exercise;Transfer training;Stair training;Neuromuscular re-education PT Equipment Recommended (pending progress - today needed walker for safe gait) PT Evaluation Complete Yes Education: Patient and family has been educated on the role of PT, safety , precautions, mobility training and home exercise program. Education completed via explanation, teach back, demonstration and handout . Patient and family verbalized understanding, demonstrated understanding and needs ongoing reinforcement. Multi-Disciplinary Problems (from Physical Therapy) Active Problems Problem: [place] [facility] [place]: 09/19/19 Goal Start Date End Date [facility] 1 09/19/19 -- Goal Details: Pt to demonstrate supine to/from sit and log rolling bilaterally with Modified [place]. Goal Start Date End Date [facility] 2 09/19/19 -- Goal Details: Pt to demonstrate sit-stand and bed-chair transfers with Modified [place]. Goal Start Date End Date [facility] 3 09/19/19 -- Goal Details: Pt to ambulate greater than 150 feet with or without device and Modified [place]for safe home and community distances. Goal Start Date End Date [facility] 4 09/19/19 -- Goal Details: Pt to ascend/descend [address] with SBA for safe home entry/mobility. Goal Start Date End Date [facility] 5 09/19/19 -- Goal Details: Pt to verbalize & demonstrate 3/3 spinal precautions during basic mobility tasks 100%. CIATE PROFESSOR OF RADIOLOGY CIATE PROFESSOR OF RADIOLOGY documented in this encounter H&P Notes * Don Estrella MD - 09/15/2019 12:00 AM CST Date of Admission September 19, 2019. 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 History of Present Illness Patient is a 79-year-old gentleman who is admitted for same-day surgery, revision of hardware L3 toL5, and decompressive laminectomy and fusion at L2-3. He presents with lower back pain, pain acrosslower back into his left buttock down into his left leg. He reports he had surgery by Dr. Andrews in 2016 and had a good result with the surgery and was able to resume most of his normal activities. However, about 6 months ago he had onset of lower back pain, numbness and tingling down into both legs but more so on the left leg. He states this comes on when he is standing and walking. He gets relief by leaning forward or sitting. He has had treatments including epidural injections by Dr. Lilly wh ich initially provided some temporary relief. However, the last injection at L5- S1 did not provide much improvement at all and had increased discomfort. His workup included an MRI of his lumbar spinewhich reveals juxtafusional stenosis at L2-3. Past Medical History Remarkable for arthritis, diabetes, hernia, hypercholesterolemia, prostate problems, use of CPAP for sleep apnea. Medications Include: 1. Glipizide 10 mg tablets. 2. Trulicity 1.5 mg. 3. Jardiance. 4. Metformin. 5. Lisinopril. 6. Simvastatin. 7. Duloxetine. 8. Omeprazole. 9. Aspirin. 10. Tramadol. 11. Aleve. 12. Vitamin D3. Allergies PENICILLIN. Physical Examination He is 5 feet 9-09/08, weighs 204 pounds, BMI is 29.7. Heart rate is 83, blood pressure is 121/79. He is alert. Cranial nerves 2-12 are grossly intact. Motor examination reveals 5/5 strength in deltoids, biceps, triceps, cane weigher helper, iliopsoas, hamstrings, dorsiflexors, plantar flexors, and extensor hallucis longus. Sensory examination is intact to light touch and pinprick throughout. Reflexes are 1 and symmetric at biceps, triceps, wrist, patella, and Achilles. Gait is steady. He has good range of motion of his lumbar spine. He has some pain with palpation of his lumbar spine. He has no pain with straight leg raising. Review of his MRI of his lumbar spine from May 25, 2019, reveals pedicle screw stabilization at L3 to L4 to L5. Facet hypertrophy is seen at the L2-3 level and moderate canal stenosis. 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 Treatment options were discussed with the patient including continued conservative therapy versus surgery. The risks of surgery were discussed and include but not limited to bleeding, infection, injury to nerves, resulting weakness, numbness, persistent pain, lack of guarantee of good result, risk of nonunion, hardware failure, risk of anesthesia, and positioning. He seemed to understand these risks and wished to proceed with surgery. NO CHANGES NOTED Job ID/VF Job ID: [id number] CIATE PROFESSOR OF RADIOLOGY documented in this encounter Nursing Notes * Rosa Lopez RN - 09/20/2019 1:24 PM CST AVS, Discharge zones, and post op checklist printed and reviewed with patient and at the bedside. Both verbalized understanding and noted no further questions. Rx sent to patients pharmacy. Ready for discharge home with home health. CIATE PROFESSOR OF RADIOLOGY documented in this encounter Miscellaneous Notes * Plan of Care - Keila Oconnor RN - 09/20/2019 1:29 PM CST Goals: Clinical Goals for the Shift: Pt will have VSS, adequate pain relief, will get up with 1 assist with gait belt/walker, will void by 1200, and will check BG before meals. Summary: Patient is doing fair. Up with PT/OT - ambulating with walker. Unsteady gait. Medicated with oxycodone 5 mg at 0830 and 1245 for stated relief. Denies numbness/tingling down BLE. Voiding well after umana removed at 0600. Passing flatus. No BM. BG = 140 before lunch. No SSI needed. IV removed for DC. Hemavac emptied this am for 60 ml. It was removed by the TALKBACK HOST after lunch, dressing applied. here to take home. Appetite good. Drinking fluids well. CIATE PROFESSOR OF RADIOLOGY * Plan of Care - Vero Perez RN - 09/20/2019 12:00 PM CST Referral received for Home Health. Patient agreeable to home care services. Home Health services arranged through [facility]- [place] office [phone]. [facility] Commissioning Engineer contact number, . Thank you! CIATE PROFESSOR OF RADIOLOGY * Plan of Care - Kim Olson RN - 09/20/2019 11:19 AM CST CM note-received [facility] orders from MD, spoke with pt. And offered [facility] choice list, wishes to use [facility], [facility], and await acceptance. CIATE PROFESSOR OF RADIOLOGY * Plan of Care - Kim Olson RN - 09/20/2019 8:27 AM CST CM note-pt. Screened for high-risk needs, pt. from home, verified pt's home address, prior to admitindep. With adl's and ambulation, await therapy evals, currently no discharge needs noted. CIATE PROFESSOR OF RADIOLOGY * Plan of Care - Yessica Purcell RN - 09/20/2019 2:12 AM CST Goals: Clinical Goals for the Shift: pain control, VSS, advance mobility Summary: VSS. Patient's pain well controlled with PO pain meds. Ativan administered for anxiety/restlessness. Umana draining clear yellow urine. Lidocaine drip completed. No new issues. CIATE PROFESSOR OF RADIOLOGY * Plan of Care - Megan Muir RN - 09/19/2019 2:47 PM CST Problem: Health Behavior: Goal: Understanding of discharge needs will improve Outcome: Progressing Problem: Lack of Knowledge: Goal: Knowledge of the prescribed therapeutic regimen will improve Outcome: Progressing Problem: Activity: Goal: Ability to ambulate will improve Outcome: Progressing Goal: Muscle strength will improve Outcome: Progressing Goal: Range of joint motion will improve Outcome: Progressing Problem: Physical Regulation: Goal: Ability to avoid complications of mobility impairment will improve Outcome: Progressing Problem: Safety: Goal: Ability to appropriately use an adaptive device for ambulation will improve Outcome: Progressing Goal: Ability to safely and independently change position in bed will improve Outcome: Progressing Goal: Ability to safely transfer will improve Outcome: Progressing Problem: Lack of Knowledge: Goal: Ability to develop a pain control plan will improve Outcome: Progressing Goal: Ability to identify pain intensity on a pain scale and rate it consistently will improve Outcome: Progressing Goal: Ability to notify healthcare provider of pain before it becomes unmanageable or unbearable will improve Outcome: Progressing Problem: Medication: Goal: Satisfaction with pain management regimen will improve Outcome: Progressing Problem: Sensory: Goal: Ability to identify factors that increase the pain will improve Outcome: Progressing Goal: Pain level will decrease Outcome: Progressing Goals: Clinical Goals for the Shift: pain control, VSS, advance mobility Summary: pt working with PT and advancing mobility, VSS and pain controlled CIATE PROFESSOR OF RADIOLOGY * Op Note - Don Estrella MD - 09/19/2019 12:00 AM CST Preoperative Diagnosis 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 Postoperative Diagnosis 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 Procedure Performed Revision of hardware L3, L4 and L5. L2-3 decompressive laminectomy, diskectomy, posterior lumbar interbody fusion using OPAL interbody cage, local autograft and i-Factor. Pedicle screw stabilization L2 to L3 using RTI instrumentation, use of i-Factor as well. Surgeon Dr. Don Estrella. Carding Machine Feeder Josse Nguyen. Indication for Procedure Patient is status post L4-5 and L3-4 decompressive laminectomy and fusion [place] [address] Andrews. He now presents with persistent pain in his lower back, neurogenic claudication. MRI workup revealed lumbar stenosis at the L2-3 level. The treatment options were discussed with the patient including continued conservative therapy versus surgery. The risks of surgery were discussed and include but not limited to bleeding, infection, injury to nerves, resulting weakness, numbness, persistent pain, lack of guarantee of good result, risk of nonunion, hardware failure, risk of dural spinal fluid leak, risk of anesthesia, and positioning. He seemed to understand these risks and wished to proceed with surgery. Procedure After adequate general endotracheal anesthesia was established, patient was placed in the prone position on the operating room table. All bony prominences were padded. The lumbar area was prepped with DuraPrep. Sterile drapes were applied. His prior incision was marked with a marking pen. 0.25% Marcaine with epinephrine used for local. A 10 blade was used to make an incision in skin down to the lumbodorsal fascia. Scar tissue was encountered. This was then dissected laterally to expose the instrumentation at L3, L4 and L5. Some bone overgrowth was encountered. This was removed and then the set screws were removed and then the rods were removed on each side. The L4 and L5 pedicle screws werealso removed. Dissection then continued to expose the L2 spinous process, L2-3 facet complex and [id number] process. Self-retaining retractors were placed. The Midas Tom was used to fashion entry sites for pedicle screw placement at L2 bilaterally. These were then tapped and checked with fluoroscopic images. The spinous process of L2 was then partially removed using the Leksell rongeur. Wide decompressive laminectomy was carried out using the Midas Tom drill, curettes and Kerrison rongeurs. Ligamentum flavum hypertrophy was encountered. This was then removed with a 3 mm Kerrison rongeur and this allowed for decompression of the thecal sac. Epidural fat and draining veins were cauterized with bipolar cautery. Thecal sac was retracted from left to right to expose the underlying disk. Disk annulus was incised with an 11 blade and disk material was removed using curettes and pituitary rongeurs. The endplates were decorticated. Local autograft and i-Factor were placed in the disk space.Local autograft and i- Factor placed into a 10 mm OPAL interbody cage. This was then placed on the left side and positioned diagonally across the disk space. Proper positioning was checked with fluoroscopic images. The wound was irrigated with bacitracin- containing solution. 6.5 x 45 mm screws were placed into L2. Each screw was then tested using evoked EMGs. There was no evidence of pedicle screwbreakout or nerve irritation. Sabas was then used to connect L2 to L3 screws. These were then tightened to the appropriate tension and torqued. The wound was irrigated with bacitracin-containing solution. AP and lateral fluoroscopic images were obtained which revealed adequate placement of the hardware. The wound was then soaked in 5% Betadine solution for 3 minutes. This was irrigated clear. Pain paste was placed over the dura. 1 g of vancomycin powder was placed in the wound. Medium Hemovac drain was placed. The wound was then closed using 0 Vicryl suture for the fascia, 2-0 Vicryl suture forthe dermis and Dermabond for the skin. The patient tolerated this procedure well. He was extubated at the end of procedure and transferred to postanesthesia recovery room in stable condition. All sponge and instrument counts were correct x2. Estimated Blood Loss 300 mL. Job ID/VF Job ID: [id number] CIATE PROFESSOR OF RADIOLOGY documented in this encounter Plan of Treatment Scheduled Orders Name Type Priority Associated Diagnoses Orde r Schedule Gross/Hardware Pathology and Cytology Routine Spinal stenosis, lumbar region, with neurogenic claudication Once (Routine) for 1 Occurrences starting 09/19/2019 documented as of this encounter Procedures Procedure Name Priority Date/Time Associated Diagnosis Comments POCT GLUCOSE DEVICE Routine 09/20/2019 1 1:54 AM ASSOCIATE PROFESSOR OF RADIOLOGY POCT GLUCOSE DEVICE Routine 09/20/2019 6 :31 AM ASSOCIATE PROFESSOR OF RADIOLOGY CBC WITHOUT DIFFERENTIAL Routine 09/20/2019 6:08 AM ASSOCIATE PROFESSOR OF RADIOLOGY POCT GLUCOSE DEVICE Routine 09/19/2019 8 :55 PM ASSOCIATE PROFESSOR OF RADIOLOGY POCT GLUCOSE DEVICE Routine 09/19/2019 4 :43 PM ASSOCIATE PROFESSOR OF RADIOLOGY POCT GLUCOSE DEVICE Routine 09/19/2019 1 2:47 PM ASSOCIATE PROFESSOR OF RADIOLOGY FL FLUOROSCOPY < 1 HOUR IP Routine 09/19/2019 11:20 AM ASSOCIATE PROFESSOR OF RADIOLOGY XR SPINE LUMBAR 2 OR 3 VIEWS IP Routine 09/19/2019 11:20 AM ASSOCIATE PROFESSOR OF RADIOLOGY SURGICAL PATHOLOGY Routine 09/19/2019 9: 46 AM ASSOCIATE PROFESSOR OF RADIOLOGY Spinal stenosis, lumbar region, with neurogenic claudication FUSION LAMINECTOMY LUMBAR - POSTERIOR 09/19/2019 8:29 AM ASSOCIATE PROFESSOR OF RADIOLOGY Spinal stenosis, lumbar region, with neurogenic claudication PREPARE RBC STAT 09/19/2019 7:35 AM ASSOCIATE PROFESSOR OF RADIOLOGY POCT GLUCOSE DEVICE Routine 09/19/2019 7 :01 AM ASSOCIATE PROFESSOR OF RADIOLOGY documented in this encounter Results * POCT glucose (09/20/2019 11:54 AM ASSOCIATE PROFESSOR OF RADIOLOGY) Glucose, POC 140 70 - 140 mg/dL [facility] Comment: For Glucose values <35 mg/dl when Hematocrit is >60 mg/dl,the test may not accurately detect significant hypoglycemia,and testing in the Laboratory should be considered if clinically indicated. Blood specimen (specimen) 09/20/2019 11:54 AM ASSOCIATE PROFESSOR OF RADIOLOGY 09/20/2019 11:54 AM ASSOCIATE PROFESSOR OF RADIOLOGY us Don Estrella MD LAB POCT ORDERABLES - DEV ICE Final Result [facility] [address] Department [place] [address] * POCT glucose (09/20/2019 6:31 AM ASSOCIATE PROFESSOR OF RADIOLOGY) Glucose, POC 123 70 - 140 mg/dL [facility] Comment: For Glucose values <35 mg/dl when Hematocrit is >60 mg/dl,the test may not accurately detect significant hypoglycemia,and testing in the Laboratory should be considered if clinically indicated. Blood specimen (specimen) 09/20/2019 6:31 AM ASSOCIATE PROFESSOR OF RADIOLOGY 09/20/2019 6:31 AM ASSOCIATE PROFESSOR OF RADIOLOGY us Don Estrella MD LAB POCT ORDERABLES - DEV ICE Final Result Performing Organization Address [facility]/ZIP Co de Phone Number [facility] [address] [employer] [place] [address] * (ABNORMAL) CBC without differential (09/20/2019 6:08 AM ASSOCIATE PROFESSOR OF RADIOLOGY) [facility] WBC 11.5(H) 3.8 - 9.9 K/cumm [facility] Hgb 11.0(L) 13.0 - 17.5 g/dL [facility] Hct 34.8(L) 38.9 - 50.3 % [facility] Plt 208 150 - 400 K/cumm [facility] MPV 10.6 9.1 - 12.3 fL [facility] RBC 3.88(L) 4.30 - 5.80 M/cumm [facility] MCV 89.7 81.3 - 96.4 fL [facility] MCH 28.4 27.1 - 33.3 pg [facility] MCHC 31.6(L) 32.3 - 35.7 g/dL [facility] RDW CV 13.2 11.1 - 14.9 % [facility] RDW SD 43.3 35.7 - 48.1 fL [facility] NRBC abs 0.00 0.00 - 0.01 K/cumm [facility] Blood specimen (specimen) 09/20/2019 6:08 AM ASSOCIATE PROFESSOR OF RADIOLOGY 09/20/2019 6:34 AM ASSOCIATE PROFESSOR OF RADIOLOGY Don Estrella MD LAB BLOOD ORDERABLES Erica l Result [facility] [address] Department [employer] [place], [place] [id number] * (ABNORMAL) POCT glucose (09/19/2019 8:55 PM ASSOCIATE PROFESSOR OF RADIOLOGY) Pathologist [facility] Glucose, POC 141(H) 70 - 140 mg/dL [facility] Comment: For Glucose values <35 mg/dl when Hematocrit is >60 mg/dl,the test may not accurately detect significant hypoglycemia,and testing in the Laboratory should be considered if clinically indicated. Blood specimen (specimen) 09/19/2019 8:55 PM ASSOCIATE PROFESSOR OF RADIOLOGY 09/19/2019 8:55 PM ASSOCIATE PROFESSOR OF RADIOLOGY us Don Estrella MD LAB POCT ORDERABLES - DEV ICE Final Result Performing Organization Address [facility]/[employer] Co de Phone Number [facility] [address] [facility] [email or web address] [address] * (ABNORMAL) POCT glucose (09/19/2019 4:43 PM ASSOCIATE PROFESSOR OF RADIOLOGY) Glucose, POC 249(H) 70 - 140 mg/dL [facility] Comment: For Glucose values <35 mg/dl when Hematocrit is >60 mg/dl,the test may not accurately detect significant hypoglycemia,and testing in the Laboratory should be considered if clinically indicated. Blood specimen (specimen) 09/19/2019 4:43 PM ASSOCIATE PROFESSOR OF RADIOLOGY 09/19/2019 4:43 PM ASSOCIATE PROFESSOR OF RADIOLOGY Don Estrella MD LAB POCT ORDERABLES - DEV ICE Final Result Performing Organization Address [facility] de Phone Number [facility] [address] [facility] [email or web address] [address] * (ABNORMAL) POCT glucose (09/19/2019 12:47 PM ASSOCIATE PROFESSOR OF RADIOLOGY) Glucose, POC 153(H) 70 - 140 mg/dL [facility] Comment: For Glucose values <35 mg/dl when Hematocrit is >60 mg/dl,the test may not accurately detect significant hypoglycemia,and testing in the Laboratory should be considered if clinically indicated. Blood specimen (specimen) 09/19/2019 12:47 PM ASSOCIATE PROFESSOR OF RADIOLOGY 09/19/2019 12:47 PM ASSOCIATE PROFESSOR OF RADIOLOGY us Don Estrella MD LAB POCT ORDERABLES - DEV ICE Final Result Performing Organization Address [facility] Co de Phone Number [facility] [address] [address] [facility] [email or web address] [address] * FL Fluoroscopy < 1 Hour (09/19/2019 11:20 AM ASSOCIATE PROFESSOR OF RADIOLOGY) Narrative RAD_[facility] - 09/19/2019 11:21 AM ASSOCIATE PROFESSOR OF RADIOLOGY The images from this study are not interpreted by Radiology. ??Please refer to the physician's procedure / OR operative note. Don Estrella MD IMG FLUOROSCOPY PROCEDURE S Final Result [facility] * XR Spine Lumbar 2 or 3 Views (09/19/2019 11:20 AM ASSOCIATE PROFESSOR OF RADIOLOGY) Anatomical Region Laterality Modality Spine N/A Computed Radiogr aphy 09/19/2019 1:24 PM ASSOCIATE PROFESSOR OF RADIOLOGY Impressions 09/19/2019 1:26 PM ASSOCIATE PROFESSOR OF RADIOLOGY 1. Intraoperative evaluation during posterior lumbar spinal fusion. Electronically signed by: Jazlyn Kelley M.D. Narrative 09/19/2019 1:26 PM ASSOCIATE PROFESSOR OF RADIOLOGY Examination: Lumbar spine 2 or 3 views. HISTORY: Low back pain. FINDINGS: 2 fluoroscopic images of the lumbar spine are obtained during lumbar spinal fusion. Pedicle screws are present at L2 and L3. Discectomy cage is present. Laparotomy sponge is present. Procedure Note Jazlyn Kelley MD PhD - 09/19/2019 Examination: Lumbar spine 2 or 3 views. HISTORY: Low back pain. FINDINGS: 2 fluoroscopic images of the lumbar spine are obtained during lumbar spinal fusion. Pedicle screws are present at L2 and L3. Discectomy cage is present. Laparotomy sponge is present. IMPRESSION: 1. Intraoperative evaluation during posterior lumbar spinal fusion. Electronically signed by: Jazlyn Kelley M.D. Don Estrella MD IMG XR PROCEDURES Final R esult * Surgical pathology (09/19/2019 9:46 AM ASSOCIATE PROFESSOR OF RADIOLOGY) Tissue (Disc, intervertebral) 09/19/2019 9:53 AM ASSOCIATE PROFESSOR OF RADIOLOGY Narrative PATHOLOGY [facility] - 09/20/2019 6:01 PM ASSOCIATE PROFESSOR OF RADIOLOGY [address] ??[address] Tele: ?? Janice Dixon MD - Brush Stainer ?? Kelechi Sarah - Electrical Prospecting Operator SURGICAL PATHOLOGY REPORT Patient Name: ??SIMONE MARCH Address: ??[address] [place], [place] [address] Gender: ??M : ??1940 (Age: 79) Service: ??Surgery Location: ??2415, ?? Hospital #: ??[id number] Patient Type: ?? Inpatient Accession #: ? [id number] Taken: ? 09/19/2019 Received ? 09/19/2019 Reported: ? 09/20/2019 Physician(s): ? Иван Valerio M.D. DIAGNOSIS: Foreign object, rods, removal: ? -Metallic rods (gross) Vertebral column, disc material, excision: ? -Fibrocartilaginous tissue, with nonspecific reactive type changes as/09/20/2019 16:11 Examining Pathologist: Clay Franklin M.D. Report Reviewed and Electronically Signed By ??Clay Franklin M.D. SPECIMEN TYPE: A: RODS B: DISC MATERIAL CLINICAL IMPRESSION AND HISTORY: Spinal stenosis, lumbar region with neurogenic claudication. GROSS DESCRIPTION: Received fresh in container A and labeled Simone Goodwinsic and rods are two intact silver metallic rods measuring 6.5 x 0.5 cm and 6.6 x 0.5 cm. ??There is no tissue attached to the rods. ??The specimen is gross examination only. Received in formalin in container B and labeled Simone Laytonrusic and disc material are multiple pink-izaguirre tissue fragments measuring 4.8 x 3.2 x 0.5 cm in aggregate. ??Drafter Geophysical sections are submitted in cassette B1. [facility]/09/19/2019 13:57 ? [facility] MICROSCOPIC DESCRIPTION: Microscopic examination supports the above captioned diagnosis. Clerical Data Follows A; [id number] B; [id number] REPORT IMAGES AND/OR SCANNED DOCUMENTS ONLY VIEWABLE IN PDF FORMAT The immunohistochemical test(s) cited in this report, if any, was developed and its performance characteristics determined by [facility] Pathology Department. ??It has not been cleared or approved by the U.S. Food and Drug Administration. ??The FDA has determined that such clearance or approval is not necessary. ??This test is used for clinical purposes. ??It should not be regarded as investigational or for research. ??[facility] is certified under the Clinical Laboratory Improvement Amendments of 1988 (CLIA) as qualified to perform high complexity testing. ??Immunostains were performed on formalin-fixed paraffin embedded tissue using a polymer diaminobenzidine chromogen detection system. Antibodies used may include clone SP1 (rabbit monoclonal, estrogen receptor), clone 1E2 (rabbit monoclonal progesterone receptor), Ki-67 (rabbit monoclonal, 30-9), and [id number] (rabbit polyclonal, c-kit). Don Estrella MD LAB PATHOLOGY ORDERABLES Final Result Performing Organization Address City/[facility]/ZIP Co de Phone Number PATHOLOGY [facility] Laboratory Receiving [address] [place] [place] [address] * Prepare RBC (09/19/2019 7:35 AM ASSOCIATE PROFESSOR OF RADIOLOGY) Product code [id number] [facility] Unit Number [id number] 1-N [facility] Product Blood Type APOS [facility] Dispense Status RETURNED [facility] Product code [id number] [facility] Unit [facility] [id number] 7-E [facility] Product Blood Type APOS [facility] Dispense Status RETURNED [facility] Blood specimen (specimen) 09/19/2019 7:35 AM ASSOCIATE PROFESSOR OF RADIOLOGY 09/19/2019 7:35 AM ASSOCIATE PROFESSOR OF RADIOLOGY Don Estrella MD BLOOD BANK PRODUCT ORDERA BLES Final Result Performing Organization Address City/[facility]/ZIP Co de Phone Number [facility] [address] Department [place] [address] * POCT glucose (09/19/2019 7:01 AM ASSOCIATE PROFESSOR OF RADIOLOGY) Glucose, POC 122 70 - 140 mg/dL [facility] Comment: For Glucose values <35 mg/dl when Hematocrit is >60 mg/dl,the test may not accurately detect significant hypoglycemia,and testing in the Laboratory should be considered if clinically indicated. Blood specimen (specimen) 09/19/2019 7:01 AM ASSOCIATE PROFESSOR OF RADIOLOGY 09/19/2019 7:01 AM ASSOCIATE PROFESSOR OF RADIOLOGY us Don Estrella MD LAB POCT ORDERABLES - DEV ICE Final Result [facility] [address] Department [place] [address] documented in this encounter Visit Diagnoses Diagnosis Spinal stenosis, lumbar region, with neurogenic claudication Spinal stenosis, lumbar region, with neurogenic claudication documented in this encounter Administered Medications Inactive Administered Medications - up to 3 most recent administrations Medication Order MAR Action Action Date Dose Rate Site acetaminophen (TYLENOL) tablet 1,000 mg 1,000 mg, oral, Every 6 hours scheduled, First dose on Thu09/19/19 at 1500, Indications: PainIndications:Pain Given 09/20/2019 8:26 AM ASSOCIATE PROFESSOR OF RADIOLOGY 1,000 mg Given 09/20/2019 1:58 AM ASSOCIATE PROFESSOR OF RADIOLOGY 1,000 mg Given 09/19/2019 8:47 PM ASSOCIATE PROFESSOR OF RADIOLOGY 1,000 mg bacitracin 50,000 Units in sodium chloride 0.9% 800 mL solution As needed, Starting on Thu09/19/19 at 0907, Intra-Op Given 09/19/2019 9:07 AM ASSOCIATE PROFESSOR OF RADIOLOGY 800 mL Surgical Site baclofen (LIORESAL) tablet 10 mg 10 mg, oral, Every 8 hours scheduled, First dose on Thu09/19/19 at 1430, Indications: Muscle spasmIndications:Muscle spasm Given 09/20/2019 1:03 PM ASSOCIATE PROFESSOR OF RADIOLOGY 10 mg Given 09/20/2019 6:32 AM ASSOCIATE PROFESSOR OF RADIOLOGY 10 mg Given 09/19/2019 8:47 PM ASSOCIATE PROFESSOR OF RADIOLOGY 10 mg bupivacaine-EPINEPHrine (MARCAINE with EPI) 0.5 %-1:200,000 preservative free injection As needed, Starting on Thu09/19/19 at 0907, Intra-Op Given 09/19/2019 9:07 AM ASSOCIATE PROFESSOR OF RADIOLOGY 10 mL Surgical Site dexAMETHasone (DECADRON) 4 mg/mL injection Administer over 2 Minutes, As needed, Starting on Thu09/19/19 at 1128, Intra-Op Given 09/19/2019 11:28 AM ASSOCIATE PROFESSOR OF RADIOLOGY 10 mg Surgical Site dextrose (D10W) 10% bolus 250 mL 250 mL, intravenous, at 1,000 mL/hr, Administer over 15 Minutes, Every 15 min PRN, blood glucose less than 70 mg/dL and UNABLE to swallow/take PO glucose/juice., Starting on Thu09/19/19 at 1359, After treatment for hypoglycemia, recheck BG followed by treatment every 15 minutes until the BG is greater than 100 mg/dL. Then check BG 1 hour post treatment. If BG is less than 100 mg/dL, repeat Q15 minute BG checks and treatment. Call MD for each episode of hypoglycemia., Indications: hypoglycemic disorderIndications:hypoglycemic disorder dextrose (GLUTOSE) 40 % gel 15 g 15 g, oral, Every 15 min PRN, low blood sugar, blood glucose less than 70 mg/dL, Starting on Thu09/19/19 at 1359, If patient is alert and able to eat/drink, give 15 gm glucose or one juice (4 fluid ounces) NOT ORANGE JUICE. After treatment for hypoglycemia, recheck BG followed by treatment every 15 minutes until the BG is greater than 100 mg/dL. Then check BG 1 hour post-treatment. If BG is less than 100 mg/dL, repeat Q15 minute BG checks and treatment. Call MD for each episode of hypoglycemia. FAMILY HELPER STATES GLUTOSE-15 CONTAINS GLUCOSE 40% W/W (50% W/V), Indications: hypoglycemic disorderIndications:hypoglycemic disorder docusate sodium (COLACE) capsule 100 mg 100 mg, oral, 2 times daily, First dose on Thu09/19/19 at 1430, Hold for diarrhea, Indications: constipationIndications:constipat ion Given 09/20/2019 8:26 AM ASSOCIATE PROFESSOR OF RADIOLOGY 100 mg Given 09/19/2019 8:48 PM ASSOCIATE PROFESSOR OF RADIOLOGY [address] (CYMBALTA) extended release capsule 60 mg 60 mg, oral, Daily, First dose on Thu09/20/19 at 0900, Capsule may be opened and contents mixed with applesauce or apple juice ONLY. Do not crush, chew, cut, dissolve, open or otherwise manipulate tablet/capsule. Given 09/20/2019 8:26 AM ASSOCIATE PROFESSOR OF RADIOLOGY 60 mg glucagon injection 1 mg 1 mg, intramuscular, Administer over 1 Minutes, Every 30 min PRN, low blood sugar, blood glucose less than 70 mg/dL AND no IV access AND unable to take PO glucose/jiuce., Starting on Thu09/19/19 at 1359, After Glucagon is administered, position patient on side if possible to avoid aspiration. Obtain IV access. Follow glucagon treatment with glucose treatment or IV dextrose. After treatment for hypoglycemia, recheck BG followed by treatment every 15 minutes until the BG is greater than 100 mg/dL. Then check BG 1 hour post treatment. If BG is less than 100 mg/dL, repeat Q15 minute BG checks and treatment. Call MD for each episode of hypoglycemia., Indications: HypoglycemiaIndications:Hypog lycemia insulin lispro (HumaLOG) injection 1-2 Units 1-2 Units, subcutaneous, Nightly, First dose on Thu09/19/19 at 2100, Blood Sugar Low Dose PM - PO patients 200 or less No Insulin 201 - 250 1 unit 251 - 299 2 units Greater than 299 Call MD for hyperglycemia management instructions Do NOT hold for NPO status., Indications: Diabetes MellitusIndications:Diabetes Mellitus insulin lispro (HumaLOG) injection 1-3 Units 1-3 Units, subcutaneous, 3 times daily with meals, First dose on Thu09/19/19 at 1800, Blood Sugar Low Dose meal time - PO patients 175 or less No Insulin 176 - 200 1 unit 201 - 250 2 units 251 - 299 3 units Greater than 299 Call MD for hyperglycemia management instructions Do NOT hold for NPO status., Indications: Diabetes MellitusIndications:Diabetes Mellitus Given 09/19/2019 4:45 PM ASSOCIATE PROFESSOR OF RADIOLOGY 2 Units Right Lower Abdomen Lactated Ringer's (LR) infusion 30 mL/hr, intravenous, Continuous, Starting on Thu09/19/19 at 0715 New Bag 09/19/2019 9:54 AM ASSOCIATE PROFESSOR OF RADIOLOGY New Bag 09/19/2019 7:28 AM ASSOCIATE PROFESSOR OF RADIOLOGY 30 mL/hr 30 mL/hr lisinopril (PRINIVIL,ZESTRIL) tablet 40 mg 40 mg, oral, Daily, First dose on Thu09/20/19 at 0900 Given 09/20/2019 8:26 AM ASSOCIATE PROFESSOR OF RADIOLOGY 40 mg LORazepam (ATIVAN) injection 0.5 mg 0.5 mg, intravenous, Every 6 hours PRN, anxiety, Starting on Thu09/19/19 at 1345, For IV administration, dilute with equal volume of 0.9% sodium chloride. Do not exceed a rate of 2 mg/minute Given 09/19/2019 10:18 PM ASSOCIATE PROFESSOR OF RADIOLOGY 0.5 mg metFORMIN (GLUCOPHAGE) tablet 2,000 mg 2,000 mg, oral, Daily with dinner, First dose on Thu09/19/19 at 1800, Take with food Given 09/19/2019 4:45 PM ASSOCIATE PROFESSOR OF RADIOLOGY 2,000 mg microfibrillar collagen (AVITENE) powder As needed, Starting on Thu09/19/19 at 1127, Intra-Op, Indications: Bleeding from WoundIndications:Bleeding from Wound Given 09/19/2019 11:27 AM ASSOCIATE PROFESSOR OF RADIOLOGY 1 g Surgical Site morphine preservative free injection Administer over 4 Minutes, As needed, Starting on Thu09/19/19 at 1127, Intra-Op Given 09/19/2019 11:27 AM ASSOCIATE PROFESSOR OF RADIOLOGY 4 mg Surgical Site oxyCODONE (ROXICODONE) tablet 5 mg 5 mg, oral, Every 4 hours PRN, 1st line for pain, Starting on Thu09/19/19 at 1352, Indications: PainIndications:Pain Given 09/20/2019 1:03 PM ASSOCIATE PROFESSOR OF RADIOLOGY 5 mg Given 09/20/2019 8:27 AM ASSOCIATE PROFESSOR OF RADIOLOGY 5 mg Given 09/20/2019 2:01 AM ASSOCIATE PROFESSOR OF RADIOLOGY 5 mg povidone-iodine (BETADINE PREP) 5 % ophthalmic solution As needed, Starting on Thu09/19/19 at 1127, Intra-Op Given 09/19/2019 11:27 AM ASSOCIATE PROFESSOR OF RADIOLOGY 60 mL Surgical Site simvastatin (ZOCOR) tablet 40 mg 40 mg, oral, Nightly, First dose on Thu09/19/19 at 2100 Given 09/19/2019 8:48 PM ASSOCIATE PROFESSOR OF RADIOLOGY 40 mg sodium chloride 0.9 % irrigation As needed, Starting on Thu09/19/19 at 0907, Intra-Op Given 09/19/2019 9:07 AM ASSOCIATE PROFESSOR OF RADIOLOGY 200 mL Surgical Site sodium chloride 0.9% infusion 100 mL/hr, intravenous, Continuous, Starting on Thu09/19/19 at 1430, Phase I & Post-op Floor, Dc if po intake >800cc New Bag 09/19/2019 10:01 PM ASSOCIATE PROFESSOR OF RADIOLOGY 100 mL/hr 100 mL/hr New Bag 09/19/2019 1:46 PM ASSOCIATE PROFESSOR OF RADIOLOGY 100 mL/hr 100 mL/hr vancomycin (VANCOCIN) solution As needed, Starting on Thu09/19/19 at 1129, Intra-Op Given 09/19/2019 11:29 AM ASSOCIATE PROFESSOR OF RADIOLOGY 1,000 mg Surgical Site documented in this encounter Discontinued Medications Medication Sig Discontinue Reason Start Date End Da te aspirin 81 mg enteric coated tablet Take 81 mg by mouth daily with dinner Reorder 09/20/2019 HYDROcodone-acetaminop hen (NORCO) 5-325 mg per tabletIndications:Pain Take 1 tablet by mouth every 6 (six) hours as needed Stop Taking at Discharge 09/20/2019 documented as of this encounter Active and Recently Administered Medications Times are shown in ASSOCIATE PROFESSOR OF RADIOLOGY. Scheduled Medication Order 09/18/2019 09/19/2019 09/20/2019 acetaminophen (TYLENOL) tablet 1,000 mg (COMPLETED) 1,000 mg, oral, Once, On Thu09/19/19 at 0715, For 1 dose, Pre-Op, Indications: Pre-Emptive Analgesia 0728 (Given - Provider: Suzy Puente RN) acetaminophen (TYLENOL) tablet 1,000 mg 1,000 mg, oral, Every 6 hours scheduled, First dose on Thu09/19/19 at 1500, Indications: Pain 1645 (Given - Provider: Megan Muir RN)2047 (Given - Provider: Yessica Purcell RN) 0158 (Given - Provider: Yessica Purcell RN)0826 (Given - Provider: Keila Oconnor, ZINA) baclofen (LIORESAL) tablet 10 mg 10 mg, oral, Every 8 hours scheduled, First dose on Thu09/19/19 at 1430, Indications: Muscle spasm 1549 (Not Given - Provider: Megan Muir RN - Reason: Other - Comment: not tolerating regular diet yet)204 (Given - Provider: Yessica Purcell RN) 0632 (Given - Provider: Yessica Purcell RN)1303 (Given - Provider: Keila Oconnor, ZINA) docusate sodium (COLACE) capsule 100 mg 100 mg, oral, 2 times daily, First dose on Thu09/19/19 at 1430, Hold for diarrhea, Indications: constipation 1439 (Not Given - Provider: Megan Muir RN - Reason: Other - Comment: not tolerating regular diet yet)2047 (Given - Provider: Yessica Purcell, ZINA) 0826 (Given - Provider: Keila Oconnor, ZINA) DULoxetine DR (CYMBALTA) extended release capsule 60 mg 60 mg, oral, Daily, First dose on Thu09/20/19 at 0900, Capsule may be opened and contents mixed with applesauce or apple juice ONLY. Do not crush, chew, cut, dissolve, open or otherwise manipulate tablet/capsule. 0826 (Given - Provid er: Keila Oconnor, ZINA) gabapentin (NEURONTIN) capsule 200 mg (COMPLETED) 200 mg, oral, Once, On Thu09/19/19 at 0715, For 1 dose, Pre-Op, Indications: Pre-Emptive Analgesia 727 (Given - Provider: Suzy Puente, ZINA) insulin lispro (HumaLOG) injection 1-2 Units 1-2 Units, subcutaneous, Nightly, First dose on Thu09/19/19 at 2100, Blood Sugar Low Dose PM - PO patients 200 or less No Insulin 201 - 250 1 unit 251 - 299 2 units Greater than 299 Call MD for hyperglycemia management instructions Do NOT hold for NPO status., Indications: Diabetes Mellitus 2054 (Not Given - Provider: Yessica Purcell RN - Reason: Order parameters not met) insulin lispro (HumaLOG) injection 1-3 Units 1-3 Units, subcutaneous, 3 times daily with meals, First dose on Thu09/19/19 at 1800, Blood Sugar Low Dose meal time - PO patients 175 or less No Insulin 176 - 200 1 unit 201 - 250 2 units 251 - 299 3 units Greater than 299 Call MD for hyperglycemia management instructions Do NOT hold for NPO status., Indications: Diabetes Mellitus 1645 (Given - Provider: Megan Muir RN - Comment: for blood sugar 249) 0633 (Not Given - Provider: Yessica Purcell RN - Reason: Order parameters not met)1200 (Not Given - Provider: Keila Oconnor, ZINA - Reason: Order parameters not met) lisinopril (PRINIVIL,ZESTRIL) tablet 40 mg 40 mg, oral, Daily, First dose on Thu09/20/19 at 0900 0826 (Given - Provid er: Keila Oconnor RN) metFORMIN (GLUCOPHAGE) tablet 2,000 mg 2,000 mg, oral, Daily with dinner, First dose on Thu09/19/19 at 1800, Take with food 1645 (Given - Provider: Megan Muir RN) simvastatin (ZOCOR) tablet 40 mg 40 mg, oral, Nightly, First dose on Thu09/19/19 at 2100 2048 (Given - Provider: Yessica Purcell, ZINA) vancomycin 1,000 mg/200 mL in dextrose 5% (premix) 1,000 mg (COMPLETED) 1,000 mg, intravenous, Administer over 60 Minutes, Once, On Thu09/19/19 at 1900, For 1 dose, Administer 12 hours after last pre-operative dose., Indications: Prophylaxis, Surgical 2046 (New Bag - Provider: Yessica Purcell RN) vancomycin 1500 mg/250 mL in sodium chloride 0.9% (premix) 1,500 mg (COMPLETED) 1,500 mg, intravenous, Administer over 90 Minutes, Once, On Thu09/19/19 at 0715, For 1 dose, Pre-Op, Administer within 120 minutes of incision., Indications: Prophylaxis, Surgical 0735 (New Bag - Provider: Suzy Puenet RN) Continuous Medication Order 09/18/2019 09/19/2019 09/20/2019 Lactated Ringer's (LR) infusion 30 mL/hr, intravenous, Continuous, Starting on Thu09/19/19 at 0715 0728 (New Bag - Provider: Suzy Puente RN)0954 (New Bag - Provider: Eden Tang CRNA)1147 (Anesthesia Volume Adjustment - Provider: Eden Tang CRNA) 0700 (Stopped - Provider: Keila Oconnor RN - Comment: done yesterday in PACU) sodium chloride 0.9% infusion 100 mL/hr, intravenous, Continuous, Starting on Thu09/19/19 at 1430, Phase I & Post-op Floor, Dc if po intake >800cc 1346 (New Bag - Provider: Megan Muir RN)2201 (New Bag - Provider: Yessica Purcell, ZINA) 0956 (Stopped - Provider: Keila Oconnor RN - Comment: voided 450 ml) PRN Medication Order 09/18/2019 09/19/2019 09/20/2019 bacitracin 50,000 Units in sodium chloride 0.9% 800 mL solution (CANCELED) As needed, Starting on Thu09/19/19 at 0907, Intra-Op 0907 (Given - Provider: Don Estrella MD - Comment: PRN on sterile field) bupivacaine-EPINEPHrine (MARCAINE with EPI) 0.5 %-1:200,000 preservative free injection (CANCELED) As needed, Starting on Thu09/19/19 at 0907, Intra-Op 0907 (Given - Provider: Don Estrella MD - Comment: local injection) dexAMETHasone (DECADRON) 4 mg/mL injection (CANCELED) Administer over 2 Minutes, As needed, Starting on Thu09/19/19 at 1128, Intra-Op 1128 (Given - Provider: Don Estrella MD - Comment: Pain paste) dextrose (D10W) 10% bolus 250 mL(Linked Group 1) 250 mL, intravenous, at 1,000 mL/hr, Administer over 15 Minutes, Every 15 min PRN, blood glucose less than 70 mg/dL and UNABLE to swallow/take PO glucose/juice., Starting on Thu09/19/19 at 1359, After treatment for hypoglycemia, recheck BG followed by treatment every 15 minutes until the BG is greater than 100 mg/dL. Then check BG 1 hour post treatment. If BG is less than 100 mg/dL, repeat Q15 minute BG checks and treatment. Call MD for each episode of hypoglycemia., Indications: hypoglycemic disorder dextrose (GLUTOSE) 40 % gel 15 g(Linked Group 1) 15 g, oral, Every 15 min PRN, low blood sugar, blood glucose less than 70 mg/dL, Starting on Thu09/19/19 at 1359, If patient is alert and able to eat/drink, give 15 gm glucose or one juice (4 fluid ounces) NOT ORANGE JUICE. After treatment for hypoglycemia, recheck BG followed by treatment every 15 minutes until the BG is greater than 100 mg/dL. Then check BG 1 hour post-treatment. If BG is less than 100 mg/dL, repeat Q15 minute BG checks and treatment. Call MD for each episode of hypoglycemia. FAMILY HELPER STATES GLUTOSE-15 CONTAINS GLUCOSE 40% W/W (50% W/V), Indications: hypoglycemic disorder glucagon injection 1 mg 1 mg, intramuscular, Administer over 1 Minutes, Every 30 min PRN, low blood sugar, blood glucose less than 70 mg/dL AND no IV access AND unable to take PO glucose/jiuce., Starting on Thu09/19/19 at 1359, After Glucagon is administered, position patient on side if possible to avoid aspiration. Obtain IV access. Follow glucagon treatment with glucose treatment or IV dextrose. After treatment for hypoglycemia, recheck BG followed by treatment every 15 minutes until the BG is greater than 100 mg/dL. Then check BG 1 hour post treatment. If BG is less than 100 mg/dL, repeat Q15 minute BG checks and treatment. Call MD for each episode of hypoglycemia., Indications: Hypoglycemia insulin lispro (HumaLOG) injection 1-5 Units (COMPLETED) 1-5 Units, subcutaneous, Once as needed, high blood sugar, Starting on Thu09/19/19 at 1235, For 1 dose, Phase I, Blood Sugar Mid Dose - Surgical/Post-Op ICU 139 or less No insulin 140 - 175 1 unit 176 - 200 2 unit 201 - 250 3 units 251 - 299 5 units Greater than 299 Call MD for hyperglycemia management instructions Do NOT hold for NPO status., Indications: Diabetes Mellitus 1249 (Given - Provider: Suma Montero RN) LORazepam (ATIVAN) injection 0.5 mg 0.5 mg, intravenous, Every 6 hours PRN, anxiety, Starting on Thu09/19/19 at 1345, For IV administration, dilute with equal volume of 0.9% sodium chloride. Do not exceed a rate of 2 mg/minute 2218 (Given - Provider: Yessica Purcell, ZINA) microfibrillar collagen (AVITENE) powder (CANCELED) As needed, Starting on Thu09/19/19 at 1127, Intra-Op, Indications: Bleeding from Wound 1127 (Given - Provider: Don Estrella MD - Comment: Pain paste) morphine preservative free injection (CANCELED) Administer over 4 Minutes, As needed, Starting on Thu09/19/19 at 1127, Intra-Op 1127 (Given - Provider: Don Estrella MD - Comment: Pain paste) oxyCODONE (ROXICODONE) tablet 5 mg 5 mg, oral, Every 4 hours PRN, 1st line for pain, Starting on Thu09/19/19 at 1352, Indications: Pain 1826 (Given - Provider: Megan Muir RN) 0201 (Given - Provider: Yessica Purcell, ZINA)0827 (Given - Provider: Keila Oconnor, RN)1303 (Given - Provider: Keila Oconnor, RN) povidone-iodine (BETADINE PREP) 5 % ophthalmic solution (CANCELED) As needed, Starting on Thu09/19/19 at 1127, Intra-Op 1127 (Given - Provider: Don Estrella MD) promethazine (PHENERGAN) tablet 25 mg 25 mg, oral, Every 6 hours PRN, nausea, vomiting, Starting on Thu09/19/19 at 1345, Indications: Nausea and Vomiting sodium chloride 0.9 % irrigation (CANCELED) As needed, Starting on Thu09/19/19 at 0907, Intra-Op 0907 (Given - Provider: Don Estrella MD - Comment: PRN on sterile field) vancomycin (VANCOCIN) solution (CANCELED) As needed, Starting on Thu09/19/19 at 1129, Intra-Op 1129 (Given - Provider: Don Estrella MD) Linked Groups Order Group 1: dextrose (GLUTOSE) 40 % gel 15 gJump to med 15 g, oral, Every 15 min PRN, low blood sugar, blood glucose less than 70 mg/dL, Starting on Thu09/19/19 at 1359, If patient is alert and able to eat/drink, give 15 gm glucose or one juice (4 fluid ounces) NOT ORANGE JUICE. After treatment for hypoglycemia, recheck BG followed by treatment every 15 minutes until the BG is greater than 100 mg/dL. Then check BG 1 hour post-treatment. If BG is less than 100 mg/dL, repeat Q15 minute BG checks and treatment. Call MD for each episode of hypoglycemia. FAMILY HELPER STATES GLUTOSE-15 CONTAINS GLUCOSE 40% W/W (50% W/V), Indications: hypoglycemic disorder Or dextrose (D10W) 10% bolus 250 mLJump to med 250 mL, intravenous, at 1,000 mL/hr, Administer over 15 Minutes, Every 15 min PRN, blood glucose less than 70 mg/dL and UNABLE to swallow/take PO glucose/juice., Starting on Thu09/19/19 at 1359, After treatment for hypoglycemia, recheck BG followed by treatment every 15 minutes until the BG is greater than 100 mg/dL. Then check BG 1 hour post treatment. If BG is less than 100 mg/dL, repeat Q15 minute BG checks and treatment. Call MD for each episode of hypoglycemia., Indications: hypoglycemic disorder documented in this encounter Orders Medications Ordered That Ervin ht Not Have Been Administered Count Last Ordered Date First Ordered Date acetaminophen (TYLENOL) tablet 1,000 mg 2 0 09/19/2019 albuterol 2.5 mg /3 mL (0.08 3 %) nebulizer solution 2.5 mg 1 09/19/2019 baclofen (LIORESAL) tablet 10 mg 09/19/19 dextrose (D10W) 10% bolus 250 mL 09/19/19 dextrose (GLUTOSE) 40 % gel 15 g 09/19/19 diphenhydrAMINE (BENADRYL) i njection 12.5 mg 09/19/2019 docusate sodium (COLACE) capsule 100 mg 1 0 09/19/[address] (CYMBALTA) ext ended release capsule 60 mg 09/19/2019 empagliflozin (JARDIANCE) tablet 25 mg fentaNYL (SUBLIMAZE) preserv ative free injection 25 mcg 09/19/2019 gabapentin (NEURONTIN) capsule 200 mg glucagon injection 1 mg 1 09/19/2019 haloperidol (HALDOL) injection 1 mg 09/19 hydrALAZINE (APRESOLINE) injection 5 mg 1 0 09/19/2019 HYDROmorphone (DILAUDID) injection 0.2 mg 1 09/19/2019 HYDROmorphone (DILAUDID) injection 0.4 mg 1 09/19/2019 insulin lispro (HumaLOG) inj ection 1-2 Units 1 09/19/2019 insulin lispro (HumaLOG) inj ection 1-3 Units 1 09/19/2019 insulin lispro (HumaLOG) inj ection 1-5 Units 09/19/2019 labetalol (NORMODYNE,TRANDAT E) injection 5 mg 1 09/19/2019 Lactated Ringer's (LR) infusion 1 0 lidocaine in dextrose 5% 2 g /250 mL (8 mg/mL) infusion (premix) 1 09/19/2019 lidocaine PF (XYLOCAINE) 10 mg/mL (1 %) preservative free injection 2-10 mg 1 09/19/2019 lisinopril (PRINIVIL,ZESTRIL) tablet 40 mg 1 09/19/2019 LORazepam (ATIVAN) injection 0.5 mg 1 09/19 meperidine (DEMEROL) preserv ative free injection 12.5 mg 1 09/19/2019 metFORMIN (GLUCOPHAGE) tablet 2,000 mg 1 naloxone (NARCAN) 0.4 mg/mL injection 0.04-0.4 mg 1 09/19/2019 ondansetron (ZOFRAN) injection 4 mg 1 09/19 oxyCODONE (ROXICODONE) tablet 5 mg 3 2019 promethazine (PHENERGAN) tablet 25 mg 1 racepinephrine (ASTHMANEFRIN ) 2.25 % nebulizer solution 0.5 mL 1 09/19/2019 simvastatin (ZOCOR) tablet 40 mg 1 09/19/19 sodium chloride 0.9% flush 0.5-20 mL 1 09/07 sodium chloride 0.9% infusion 1 09/19/2019 vancomycin 1,000 mg/200 mL i n dextrose 5% (premix) 1,000 mg 1 09/19/2019 vancomycin 1500 mg/250 mL in sodium chloride 0.9% (premix) 1,500 mg 09/19/2019 Lab Orders Without Results Count Last Ordered D ate First Ordered Date POCT GLUCOSE DEVICE 4 09/20/2019 09/19/19 20 Nursing Count Last Ordered Date First Orde red Date DISCHARGE INSTRUCTIONS 09/20/2019 STRAIGHT CATH 1 09/19/2019 CORE MEASURES Count Last Ordered Date First Ord ered Date REASON FOR NO VTE PROPHYLAXI S - HOSPITAL ADMISSION - MEDICATIONS 1 09/19/2019 documented in this encounter Care Teams Software Maintenance Engineer Relationship Specialty Start Date End Date Beck Benites MD [address] [id number] PCP - General 11/06/16 documented as of this encounter
--- OUTSIDE RECORDS SUMMARY | 2024-08-25 17:02 | XMS_ITS | Encounter Summary ---
Author Organization [facility] Healthcare Address [address] [place] [address] Care Team Providers Care Senior Project Manager Name Role Phone Beck Benites MD Primary Care Provider [phone] Encounter Details Date Type Department Care Team (Latest Contact Info) Description 11/06/2016 8:19 AM CROSSBAR FRAME WIRER - 11/06/2016 11:59 PM CROSSBAR FRAME WIRER Hospital Encounter [facility] [phone] Jose M Bruce MD [address] [place] [address] Discharge Disposition: Discharge to home or self care Social History Tobacco Use Types Packs/Day Years Used Date Smoking Tobacco: Never Sex and Gender Information Value Date Recorded Sex Assigned at Not on file Legal Sex Male 4:01 AM CROSSBAR FRAME WIRER Gender Identity Not on file Sexual Orientation Not on file documented as of this encounter Discharge Disposition Disposition Code Departure Means Destination Discharge to home or self care documented in this encounter Plan of Treatment Not on file documented as of this encounter Visit Diagnoses Not on filedocumented in this encounter Care Teams Senior Project Manager Relationship Specialty Start Date End Date Beck Benites MD [address] [address] PCP - General 11/06/16 documented as of this encounter
--- OUTSIDE RECORDS SUMMARY | 2024-08-25 17:02 | XMS_ITS | Encounter Summary ---
Author Organization [facility] Care Team Providers Care Sports Activities Foul Judge Name Role Phone Unavailable Primary Care Provider Unavailabl e Encounter Details Date Type Department Care Team (Latest Contact Info) Description 09/16/2016 8:35 AM STONE SANDBLASTER - 09/16/2016 11:59 PM STONE SANDBLASTER Hospital Encounter [facility] Jose M Bruce MD [address] [place] [address] Other chronic pain; Sacroiliitis, not elsewhere classified (CMS/HCC); Postlaminectomy syndrome, not elsewhere classified; retirement current use of oral hypoglycemic drug; retirement current use of aspirin; Other intermediate (current) drug therapy; Type 2 diabetes mellitus without complications (CMS/HCC); Essential (primary) hypertension; Pure hypercholesterolemia; Arthrodesis status Social History Tobacco Use Types Packs/Day Years Used Date Smoking Tobacco: Never Sex and Gender Information Value Date Recorded Sex Assigned at Not on file Legal Sex Male 4:01 AM STONE SANDBLASTER Gender Identity Not on file Sexual Orientation Not on file documented as of this encounter Plan of Treatment Not on file documented as of this encounter Visit Diagnoses Diagnosis Other chronic pain Sacroiliitis, not elsewhere classified (HCC) Sacroiliitis, not elsewhere classified Postlaminectomy syndrome, not elsewhere classified terminal gauger current use of oral hypoglycemic drug terminal gauger current use of aspirin Other terminal gauger (current) drug therapy Type 2 diabetes mellitus without complications (CMS/HCC) (HCC) Essential (primary) hypertension Unspecified essential hypertension Pure hypercholesterolemia Arthrodesis status documented in this encounter
--- OUTSIDE RECORDS SUMMARY | 2024-08-25 17:02 | XMS_ITS | Encounter Summary ---
Author Organization [facility] Healthcare Address [address] [place] [address] Care Team Providers Care Locomotive Driver Name Role Phone Beck Beniets MD Primary Care Provider [phone] Encounter Details Date Type Department Care Team (Latest Contact Info) Description 12/08/2016 7:26 AM CDT - 12/08/2016 11:59 PM CDT Hospital Encounter [facility] [phone] Jose M Bruce MD [address] [place] [address] Discharge Disposition: Discharge to home or self care Social History Tobacco Use Types Packs/Day Years Used Date Smoking Tobacco: Never Sex and Gender Information Value Date Recorded Sex Assigned at Not on file Legal Sex Male 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
--- OUTSIDE RECORDS SUMMARY | 2024-08-25 17:02 | XMS_ITS | Encounter Summary ---
Author Organization [facility] Healthcare Address [address] [place] [address] Care Team Providers Care Biztalk Administrator Name Role Phone Beck Benites MD Primary Care Provider [phone] Encounter Details Date Type Department Care Team (Latest Contact Info) Description 09/19/2019 6:15 AM DAIRY POWDER MIXER OPERATOR - 09/20/2019 1:27 PM DAIRY POWDER MIXER OPERATOR Hospital Encounter [facility] [address] [place] [address] SameerDon MD [address] [facility] [address] [place] [address] Spinal stenosis, lumbar region, with neurogenic claudication Discharge Disposition: Discharge to home, home health skilled care Social History Tobacco Use Types Packs/Day Years Used Date Smoking Tobacco: Former Cigarettes 0.1 8 1 - 09/05/1995 Smokeless Tobacco: Never Alcohol Use Standard Drinks/Week Comments Yes 2 (1 standard drink = 0.6 oz pur e alcohol) occassionally Sex and Gender Information Value Date Recorded Sex Assigned at Not on file Legal Sex Male 4:01 AM DAIRY POWDER MIXER OPERATOR Gender Identity Not on file Sexual Orientation Not on file documented as of this encounter Last Filed Vital Signs Vital Sign Reading Time Taken Comments Blood Pressure 112/49 09/20/2019 12:40 PM DAIRY POWDER MIXER OPERATOR Pulse 79 09/20/2019 12:40 PM DAIRY POWDER MIXER OPERATOR Temperature 36.4 ??C (97.6 ??F) 09/20/2019 12:[address] Respiratory Rate 14 09/20/2019 12:40 PM DAIRY POWDER MIXER OPERATOR Oxygen Saturation 96% 09/20/2019 12:40 PM DAIRY POWDER MIXER OPERATOR Inhaled Oxygen Concentration - - Weight 92 kg (202 lb 13.2 oz) 09/19/2019 7:16 AM DAIRY POWDER MIXER OPERATOR Height 175.3 cm (5' 9 ) 09/19/2019 7:16 AM DAIRY POWDER MIXER OPERATOR Body Mass Index 29.95 09/19/2019 7:16 AM DAIRY POWDER MIXER OPERATOR documented in this encounter Discharge Diagnoses Diagnosis Spinal stenosis, lumbar region with neurogenic claudication - SPINAL STENOSIS, LUMBAR REGION WITH NEUROGENIC CLAUDICATION Type 2 diabetes mellitus without complications (CMS/HCC) (HCC) - TYPE 2 DIABETES MELLITUS WITHOUT COMPLICATIONS Pure hypercholesterolemia, unspecified - PURE HYPERCHOLESTEROLEMIA, UNSPECIFIED Hyperlipidemia, unspecified - HYPERLIPIDEMIA, UNSPECIFIED Sleep apnea, unspecified - SLEEP APNEA, UNSPECIFIED Essential (primary) hypertension - ESSENTIAL (PRIMARY) HYPERTENSION Unspecified essential hypertension Personal history of malignant neoplasm of prostate - PERSONAL HISTORY OF MALIGNANT NEOPLASM OF PROSTATE intermediate (current) use of oral hypoglycemic drugs - SKILLED NURSING (CURRENT) USE OF ORAL HYPOGLYCEMIC DRUGS 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 (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) use of aspirin - SKILLED NURSING (CURRENT) USE OF ASPIRIN 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 Secondary Discharge Diagnosis: Past Medical History: Diagnosis Date ??? Diabetes (CMS/HCC) ??? Hearing loss Hearing aid ??? HTN (hypertension) ??? Hyperlipidemia ??? Prostate cancer (CMS/HCC) ??? Sleep apnea ??? Spinal stenosis Past Surgical History: Procedure Laterality Date ??? [place] ARTHRODESIS ANT INTERBODY MIN DISCECTOMY,LUMBAR Lumbar Vertebral [...] Pain and impaired mobility post-op Special Instructions [facility] Dr. Don Estrella MD, FACS [address] [place] [address] Email: [email or web address] DISCHARGE INSTRUCTIONS INCISION * [...] concerns? Call the office Home Health Agency: [facility] / [place] office Contact number: [phone] Services: PHYSICAL THERAPY [email or web address] company will be contacting you to set [...] Specialty: Family Medicine Relationship: PCP - General [address] [place] [address] Next Steps: Follow up Jolene Lal PA-C [facility] [phone] Y POWDER MIXER OPERATOR documented in this encounter Discharge Instructions * Discharge Instr - Other Orders* Vero Perez RN - 09/20/2019 12:02 PM DAIRY POWDER MIXER OPERATOR Home Health Agency: [facility] / [place] office Contact number: [phone] Services: PHYSICAL THERAPY The home health company will be contacting you to set up a start of care date. If you have any questions, please contact the number above. Thank you! Y POWDER MIXER OPERATOR * Attachments The following attachments cannot be sent through Care Everywhere. 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 Education completed via explanation, teach back, demonstration and handout . Patient verbalized understanding Cosigned by Chloe Sevilla DPT at 09/20/2019 3:52 PM DAIRY POWDER MIXER OPERATOR Y POWDER MIXER OPERATOR Y POWDER MIXER OPERATOR * Jolene Lal PA - 09/20/2019 12:15 [...] 6. VTE prophylaxis: SCDs. Encourage early ambulation. Jolene Lal PA-C [facility] [phone] Full Code Y POWDER MIXER OPERATOR * Toshia Peañloza, DPT - 09/19/2019 3:17 PM CST Physical Therapy Evaluation 09/19/19 5437 General Chart Reviewed Yes Session Type Evaluation [...] used at baseline Prior Function Level of Wol[place] Independent with ADLs;Independent functional transfers;Independent with ambulation;Independent [...] (from Physical Therapy) Active Problems Problem: PT [facility] Start Date: 09/19/19 Goal Start Date End Date [facility] 1 09/19/19 -- Goal Details: Pt to demonstrate supine to/from sit and log rolling bilaterally with Modified [place]. Goal Start Date End Date [facility] 2 09/19/19 -- Goal Details: Pt to demonstrate sit-stand and bed-chair transfers with Modified [place]. Goal Start Date End Date [facility] 3 09/19/19 -- Goal Details: Pt to ambulate greater than 150 feet with or without device and Modified Independencefor safe home and community distances. Goal Start Date End Date [facility] 4 09/19/19 -- Goal Details: Pt to ascend/descend [address] with SBA for safe home entry/mobility. Goal Start Date End Date [facility] 5 09/19/19 -- Goal Details: Pt to verbalize & demonstrate 3/3 spinal precautions during basic mobility tasks 100%. Y POWDER MIXER OPERATOR Y POWDER MIXER OPERATOR documented in this encounter H&P Notes * [...] had treatments including epidural injections by Dr. Lilly, wh ich initially provided some temporary relief. [...] reveals 5/5 strength in deltoids, biceps, triceps, sample wrapper, iliopsoas, hamstrings, dorsiflexors, plantar flexors, and extensor [...] NO CHANGES NOTED Job ID/VF Job ID: [id number] Y POWDER MIXER OPERATOR documented in this encounter Nursing Notes * Rosa Lopez RN - 09/20/2019 1:24 PM CST AVS, Discharge zones, and post op checklist printed and reviewed with patient and at the bedside. Both verbalized understanding and noted no further questions. Rx sent to patients pharmacy. Ready for discharge home with home health. Y POWDER MIXER OPERATOR documented in this encounter Miscellaneous Notes * [...] 60 ml. It was removed by the HARNESS PULLER after lunch, dressing applied. here to take home. Appetite good. Drinking fluids well. Y POWDER MIXER OPERATOR * Plan of Care - Vero Perez RN - 09/20/2019 12:00 PM CST Referral received for Home Health. Patient agreeable to home care services. Home Health services arranged through [facility]- [place] office [phone]. [facility] [employer] contact number, . Thank you! Y POWDER MIXER OPERATOR * Plan of Care - Kim Olson RN - 09/20/2019 11:19 AM CST CM note-received [facility] orders from MD, spoke with pt. And offered [facility] choice list, wishes to use [facility], [facility], and await acceptance. Y POWDER MIXER OPERATOR * Plan of Care - Kim Olson RN - 09/20/2019 8:27 AM CST CM note-pt. Screened for high-risk needs, pt. from home, verified pt's home address, prior to admitindep. With adl's and ambulation, await therapy evals, currently no discharge needs noted. Y POWDER MIXER OPERATOR * Plan of Care - Yessica Purcell RN - 09/20/2019 2:12 AM CST Goals: Clinical Goals for the Shift: pain control, VSS, advance mobility Summary: VSS. Patient's pain well controlled with PO pain meds. Ativan administered for anxiety/restlessness. [place]mana draining clear yellow urine. Lidocaine drip completed. No new issues. Y POWDER MIXER OPERATOR * Plan of Care - Megan Muir [...] and advancing mobility, VSS and pain controlled Y POWDER MIXER OPERATOR * Op Note - Don Estrella MD [...] i-Factor as well. Surgeon Dr. Don Estrella. Frog Catcher Josse Nguyen. Indication for Procedure Patient is [...] L2 spinous process, L2-3 facet complex and N1unmknrtcdg process. Self-retaining retractors were placed. The [employer] [...] Loss 300 mL. Job ID/VF Job ID: [id number] Y POWDER MIXER OPERATOR documented in this encounter Plan of Treatment Scheduled Orders Name Type Priority Associated Diagnoses Orde r Schedule Gross/Hardware Pathology and Cytology Routine Spinal stenosis, lumbar region, with neurogenic claudication Once (Routine) for 1 Occurrences starting 09/19/2019 documented as of this encounter Procedures Procedure Name Priority Date/Time Associated Diagnosis Comments POCT GLUCOSE DEVICE Routine 09/20/2019 1 1:54 AM DAIRY POWDER MIXER OPERATOR POCT GLUCOSE DEVICE Routine 09/20/2019 6 :31 AM DAIRY POWDER MIXER OPERATOR CBC WITHOUT DIFFERENTIAL Routine 09/20/2019 6:08 AM DAIRY POWDER MIXER OPERATOR POCT GLUCOSE DEVICE Routine 09/19/2019 8 :55 PM DAIRY POWDER MIXER OPERATOR POCT GLUCOSE DEVICE Routine 09/19/2019 4 :43 PM DAIRY POWDER MIXER OPERATOR POCT GLUCOSE DEVICE Routine 09/19/2019 1 2:47 PM DAIRY POWDER MIXER OPERATOR FL FLUOROSCOPY < 1 HOUR IP Routine 09/19/2019 11:20 AM DAIRY POWDER MIXER OPERATOR XR SPINE LUMBAR 2 OR 3 VIEWS IP Routine 09/19/2019 11:20 AM DAIRY POWDER MIXER OPERATOR SURGICAL PATHOLOGY Routine 09/19/2019 9: 46 AM DAIRY POWDER MIXER OPERATOR Spinal stenosis, lumbar region, with neurogenic claudication FUSION LAMINECTOMY LUMBAR - POSTERIOR 09/19/2019 8:29 AM DAIRY POWDER MIXER OPERATOR Spinal stenosis, lumbar region, with neurogenic claudication PREPARE RBC STAT 09/19/2019 7:35 AM DAIRY POWDER MIXER OPERATOR POCT GLUCOSE DEVICE Routine 09/19/2019 7 :01 AM DAIRY POWDER MIXER OPERATOR documented in this encounter Results * POCT glucose (09/20/2019 11:54 AM DAIRY POWDER MIXER OPERATOR) Glucose, POC 140 70 - 140 mg/dL [facility] Comment: For Glucose values <35 mg/dl when Hematocrit is >60 mg/dl,the test may not accurately detect significant hypoglycemia,and testing in the Laboratory should be considered if clinically indicated. Blood specimen (specimen) 09/20/2019 11:54 AM DAIRY POWDER MIXER OPERATOR 09/20/2019 11:54 AM DAIRY POWDER MIXER OPERATOR us Don Estrella MD LAB POCT ORDERABLES - DEV ICE Final Result [facility] [address] Department [place] [address] * POCT glucose (09/20/2019 6:31 AM DAIRY POWDER MIXER OPERATOR) Glucose, POC 123 70 - 140 mg/dL [facility] Comment: For Glucose values <35 mg/dl when Hematocrit is >60 mg/dl,the test may not accurately detect significant hypoglycemia,and testing in the Laboratory should be considered if clinically indicated. Blood specimen (specimen) 09/20/2019 6:31 AM DAIRY POWDER MIXER OPERATOR 09/20/2019 6:31 AM DAIRY POWDER MIXER OPERATOR Don Estrella MD LAB POCT ORDERABLES - DEV ICE Final Result Performing Organization Address [facility] Co de Phone Number [facility] [address] [employer] [place], [place] [id number] * (ABNORMAL) CBC without differential (09/20/2019 6:08 AM DAIRY POWDER MIXER OPERATOR) WBC 11.5(H) 3.8 - 9.9 K/cumm [facility] Hgb 11.0(L) 13.0 - 17.5 g/dL [facility] Hct 34.8(L) 38.9 - 50.3 % [facility] Plt 208 150 - 400 K/cumm [facility] MPV 10.6 9.1 - 12.3 fL [facility] RBC 3.88(L) 4.30 - 5.80 M/cumm [facility] MCV 89.7 81.3 - 96.4 fL [facility] MCH 28.4 27.1 - 33.3 pg [facility] MCHC 31.6(L) 32.3 - 35.7 g/dL [facility] RDW CV 13.2 11.1 - 14.9 % [facility] RDW SD 43.3 35.7 - 48.1 fL [facility] NRBC abs 0.00 0.00 - 0.01 K/cumm [facility] Blood specimen (specimen) 09/20/2019 6:08 AM DAIRY POWDER MIXER OPERATOR 09/20/2019 6:34 AM DAIRY POWDER MIXER OPERATOR Don Estrella MD LAB BLOOD ORDERABLES Erica l Result [facility] [address] [employer] [place], [place] [id number] * (ABNORMAL) POCT glucose (09/19/2019 8:55 PM DAIRY POWDER MIXER OPERATOR) Glucose, POC 141(H) 70 - 140 mg/dL [facility] Comment: For Glucose values <35 mg/dl when Hematocrit is >60 mg/dl,the test may not accurately detect significant hypoglycemia,and testing in the Laboratory should be considered if clinically indicated. Blood specimen (specimen) 09/19/2019 8:55 PM DAIRY POWDER MIXER OPERATOR 09/19/2019 8:55 PM DAIRY POWDER MIXER OPERATOR us Don Estrella MD LAB POCT ORDERABLES - DEV ICE Final Result Performing Organization Address [facility] de Phone Number [facility] [address] [place] [address] * (ABNORMAL) POCT glucose (09/19/2019 4:43 PM DAIRY POWDER MIXER OPERATOR) Glucose, POC 249(H) 70 - 140 mg/dL [facility] Comment: For Glucose values <35 mg/dl when Hematocrit is >60 mg/dl,the test may not accurately detect significant hypoglycemia,and testing in the Laboratory should be considered if clinically indicated. Blood specimen (specimen) 09/19/2019 4:43 PM DAIRY POWDER MIXER OPERATOR 09/19/2019 4:43 PM DAIRY POWDER MIXER OPERATOR Result [facility] us Don Estrella MD LAB POCT ORDERABLES - DEV ICE Final Result Performing Organization Address [facility] de Phone Number [facility] [address] [place] [address] * (ABNORMAL) POCT glucose (09/19/2019 12:47 PM DAIRY POWDER MIXER OPERATOR) Glucose, POC 153(H) 70 - 140 mg/dL [facility] Comment: For Glucose values <35 mg/dl when Hematocrit is >60 mg/dl,the test may not accurately detect significant hypoglycemia,and testing in the Laboratory should be considered if clinically indicated. Blood specimen (specimen) 09/19/2019 12:47 PM DAIRY POWDER MIXER OPERATOR 09/19/2019 12:47 PM DAIRY POWDER MIXER OPERATOR us Don Estrella MD LAB POCT ORDERABLES - DEV ICE Final Result Performing Organization Address [facility] de Phone Number [facility] [address] [place] [address] * FL Fluoroscopy < 1 Hour (09/19/2019 11:20 AM DAIRY POWDER MIXER OPERATOR) Narrative [facility] - 09/19/2019 11:21 AM DAIRY POWDER MIXER OPERATOR The images from this study are not interpreted by Radiology. ??Please refer to the physician's procedure / OR operative note. Don Estrella MD IMG FLUOROSCOPY PROCEDURE S Final Result [facility] * XR Spine Lumbar 2 or 3 Views (09/19/2019 11:20 AM DAIRY POWDER MIXER OPERATOR) Anatomical Region Laterality Modality Spine N/A Computed Radiogr aphy 09/19/2019 1:24 PM DAIRY POWDER MIXER OPERATOR Impressions 09/19/2019 1:26 PM DAIRY POWDER MIXER OPERATOR 1. Intraoperative evaluation during posterior lumbar spinal fusion. Electronically signed by: Jazlyn Kelley M.D. Narrative 09/19/2019 1:26 PM DAIRY POWDER MIXER OPERATOR Examination: Lumbar spine 2 or 3 views. [...] esult * Surgical pathology (09/19/2019 9:46 AM DAIRY POWDER MIXER OPERATOR) Tissue (Disc, intervertebral) 09/19/2019 9:53 AM DAIRY POWDER MIXER OPERATOR Narrative PATHOLOGY [facility] - 09/20/2019 6:01 PM DAIRY POWDER MIXER OPERATOR [place] [id number] [facility], [place], [place] ??[address] Tele: ?? Janice Dixon MD - Cloth Finishing Range Operator ?? Kelechi Sarah - Director Business Development SURGICAL PATHOLOGY REPORT Patient Name: ??SIMONE MARCH Address: ??[address], [place] [address] Gender: ??M : ??1940 (Age: 79) Service: ??Surgery Location: ??[address], ?? Hospital #: ??[id number] Patient Type: ?? Inpatient Accession #: ? [id number] Taken: ? 09/19/2019 Received ? 09/19/2019 Reported: ? 09/20/2019 Physician(s): ? Иван Valerio M.D. DIAGNOSIS: Foreign object, rods, removal: ? -Metallic rods (gross) Vertebral column, disc material, excision: ? -Fibrocartilaginous tissue, with nonspecific reactive type changes as09/20/2019 16:11 Examining Pathologist: Clay Franklin M.D. Report Reviewed and Electronically Signed By ??Clay Franklin M.D. SPECIMEN TYPE: A: RODS B: DISC MATERIAL CLINICAL IMPRESSION AND HISTORY: Spinal stenosis, lumbar region with neurogenic claudication. GROSS DESCRIPTION: Received fresh in container A and labeled Simone Manda Kinjalrusic and rods are two intact silver metallic rods measuring 6.5 x 0.5 cm and 6.6 x 0.5 cm. ??There is no tissue attached to the rods. ??The specimen is gross examination only. Received in formalin in container B and labeled Simone Holman Kinjalrusic and disc material are multiple pink-izaguirre tissue fragments measuring 4.8 x 3.2 x 0.5 cm in aggregate. ??Handbag Framer sections are submitted in cassette B1. [facility]/09/19/2019 13:57 ? [facility] MICROSCOPIC DESCRIPTION: Microscopic examination supports the above captioned diagnosis. Clerical Data Follows A; 94009 B; [id number] REPORT IMAGES AND/OR SCANNED DOCUMENTS ONLY VIEWABLE IN PDF FORMAT The immunohistochemical test(s) cited in this report, if any, was developed and its performance characteristics determined by [facility] Pathology Department. ??It has not been cleared or approved by the U.S. Food and Drug Administration. ??The FDA has determined that such clearance or approval is not necessary. ??This test is used for clinical purposes. ??It should not be regarded as investigational or for research. ??[facility] Laboratory is certified under the Clinical [...] Estrella MD LAB PATHOLOGY ORDERABLES Final Result PATHOLOGY [facility] Laboratory Receiving [address] [place] [address] * Prepare RBC (09/19/2019 7:35 AM DAIRY POWDER MIXER OPERATOR) Product code [id number] [facility] Unit Number [id number] 1-N [facility] Product Blood Type APOS [facility] Dispense Status RETURNED [facility] Product code [id number] [facility] Unit Number [id number] 7-E [facility] Product Blood Type APOS [facility] Dispense Status RETURNED [facility] Blood specimen (specimen) 09/19/2019 7:35 AM DAIRY POWDER MIXER OPERATOR 09/19/2019 7:35 AM DAIRY POWDER MIXER OPERATOR Don Estrella MD BLOOD BANK PRODUCT ORDERA BLES Final Result [facility] [address] [place] [address] * POCT glucose (09/19/2019 7:01 AM DAIRY POWDER MIXER OPERATOR) Glucose, POC 122 70 - 140 mg/dL [facility] Comment: For Glucose values <35 mg/dl when Hematocrit is >60 mg/dl,the test may not accurately detect significant hypoglycemia,and testing in the Laboratory should be considered if clinically indicated. Blood specimen (specimen) 09/19/2019 7:01 AM DAIRY POWDER MIXER OPERATOR 09/19/2019 7:01 AM DAIRY POWDER MIXER OPERATOR us Don Estrella MD LAB POCT ORDERABLES - DEV ICE Final Result [facility] [address] [place] [address] documented in this encounter Visit Diagnoses Diagnosis Spinal stenosis, lumbar region, with neurogenic claudication documented in this encounter Administered Medications Inactive Administered Medications - up to 3 most recent administrations Medication Order MAR Action Action Date Dose Rate Site acetaminophen (TYLENOL) tablet 1,000 mg 1,000 mg, oral, Once, On Thu09/19/19 at 0715, For 1 dose, Pre-Op, Indications: Pre-Emptive AnalgesiaIndications:Pre-Emptive Analgesia Given 09/19/2019 7:28 AM DAIRY POWDER MIXER OPERATOR 1,000 mg acetaminophen (TYLENOL) tablet 1,000 mg 1,000 mg, oral, Every 6 hours scheduled, First dose on Thu09/19/19 at 1500, Indications: PainIndications:Pain Given 09/20/2019 8:26 AM DAIRY POWDER MIXER OPERATOR 1,000 mg Given 09/20/2019 1:58 AM DAIRY POWDER MIXER OPERATOR 1,000 mg Given 09/19/2019 8:47 PM DAIRY POWDER MIXER OPERATOR 1,000 mg baclofen (LIORESAL) tablet 10 mg 10 mg, oral, Every 8 hours scheduled, First dose on Thu09/19/19 at 1430, Indications: Muscle spasmIndications:Muscle spasm Given 09/20/2019 1:03 PM DAIRY POWDER MIXER OPERATOR 10 mg Given 09/20/2019 6:32 AM DAIRY POWDER MIXER OPERATOR 10 mg Given 09/19/2019 8:47 PM DAIRY POWDER MIXER OPERATOR 10 mg dextrose (D10W) 10% bolus 250 mL 250 [...] Call MD for each episode of hypoglycemia. REGULATORY AFFAIRS CONSULTANT STATES GLUTOSE-15 CONTAINS GLUCOSE 40% W/W (50% W/V), Indications: hypoglycemic disorderIndications:hypoglycemic disorder docusate sodium (COLACE) capsule 100 mg 100 mg, oral, 2 times daily, First dose on Thu09/19/19 at 1430, Hold for diarrhea, Indications: constipationIndications:constipation Given 09/20/2019 8:26 AM DAIRY POWDER MIXER OPERATOR 100 mg Given 09/19/2019 8:48 PM DAIRY POWDER MIXER OPERATOR [address] (CYMBALTA) extended release capsule 60 mg 60 mg, oral, Daily, First dose on Thu09/20/19 at 0900, Capsule may be opened and contents mixed with applesauce or apple juice ONLY. Do not crush, chew, cut, dissolve, open or otherwise manipulate tablet/capsule. Given 09/20/2019 8:26 AM DAIRY POWDER MIXER OPERATOR 60 mg gabapentin (NEURONTIN) capsule 200 mg 200 mg, oral, Once, On Thu09/19/19 at 0715, For 1 dose, Pre-Op, Indications: Pre-Emptive AnalgesiaIndications:Pre-Empt raquel Analgesia Given 09/19/2019 7:28 AM DAIRY POWDER MIXER OPERATOR 200 mg glucagon injection 1 mg 1 mg, [...] Diabetes MellitusIndications:Diabetes Mellitus Given 09/19/2019 4:45 PM DAIRY POWDER MIXER OPERATOR 2 Units Right Lower Abdomen insulin lispro (HumaLOG) injection 1-5 Units 1-5 Units, subcutaneous, Once as needed, high [...] status., Indications: Diabetes MellitusIndications:Diabetes Mellitus Given 09/19/2019 12:49 PM DAIRY POWDER MIXER OPERATOR 1 Units Right Upper Arm Lactated Ringer's (LR) infusion 30 mL/hr, intravenous, Continuous, Starting on Thu09/19/19 at 0715 New Bag 09/19/2019 9:54 AM DAIRY POWDER MIXER OPERATOR New Bag 09/19/2019 7:28 AM DAIRY POWDER MIXER OPERATOR 30 mL/hr 30 mL/hr lisinopril (PRINIVIL,ZESTRIL) tablet 40 mg 40 mg, oral, Daily, First dose on Thu09/20/19 at 0900 Given 09/20/2019 8:26 AM DAIRY POWDER MIXER OPERATOR 40 mg LORazepam (ATIVAN) injection 0.5 mg 0.5 mg, intravenous, Every 6 hours PRN, anxiety, Starting on Thu09/19/19 at 1345, For IV administration, dilute with equal volume of 0.9% sodium chloride. Do not exceed a rate of 2 mg/minute Given 09/19/2019 10:18 PM DAIRY POWDER MIXER OPERATOR 0.5 mg metFORMIN (GLUCOPHAGE) tablet 2,000 mg 2,000 mg, oral, Daily with dinner, First dose on Thu09/19/19 at 1800, Take with food Given 09/19/2019 4:45 PM DAIRY POWDER MIXER OPERATOR 2,000 mg oxyCODONE (ROXICODONE) tablet 5 mg 5 mg, oral, Every 4 hours PRN, 1st line for pain, Starting on Thu09/19/19 at 1352, Indications: PainIndications:Pain Given 09/20/2019 1:03 PM DAIRY POWDER MIXER OPERATOR 5 mg Given 09/20/2019 8:27 AM DAIRY POWDER MIXER OPERATOR 5 mg Given 09/20/2019 2:01 AM DAIRY POWDER MIXER OPERATOR 5 mg simvastatin (ZOCOR) tablet 40 mg 40 mg, oral, Nightly, First dose on Thu09/19/19 at 2100 Given 09/19/2019 8:48 PM DAIRY POWDER MIXER OPERATOR 40 mg sodium chloride 0.9% infusion 100 mL/hr, intravenous, Continuous, Starting on Thu09/19/19 at 1430, Phase I & Post-op Floor, Dc if po intake >800cc New 09/19/2019 10:01 PM DAIRY POWDER MIXER OPERATOR 100 mL/hr 100 mL/hr New Bag 09/19/2019 1:46 PM DAIRY POWDER MIXER OPERATOR 100 mL/hr 100 mL/hr vancomycin 1,000 mg/200 mL in dextrose 5% (premix) 1,000 mg 1,000 mg, intravenous, Administer over 60 Minutes, Once, On Thu09/19/19 at 1900, For 1 dose, Administer 12 hours after last pre-operative dose., Indications: Prophylaxis, SurgicalIndications:Prophylaxis, Surgical New Bag 09/19/2019 8:47 PM 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 Scheduled Medication Order 09/18/2019 09/19/2019 09/20/2019 acetaminophen [...] regular diet yet)204 (Given - Provider: Yessica Purcell, ZINA) 0632 (Given - Provider: Yessica Purcell RN)1303 (Given - Provider: Keila Oconnor RN) docusate sodium (COLACE) capsule 100 mg 100 mg, oral, 2 times daily, First dose on Thu09/19/19 at 1430, Hold for diarrhea, Indications: constipation 1438 (Not Given - Provider: Megan Muir RN - Reason: Other - Comment: not tolerating regular diet yet)2047 (Given - Provider: Yessica Purcell RN) 0826 (Given - Provider: Keila Oconnor RN) DULoxetine DR (CYMBALTA) extended release capsule 60 mg 60 mg, oral, Daily, First dose on Thu09/20/19 at 0900, Capsule may be opened and contents mixed with applesauce or apple juice ONLY. Do not crush, chew, cut, dissolve, open or otherwise manipulate tablet/capsule. 0826 (Given - Provid er: Keila Oconnor RN) gabapentin (NEURONTIN) capsule 200 mg (COMPLETED) 200 mg, oral, Once, On Thu09/19/19 at 0715, For 1 dose, Pre-Op, Indications: Pre-Emptive Analgesia 07 (Given - Provider: Suzy Puente RN) insulin lispro (HumaLOG) injection 1-2 Units 1-2 [...] not met)1200 (Not Given - Provider: Keila Oconnor RN - Reason: Order parameters not met) lisinopril [...] Surgical 0735 (New Bag - Provider: Suzy Puente RN) Continuous Medication Order 09/18/2019 09/19/2019 09/20/2019 [...] RN)2201 (New Bag - Provider: Yessica Purcell, RN) 0956 (Stopped - Provider: Keila Oconnor RN [...] Call MD for each episode of hypoglycemia. REGULATORY AFFAIRS CONSULTANT STATES GLUTOSE-15 CONTAINS GLUCOSE 40% W/W (50% [...] 2 mg/minute 2218 (Given - Provider: Yessica Purcell RN) microfibrillar collagen (AVITENE) powder (CANCELED) As needed, [...] Call MD for each episode of hypoglycemia. REGULATORY AFFAIRS CONSULTANT STATES GLUTOSE-15 CONTAINS GLUCOSE 40% W/W (50% W/V), Indications: hypoglycemic disorder Or dextrose (D10W) 10% bolus 250 mLJump to med 250 mL, intravenous, at 1,000 mL/hr, Administer over 15 Minutes, Every 15 min PRN, blood glucose less than 70 mg/dL and UNABLE to swallow/take PO glucose/juice., Starting on 09/19/19 at 1359, After treatment for hypoglycemia, recheck [...] Count Last Ordered Date First Ordered Date albuterol 2.5 mg /3 mL (0.08 3 %) nebulizer solution 2.5 mg 09/19/2019 bacitracin 50,000 Units in s odium chloride 0.9% 800 mL solution 09/19/2019 bupivacaine-EPINEPHrine (MAR BETY with EPI) 0.5 %-1:200,000 preservative free injection 09/19/2019 dexAMETHasone (DECADRON) 4 mg/mL injection 09/19/2019 dextrose (D10W) 10% bolus 250 mL 09/19/19 dextrose (GLUTOSE) 40 % gel 15 g 09/19/19 20 diphenhydrAMINE (BENADRYL) i njection 12.5 mg 09/19/2019 empagliflozin (JARDIANCE) tablet 25 mg fentaNYL (SUBLIMAZE) preserv ative free injection 25 mcg 09/19/2019 glucagon injection 1 mg 09/19/2019 haloperidol (HALDOL) injection 1 mg 09/19 hydrALAZINE (APRESOLINE) injection 5 mg 1 0 09/19/2019 HYDROmorphone (DILAUDID) injection 0.2 mg 09/19/2019 HYDROmorphone (DILAUDID) injection 0.4 mg 09/19/2019 insulin lispro (HumaLOG) inj ection 1-2 Units 09/19/2019 labetalol (NORMODYNE,TRANDAT E) injection 5 mg 09/19/2019 lidocaine in dextrose 5% 2 g /250 mL (8 mg/mL) infusion (premix) 1 09/19/2019 lidocaine PF (XYLOCAINE) 10 mg/mL (1 %) preservative free injection 2-10 mg 1 09/19/2019 meperidine (DEMEROL) preserv ative free injection 12.5 mg 1 09/19/2019 microfibrillar collagen (AVITENE) powder 1 09/19/2019 morphine preservative free injection 1 09/07 naloxone (NARCAN) 0.4 mg/mL injection 0.04-0.4 mg 1 09/19/2019 ondansetron (ZOFRAN) injection 4 mg 1 09/19 oxyCODONE (ROXICODONE) tablet 5 mg 2 2019 povidone-iodine (BETADINE NV EP) 5 % ophthalmic solution 1 09/19/2019 promethazine (PHENERGAN) tablet 25 mg 1 racepinephrine (ASTHMANEFRIN ) 2.25 % nebulizer solution 0.5 mL 1 09/19/2019 sodium chloride 0.9 % irrigation 1 09/19/19 20 sodium chloride 0.9% flush 0.5-20 mL 09/07 vancomycin (VANCOCIN) solution 1 09/19/2019 Lab Orders Without Results Count Last Ordered D ate First Ordered Date POCT GLUCOSE DEVICE 4 09/20/2019 09/19/19 20 Nursing Count Last Ordered Date First Orde red Date DISCHARGE INSTRUCTIONS 1 09/20/2019 STRAIGHT CATH 1 09/19/2019 CORE MEASURES Count Last Ordered Date First Ord ered Date REASON FOR NO VTE PROPHYLAXI S - HOSPITAL ADMISSION - MEDICATIONS 1 09/19/2019 documented in this encounter Care Teams Biztalk Administrator Relationship Specialty Start Date End Date Beck Benites MD [address] [address] PCP - General 11/06/16 documented as of this encounter
--- OUTSIDE RECORDS SUMMARY | 2024-08-25 17:02 | XMS_ITS | Encounter Summary ---
Author Organization [facility] Facility Care Team Providers Care Production Operations Manager Name Role Phone Unavailable Primary Care Provider Unavailabl e Encounter Details Date Type Department Care Team (Late st Contact Info) Description 11/17/2007 11:49 AM CDT - 11/17/2007 11:59 PM CDT Hospital Encounter [facility] Jeffery Andrews MD [address] [place] [address] Social History Tobacco Use Types Packs/Day Years Used Date Smoking Tobacco: Never Assessed Sex and Gender Information Value Date Recorded Sex Assigned at Not on file 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
--- OUTSIDE RECORDS SUMMARY | 2024-08-25 17:02 | XMS_ITS | Encounter Summary ---
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
--- OUTSIDE RECORDS SUMMARY | 2024-08-25 17:02 | XMS_ITS | Encounter Summary ---
Author Organization [facility] Home Care Servic es Address [address] [place] [address] Phone Care Team Providers Care Kaiako Kura Tuarua Name Role Phone Beck Benites MD Primary Care Provider [phone] Reason for Visit * Auth/Cert Specialty Diagnoses / Procedures Referred By Contac t Referred To Contact Referral ID Status Reason Start Date Expiration Date Visits Re quested Visits Authorized [id number] 1 1 Encounter Details Date Type Department Care Team (Latest Contact Info) Description 09/22/2019 3:30 PM ALUMNAE SECRETARY Home Care Visit [facility] Home Health [address] [place] [address] An Herron, PT PT OASIS START OF CARE Social History Tobacco Use Types Packs/Day Years Used Date Smoking Tobacco: Former Cigarettes 0.1 8 1 - 09/05/1995 Smokeless Tobacco: Never Alcohol Use Standard Drinks/Week Comments Yes 2 (1 standard drink = 0.6 oz pur e alcohol) occassionally Sex and Gender Information Value Date Recorded Sex Assigned at Not on file 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 Sex 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 Gender Identity Not on file Sexual Orientation Not on file documented as of this encounter Last Filed Vital Signs Vital Sign Reading Time Taken Comments Blood Pressure 112/70 09/22/2019 4:02 PM ALUMNAE SECRETARY Pulse 92 09/22/2019 4:02 PM ALUMNAE SECRETARY Temperature 35.8 ??C (96.5 ??F) 09/22/2019 4:02 PM CS T Respiratory Rate 16 09/22/2019 4:02 PM ALUMNAE SECRETARY Oxygen Saturation 95% 09/22/2019 4:02 PM ALUMNAE SECRETARY Inhaled Oxygen Concentration - - Weight - - Height - - Body Mass Index - - documented in this encounter Plan of Treatment Not on file documented as of this encounter Visit Diagnoses Not on filedocumented in this encounter Home Health Visit - Care Plan Visit Details Visit Type -PT OASIS Start o f Care Discipline -Physical Therapy Problems Problem Description Start [...] Therapy Impaired functional mobility 09/22/2019 Active - 4 problem interventions scheduled/document ed in this visit Goals Goal Associated Problem Outcome Goal Met? Visit Notes Patient recieves care at the most appropriate care setting Description: Patient receives care at the most appropriate care setting. Homebound Status No Measure vital signs during every home health visit during episode of care Description: Home treatment plant operator to measure vital signs during every home [...] HEP. Problem:PT Impaired Functional Mobility Completed INstructed in supine ankle pumps, heel slides, glut sets, hip abd 10 reps. Has written HEP. INstructed to perform 2 x day 10 reps without pain. Will progress to standing exercises and issued written HEP. Patient verbalizes understanding Gait/Stair Training Description: Instruct patient/caregiver and perform gait/stair training. Problem:PT Impaired Functional Mobility Completed Gait training without device level surfaces for 3 min. Instructed to perform timed walking and grdually add time. Instructed to always be able to walk and talk and not to increase back pain. Patient verbalizes understanding. Bed Mobility/Transfer Training Description: Instruct patient/caregiver and perform bed mobility/transfer training. Problem:PT Impaired Functional Mobility Completed transfer training from chair and bed. Instructed not to tiwt the back ja with bed mobility. patient verbalizes understanding Therapeutic Exercise Description: Perform therapeutic exercise, progressing as tolerated. Problem:PT Impaired Functional Mobility Completed see HEP documented in this encounter Home Health Visit - Actions and Narratives Actions S/P back surgery. Glue intac t. NO drainage. INstructed in no lifting over 10LBS, no bending or twisitng of the back. Patient states before surgery he had symtoms radiating down the L leg. No doesn't have any symptoms down the leg. Instructed to not increase back pain or have any radiating symptoms with exercises and to stop if he had symptoms. Patient and verbalize good understanding documented in this encounter Care Teams Kaiako Kura Tuarua Relationship Specialty Start Date End Date Beck Benites MD [address] [address] PCP - General 11/06/16 documented as of this encounter
--- OUTSIDE RECORDS SUMMARY | 2024-08-25 17:02 | XMS_ITS | Encounter Summary ---
Author Organization [facility] Facility Care Team Providers Care Senior Marketing Engineer Name Role Phone Unavailable Primary Care Provider Unavailabl e Encounter Details Date Type Department Care Team (Latest Contact Info) Description 06/03/2016 9:30 AM CDT - 06/03/2016 11:59 PM CDT Hospital Encounter [facility] Adeola Chen MD [address] [place] [address] Postlaminectomy syndrome, not elsewhere classified Social History Tobacco Use Types Packs/Day Years Used Date Smoking Tobacco: Never Assessed Sex and Gender Information Value Date Recorded Sex Assigned at Not on file 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 TECHNIQUE: AP, lateral, coned-down lateral COMPARISON: 04/02/2016 FINDINGS: There is stable minimal retrolisthesis of L2 in relation to L3 and L3 in relation to L4. ??Laminectomy with bilateral posterior pedicle screws from L3 to L5. ??The overall alignment and appearance of the hardware appears unchanged. ??Noted again is very subtle lucency around the pedicle screws at L3 and L5 but the hardware is intact. Multilevel loss of disc space with endplate sclerosis and marginal osteophytes are noted with multilevel hypertrophic facet hypertrophy and sclerosis. ??All of this is stable and unchanged compared to the previous. Prominent calcified plaque throughout the visualized abdominal aorta and multiple surgical clips are again noted in the pelvis. IMPRESSION: Little interval change compared to the prior lumbar spine study from 04/02/2016. ??Overall alignment and appearance of the hardware remains unchanged. Electronically signed by: MILAN ENGLE MD Radiologist: MILAN ENGLE ? Attending: ??ADEOLA CHEN M.D. Requesting: ADEOLA CHEN M.D. Requesting Fax: ?? Requesting ID: [id number] Attending Fax: ?? Attending ID: ?? [id number] Completed Time: ?? 06/03/2016 10:05 AM Dictated Time: ?N/A Transcribed Time: 06/03/2016 4:47 PM Signed by: ?MILAN ENGLE ?on 06/03/2016 4:47 PM Report To 1 ID: Report To 1 Name: , Report To 1 FAX: Report To 2 ID: Report To 2 Name: , Report To 2 FAX: Report To 3 ID: Report To 3 Name: , Report To 3 FAX: NextGen Order #: Procedure Note Provider, MD Yasmeen - 01/09/2017 Lumbar spine, three-view HISTORY: 76-year-old postlaminectomy syndrome. TECHNIQUE: AP, lateral, coned-down lateral COMPARISON: 04/02/2016 FINDINGS: There is stable minimal retrolisthesis of L2 in relation to L3 and L3 in relation to L4. Laminectomy with bilateral posterior pedicle screws from L3 to L5. The overall alignment and appearance of the hardware appears unchanged. Noted again is very subtle lucency around the pedicle screws at L3 and L5 but the hardware is intact. Multilevel loss of disc space with endplate sclerosis and marginal osteophytes are noted with multilevel hypertrophic facet hypertrophy and sclerosis. All of this is stable and unchanged compared to the previous. Prominent calcified plaque throughout the visualized abdominal aorta and multiple surgical clips are again noted in the pelvis. IMPRESSION: Little interval change compared to the prior lumbar spine study from 04/02/2016. Overall alignment and appearance of the hardware remains unchanged. Electronically signed by: MILAN ENGLE MD Radiologist: MILAN ENGLE Attending: ADEOLA CHEN M.D. Requesting: ADEOLA CHEN M.D. Requesting Requesting ID: [id number] Attending Attending ID: [id number] Completed Time: 06/03/2016 10:05 AM Dictated Time: N/A Transcribed Time: 06/03/2016 4:47 PM Signed by: MILAN ENGLE on 06/03/2016 4:47 PM Report To 1 ID: Report To 1 Name: , Report To 1 FAX: Report To 2 ID: Report To 2 Name: , Report To 2 FAX: Report To 3 ID: Report To 3 Name: , Report To 3 FAX: NextGen Order #: us Historical Provider MD MORALES XR PROCEDURES Final R esult documented in this encounter Visit Diagnoses Diagnosis Postlaminectomy syndrome, not elsewhere classified documented in this encounter
--- OUTSIDE RECORDS SUMMARY | 2024-08-25 17:02 | XMS_ITS | Encounter Summary ---
Author Organization [facility] Facility Care Team Providers Care Shoemaker Apprentice Name Role Phone Unavailable Primary Care Provider Unavailabl e Encounter Details Date Type Department Care Team (Latest Contact Info) Description 11/09/2015 5:16 AM SUPERVISOR ROVING - 11/11/2015 11:18 AM SUPERVISOR ROVING Hospital Encounter [facility] Adeola Chen MD [address] [place] [id number] Spinal stenosis of lumbar region; Acute kidney failure (CMS/HCC); Spondylolisthesis of lumbar region; Hyperlipidemia; Essential (primary) hypertension; Gastro-esophageal reflux disease without esophagitis; Obstructive sleep apnea; Type 2 diabetes mellitus without complications (CMS/HCC); Allergy status to penicillin Social History Tobacco Use Types Packs/Day Years Used Date Smoking Tobacco: Never Assessed Sex and Gender Information Value Date Recorded Sex Assigned at Not on file Legal Sex Male 4:01 AM SUPERVISOR ROVING Gender Identity Not on file Sexual Orientation Not on file documented as of this encounter Last Filed Vital Signs Vital Sign Reading Time Taken Comments Blood Pressure 132/63 11/11/2015 8:18 AM SUPERVISOR ROVING Pulse 69 11/11/2015 8:18 AM SUPERVISOR ROVING Temperature - - Respiratory Rate - - Oxygen Saturation - - Inhaled Oxygen Concentration - - Weight 101.7 kg (224 lb 3.3 oz) 016 12:32 PM SUPERVISOR ROVING Height 171.4 cm (5' 7.48 ) 10/26/2015 1 2:32 PM SUPERVISOR ROVING Body Mass Index 34.62 10/26/2015 12:32 PM SUPERVISOR ROVING documented in this encounter Discharge Summaries * ProviderYasmeen MD - 11/11/2015 12:00 AM CST Patient: SIMONE MARCH Account: [id number] Room No: 2414-A : 1940 Proc. Date: Attending: ADEOLA CHEN MD Admit Date: 11/09/2015 Dictating: ADEOLA CHEN MD Disch. Date: 11/11/2015 Patient Type: IP Hospital Course: The patient is a 75-year-old gentleman admitted for decompression and fusion. Please refer to Admission Note for past medical history. The patient underwent a lumbar decompression and fusion. Postoperatively, he did very well. At the time of discharge, the incision was clean and dry and he was fully ambulatory. Discharge Instructions: He has been instructed on appropriate activity restrictions, and to wear a brace. Discharge Medications (Refer to Medication Reconciliation Sheet): 1. Percocet 5/325, 1 or 2 every 6 hours as needed for pain. 2. Flexeril 10 mg 3 times a day as needed for spasm. Discharge Followup: He will be seen in approximately 1 week for staple removal. He will contact the office to set up a time. He will notify us immediately for fever, redness, swelling, discharge, or untoward complications. Electronically Authenticated by: Adeola Chen MD On 11/13/2015 12:03 PM SUPERVISOR ROVING ADEOLA CHEN MD Dictated by: MD JASBIR MATIAS/scot TD: 11/13/2015 04:11 documented in this encounter Consult Notes * ProviderYasmeen MD - 11/10/2015 12:00 AM CST Patient: SIMONE MARCH Account: [id number] Room No: 2414-A : 1940 Consult Date: 11/10/2015 Attending: ADEOLA CHEN MD Admit Date: 11/09/2015 Consult.: SUE CHINCHILLA MD Disch. Date: 11/11/2015 Patient Type: IP INTERNAL MEDICINE CONSULTATION Primary Care Physician: Tenzin Benites MD Reason for Hospitalization: Back pain. Reason for Consultation: Medical comanagement. Attending/Requesting Physician: Adeola Chen MD History of Present Illness: Simone March is a 75-year-old male who underwent an L3 to L5 laminectomy and posterior spinal fusion by Dr Rafi Myers earlier today. I am seeing him postoperatively. He is doing well. He does have a history of diabetes mellitus for about 20 years, and was recently started on Victoza. At noon today, he attempted to take a shot of Victoza. Unfortunately, the pen was a little bit different than he is used to. He initially did not think that he got all of the medication, but after a little bit he had an episode of nausea and vomiting. He said he has had reactions to Victoza like this in the past. Otherwise, the patient states that since starting the Victoza his blood sugars have been in the 80s-100s. His last hemoglobin A1c a couple of months ago was about 8.8 apparently. He is also on Glucotrol and metformin. He has some mild peripheral neuropathy. He has no known retinopathy. He has not had any low blood sugars otherwise recently. Currently, he denies any chest pain, chest pressure, palpitations, orthopnea, PND, or peripheral edema. He denies any cough or sputum production. His last bowel movement was yesterday. Denies any abdominal pain, diarrhea, or constipation. He has a Hamlin catheter in place. Review of Systems: Constitutional: No fevers, chills, or night sweats. Head and Neck: No headache or neck pain. Eyes and Ears: No vision or hearing changes. Cardiovascular: See HPI. Respiratory: See HPI. Gastrointestinal: See HPI. Genitourinary: No change in micturition. Neurologic: No focal weakness, numbness, or tingling. Psychiatric: No delusions or hallucinations. Hematologic: No easy bruising or bleeding. Past Medical History: 1. Hypertension. 2. Hyperlipidemia. 3. Obstructive sleep apnea. 4. Reflux. 5. Diabetes mellitus. 6. Obesity. 7. History of prostate cancer. Past Surgical History: 1. Prostatectomy. 2. Hernia repairs times x2. Allergies: Penicillin. Apparently, in the 1960s he developed some hand and leg swelling. Social History: He is . He is retired. He does not smoke. Occasionally drinks alcohol. No history of drug use. Family History: Father had diabetes. Mother had congestive heart failure. Home Medications: 1. Lisinopril 40 mg with breakfast. 2. Aspirin 81 mg daily. 3. Vitamin B12, 1000 mcg at breakfast. 4. Simvastatin 40 mg at bedtime. 5. Glipizide 10 mg twice a day. 6. Metformin 2000 mg at dinner. 7. Victoza 1.2 mg subcutaneously daily. 8. Vitamin D3, 2000 international units daily. 9. Antacids. 10. Naproxen twice a day as needed. 11. ____ 5 mg 3 times a day as needed. 12. Pepcid 20 mg daily as needed. 13. Coenzyme Q. 14. Tylenol. 15. Advil. Physical Examination: General: He is awake, alert, and oriented. He is in no acute distress. Vital Signs: Blood pressure is 125/59, pulse is 90, respiratory rate 20, temperature 36.6, O2 saturation is 95 percent on 2L. HEENT: Pupils are equal, round and reactive to light and accommodation. Extraocular muscles are intact. Anicteric sclerae. [place] conjunctivae. Oral mucosa is a little dry. No ulcers are noted. Neck: No JVD, lymphadenopathy, or thyromegaly. Lungs: Bilateral air entry. No wheezes, rales, or rhonchi. Heart: S1, S2. No murmurs, rubs, or gallops noted. Abdomen: Obese, nontender, nondistended. Positive bowel sounds. No organomegaly. Extremities: No cyanosis, edema, or clubbing. Neurological: No focal neurological deficits at this time. Laboratory Data: Glucose was elevated at 257, otherwise morning glucose was 111. Last CBC and BMP were from 2 weeks ago, and were unremarkable. Impressions and Plan: 1. Diabetes mellitus type 2, uncontrolled, with mild peripheral neuropathy: At this time, I am going to hold all of his home medications for diabetes mellitus. I am going to start him on Lantus 8 units at night, 4 units of premeal Humalog, and a medium-dose sliding scale. This is weight-based insulin. It gives him about 20 units total daily dose of Lantus. We will monitor his blood sugars before meals and at bedtime. Continue him on a carbohydrate-consistent diet. 2. Hypertension: He is on lisinopril, however it has been known to cause hypotension in patients, especially after surgery in the immediate postoperative. I am going to hold his lisinopril and will monitor his blood pressures. If it starts to climb, then we will restart it at a lower dose. 3. Hyperlipidemia: Continue with his outpatient simvastatin. 4. Status post laminectomy and posterior spinal fusion: He will be on IV narcotics as needed for severe pain, and p.o. narcotics per Orthopedic Surgery. We will monitor his blood pressure, respiratory rate, and heart rate while on IV narcotics. 5. Obstructive sleep apnea: Continue CPAP. 6. Reflux: PPI. 7. Morbid obesity: Diet and exercise counseling. DVT Prophylaxis: As per the primary team. Thank you for this consultation. We will follow with you. Electronically Authenticated and Edited by: John Chinchilla On 12/24/2015 10:52 PM CDT SUE CHINCHILLA MD Dictated by: SUE CHINCHILLA MD TM/mt TD: 11/10/2015 01:25 CC: TENZIN BENITES M.D. documented in this encounter Miscellaneous Notes * Op Note - Provider, MD Yasmeen - 11/09/2015 12:00 AM CST Patient: SIMONE MARCH Account: [id number] Room No: 2414-A : 1940 Proc. Date: 11/09/2015 Surgeon: ADEOLA CHEN MD Admit Date: 11/09/2015 Disch. Date: 11/11/2015 Patient Type: IP Preoperative Diagnoses: 1. Spinal stenosis. 2. Spondylolisthesis with segmental instability L3-4. 3. Stenosis L4-5. Postoperative Diagnoses: 1. Spinal stenosis. 2. Spondylolisthesis with segmental instability L3-4. 3. Stenosis L4-5. Procedure Performed: 1. L3-4 and L4-5 laminectomy, facetectomy, and foraminotomy (bilateral), Dr Chen. 2. Posterolateral fusion L3-5, Dr Chen. 3. Instrumentation L3-5, Dr Chen. Surgeon: Adeola Chen MD Concrete Floor Installer: Rafi Myers MD Introduction: After careful review of the radiographic studies and clinical course, the patient and we agreed to the above-noted procedure. The patient previously been briefed on the goals, risks, limitations, and alternatives to surgical intervention. Description of Procedure: After the induction of adequate endotracheal anesthesia, the patient was placed on a Gil frame, and the frame was flexed. Sterile prep and drape of the lower lumbar area was undertaken. Midline skin incision was outlined, infiltrated local anesthetic, and carried down through the skin and subcutaneous tissue. Subperiosteal dissection was undertaken to expose the spinous process, lamina, and transverse processes of L3, L4, and L5. Radiographic verification of appropriate level was verified. We then sounded and tapped the pedicles in preparation for later screw placement. We then removed the lamina at L3-4 and L4-5 ____ central decompression, then undercut the medial facets to decompress the nerve roots well in the foramen bilaterally. We then processed the bone through the bone mill for grafting purposes, Decorticated the transverse processes, and placed screws 7.0 x 45 at L3, L4, and L5 at all levels. We then connected with a 70 mm shayan and tightened down with the provided ratchet screws. We then radiographically verified appropriate instrumentation placement, irrigated, placed Gelfoam to the exposed thecal sac and nerve root, and closed the lumbar muscle fascia with a 0 Vicryl suture. We irrigated, placed subcutaneous drain, and closed the skin with 2-0 subcutaneous sutures and ashley. Sterile dressing was then applied. Electronically Authenticated by: Adeola Chen MD On 11/12/2015 08:37 AM SUPERVISOR ROVING ADEOLA CHEN MD Dictated by: MD JASBIR MATIAS/scot TD: 11/10/2015 16:10 documented in this encounter Plan of Treatment Not on file documented as of this encounter Procedures Procedure Name Priority Date/Time Associated Diagnosis Comments BLOOD GLUCOSE Routine 11/11/2015 5:59 AM SUPERVISOR ROVING PLASMA RENAL PANEL Routine 11/11/2015 5: 17 AM SUPERVISOR ROVING PLASMA MAGNESIUM Routine 11/11/2015 5:17 AM SUPERVISOR ROVING DISCHARGE LABORATORY CUMULATIVE REPORT 11/11/2015 BLOOD GLUCOSE Routine 11/10/2015 9:25 PM SUPERVISOR ROVING BLOOD GLUCOSE Routine 11/10/2015 5:08 PM SUPERVISOR ROVING BLOOD GLUCOSE Routine 11/10/2015 12:13 PM SUPERVISOR ROVING BLOOD GLUCOSE Routine 11/10/2015 6:39 AM SUPERVISOR ROVING PLASMA RENAL PANEL Routine 11/10/2015 4: 42 AM SUPERVISOR ROVING PLASMA MAGNESIUM Routine 11/10/2015 4:42 AM SUPERVISOR ROVING BLOOD GLUCOSE Routine 11/09/2015 9:03 PM SUPERVISOR ROVING BLOOD GLUCOSE Routine 11/09/2015 4:40 PM SUPERVISOR ROVING BLOOD GLUCOSE Routine 11/09/2015 12:02 PM SUPERVISOR ROVING BLOOD GLUCOSE Routine 11/09/2015 9:22 AM SUPERVISOR ROVING XR SPINE 1 VW Routine 11/09/2015 9:05 AM SUPERVISOR ROVING XR SPINE 1 VW Routine 11/09/2015 8:20 AM SUPERVISOR ROVING BLOOD GLUCOSE Routine 11/09/2015 6:25 AM SUPERVISOR ROVING documented in this encounter Results * Blood glucose (11/11/2015 5:59 AM SUPERVISOR ROVING) [facility] Glucose, POC, bld 121 70 - 140 mg/dl HISTORICAL RESULTS Blood specimen (specimen) 11/11/2015 5:59 AM SUPERVISOR ROVING us Adeola Chen MD LAB BLOOD ORDERABLES Final R esult Performing Organization Address [facility] Co de Phone Number HISTORICAL RESULTS * Plasma magnesium (11/11/2015 5:17 AM SUPERVISOR ROVING) Magnesium 1.8 1.6 - 2.3 mg/dl HISTORICAL RESULTS Plasma 11/11/2015 5:17 AM SUPERVISOR ROVING us Sue Chinchilla MD LAB BLOOD ORDERABLES Final Res ult Performing Organization Address [facility] de Phone Number HISTORICAL RESULTS * (ABNORMAL) Plasma renal panel (11/11/2015 5:17 AM SUPERVISOR ROVING) Sodium 138 136 - 146 mmol/L HISTORICAL RESULTS K, pl 4.0 3.3 - 4.9 mmol/L HISTORICAL RESULTS Chloride 103 98 - 108 mmol/L HISTORICAL RESULTS CO2 29 22 - 33 mmol/L HISTORICAL RESULTS BUN 16 7 - 18 mg/dl HISTORICAL RESULTS Glucose 140 70 - 140 mg/dl HISTORICAL RESULTS Comment: Glucose is assumed to be non-fasting. ?? Fasting Glucose normal ranges are: 0 days - 2 months: ? 40 mg/dL - 100 mg/dL 2 months - 999 years: ?70 mg/dL - 99 mg/dL Creatinine 1.07 0.50 - 1.50 mg/dl HISTORICAL RESULTS eGFR >60 ml/min/1.7 3 m2 HISTORICAL RESULTS Comment: GFR Reference Range: = > 60 mL/min/1.73 m2 This result has been calculated assuming the patient is Non-. ??If the patient is , please multiply this result by 1.21. The GFR value is not recommended for medication dose adjustment for renal function, creatinine clearance values should be used. Calcium 7.9(L) 8.5 - 10.5 mg/dl HISTORICAL RESULTS Alb 2.9(L) 3.4 - 5.0 g/dl HISTORICAL RESULTS Phosphorus, pl 2.8 2.5 - 4.5 mg/dl HISTORICAL RESULTS Plasma 11/11/2015 5:17 AM SUPERVISOR ROVING Sue Chinchilla MD LAB BLOOD ORDERABLES Final Res ult Performing Organization Address [facility] Co de Phone Number HISTORICAL RESULTS * DISCHARGE LABORATORY CUMULATIVE REPORT (11/11/2015) Narrative 11/11/2015 Ordered by an unspecified provider. us Historical Provider LAB BLOOD ORDERABLES Erica l Result * (ABNORMAL) Blood glucose (11/10/2015 9:25 PM SUPERVISOR ROVING) Glucose, POC, bld 159(H) 70 - 140 mg/dl HISTORICAL RESULTS Blood specimen (specimen) 11/10/2015 9:25 PM SUPERVISOR ROVING Adeola Chen MD LAB BLOOD ORDERABLES Final R esult Performing Organization Address [facility] de Phone Number HISTORICAL RESULTS * (ABNORMAL) Blood glucose (11/10/2015 5:08 PM SUPERVISOR ROVING) Glucose, POC, bld 202(H) 70 - 140 mg/dl HISTORICAL RESULTS Blood specimen (specimen) 11/10/2015 5:08 PM SUPERVISOR ROVING Adeola Chen MD LAB BLOOD ORDERABLES Final R esult Performing Organization Address [facility] de Phone Number HISTORICAL RESULTS * Blood glucose (11/10/2015 12:13 PM SUPERVISOR ROVING) Glucose, POC, bld 124 70 - 140 mg/dl HISTORICAL RESULTS Blood specimen (specimen) 11/10/2015 12:13 PM SUPERVISOR ROVING Adeola Chen MD LAB BLOOD ORDERABLES Final R esult Performing Organization Address [facility] Co de Phone Number HISTORICAL RESULTS * (ABNORMAL) Blood glucose (11/10/2015 6:39 AM SUPERVISOR ROVING) Glucose, POC, bld 152(H) 70 - 140 mg/dl HISTORICAL RESULTS Blood specimen (specimen) 11/10/2015 6:39 AM SUPERVISOR ROVING us Adeola Chen MD LAB BLOOD ORDERABLES Final R esult Performing Organization Address [facility] de Phone Number HISTORICAL RESULTS * Plasma magnesium (11/10/2015 4:42 AM SUPERVISOR ROVING) Magnesium 1.8 1.6 - 2.3 mg/dl HISTORICAL RESULTS Plasma 11/10/2015 4:42 AM SUPERVISOR ROVING us Sue Chinchilla MD LAB BLOOD ORDERABLES Final Res ult Performing Organization Address [facility] de Phone Number HISTORICAL RESULTS * (ABNORMAL) Plasma renal panel (11/10/2015 4:42 AM SUPERVISOR ROVING) Sodium 135(L) 136 - 146 mmol/L HISTORICAL RESULTS K, pl 4.5 3.3 - 4.9 mmol/L HISTORICAL RESULTS Chloride 104 98 - 108 mmol/L HISTORICAL RESULTS CO2 24 22 - 33 mmol/L HISTORICAL RESULTS BUN 25(H) 7 - 18 mg/dl HISTORICAL RESULTS Glucose 186(H) 70 - 140 mg/dl HISTORICAL RESULTS Comment: Glucose is assumed to be non-fasting. ?? Fasting Glucose normal ranges are: 0 days - 2 months: ? 40 mg/dL - 100 mg/dL 2 months - 999 years: ?70 mg/dL - 99 mg/dL Creatinine 1.21 0.50 - 1.50 mg/dl HISTORICAL RESULTS eGFR 59 ml/min/1.7 3 m2 HISTORICAL RESULTS Comment: GFR Reference Range: = > 60 mL/min/1.73 m2 This result has been calculated assuming the patient is Non-. ??If the patient is , please multiply this result by 1.21. The GFR value is not recommended for medication dose adjustment for renal function, creatinine clearance values should be used. Calcium 7.9(L) 8.5 - 10.5 mg/dl HISTORICAL RESULTS Alb 3.2(L) 3.4 - 5.0 g/dl HISTORICAL RESULTS Phosphorus, pl 3.9 2.5 - 4.5 mg/dl HISTORICAL RESULTS Plasma 11/10/2015 4:42 AM SUPERVISOR ROVING Sue Chinchilla MD LAB BLOOD ORDERABLES Final Res ult Performing Organization Address [facility] de Phone Number HISTORICAL RESULTS * (ABNORMAL) Blood glucose (11/09/2015 9:03 PM SUPERVISOR ROVING) Glucose, POC, bld 225(H) 70 - 140 mg/dl HISTORICAL RESULTS Blood specimen (specimen) 11/09/2015 9:03 PM SUPERVISOR ROVING Adeola Chen MD LAB BLOOD ORDERABLES Final R esult Performing Organization Address [facility] de Phone Number HISTORICAL RESULTS * (ABNORMAL) Blood glucose (11/09/2015 4:40 PM SUPERVISOR ROVING) Glucose, POC, bld 330(H) 70 - 140 mg/dl HISTORICAL RESULTS Blood specimen (specimen) 11/09/2015 4:40 PM SUPERVISOR ROVING Adeola Chen MD LAB BLOOD ORDERABLES Final R esult Performing Organization Address [facility] de Phone Number HISTORICAL RESULTS * (ABNORMAL) Blood glucose (11/09/2015 12:02 PM SUPERVISOR ROVING) Glucose, POC, bld 257(H) 70 - 140 mg/dl HISTORICAL RESULTS Blood specimen (specimen) 11/09/2015 12:02 PM SUPERVISOR ROVING Adeola Chen MD LAB BLOOD ORDERABLES Final R esult Performing Organization Address [facility] de Phone Number HISTORICAL RESULTS * Blood glucose (11/09/2015 9:22 AM SUPERVISOR ROVING) Glucose, POC, bld 124 70 - 140 mg/dl HISTORICAL RESULTS Blood specimen (specimen) 11/09/2015 9:22 AM SUPERVISOR ROVING Adeola Chen MD LAB BLOOD ORDERABLES Final R esult HISTORICAL RESULTS * XR Spine 1 VW (11/09/2015 9:05 AM SUPERVISOR ROVING) Anatomical Region Laterality Modality Spine N/A Radiographic [place] 11/09/2015 9:05 AM SUPERVISOR ROVING Narrative 11/09/2015 5:35 PM SUPERVISOR ROVING Lumbar spine one view 11/09/2015 HISTORY: Lumbar stenosis. COMPARISON: Earlier localization view the same day. With retractors now in place, posterior screws have been placed within L3, L4 and L5. ??Alignment is unchanged. IMPRESSION: New hardware placed. CO/tab Edited by: Paulina Blackman Electronically signed by: Joana Estrada M.D. Radiologist: JOANA ESTRADA ?? Attending: ??ADEOLA CHEN M.D. Requesting: ADEOLA CHEN M.D. Requesting Fax: ?? Requesting ID: [id number] Attending Fax: ?? Attending ID: ?? [id number] Completed Time: ?? 11/09/2015 09:05 AM Dictated Time: ?11/09/2015 4:18 PM Transcribed Time: 11/09/2015 5:02 PM Signed by: ?JOANA ESTRADA ?? on 11/09/2015 5:35 PM Report To 1 ID: Report To 1 Name: , Report To 1 FAX: Report To 2 ID: Report To 2 Name: , Report To 2 FAX: Report To 3 ID: Report To 3 Name: , Report To 3 FAX: NextGen Order #: Procedure Note Provider, MD Yasmeen - 01/09/2017 Lumbar spine one view 11/09/2015 HISTORY: Lumbar stenosis. COMPARISON: Earlier localization view the same day. With retractors now in place, posterior screws have been placed within L3, L4 and L5. Alignment is unchanged. IMPRESSION: New hardware placed. CO/tab Edited by: Paulina Blackman Electronically signed by: Joana Estrada M.D. Radiologist: JOANA ESTRADA Attending: ADEOLA CHEN M.D. Requesting: ADEOLA CHEN M.D. Requesting Requesting ID: [id number] Attending Attending ID: [id number] Completed Time: 11/09/2015 09:05 AM Dictated Time: 11/09/2015 4:18 PM Transcribed Time: 11/09/2015 5:02 PM Signed by: JOANA ESTRADA on 11/09/2015 5:35 PM Report To 1 ID: Report To 1 Name: , Report To 1 FAX: Report To 2 ID: Report To 2 Name: , Report To 2 FAX: Report To 3 ID: Report To 3 Name: , Report To 3 FAX: NextGen Order #: us Historical Provider MD MORALES XR PROCEDURES Final R esult * XR Spine 1 VW (11/09/2015 8:20 AM SUPERVISOR ROVING) Anatomical Region Laterality Modality Spine N/A Radiographic [place] 11/09/2015 8:20 AM SUPERVISOR ROVING Narrative 11/09/2015 5:35 PM SUPERVISOR ROVING Lumbar single view 11/09/2015 HISTORY: Lumbar stenosis, intraoperative localization. COMPARISON: 10/26/2015 lumbar radiographs. A crosstable lateral view at 8:19 AM demonstrates lap pad markers and surgical instrumentation directed between the facets of L3-L4. IMPRESSION: Intraoperative localization view. CO/tab Edited by: Paulina Blackman Electronically signed by: Joana Estrada M.D. Radiologist: JOANA ESTRADA ?? Attending: ??ADEOLA CHEN M.D. Requesting: ADEOLA CHEN M.D. Requesting Fax: ?? Requesting ID: [id number] Attending Fax: ?? Attending ID: ?? [id number] Completed Time: ?? 11/09/2015 08:20 AM Dictated Time: ?11/09/2015 4:17 PM Transcribed Time: 11/09/2015 5:00 PM Signed by: ?JOANA ESTRADA ?? on 11/09/2015 5:35 PM Report To 1 ID: Report To 1 Name: , Report To 1 FAX: Report To 2 ID: Report To 2 Name: , Report To 2 FAX: Report To 3 ID: Report To 3 Name: , Report To 3 FAX: NextGen Order #: Procedure Note Provider, Yasmeen, - 01/09/2017 Lumbar single view 11/09/2015 HISTORY: Lumbar stenosis, intraoperative localization. COMPARISON: 10/26/2015 lumbar radiographs. A crosstable lateral view at 8:19 AM demonstrates lap pad markers and surgical instrumentation directed between the facets of L3-L4. IMPRESSION: Intraoperative localization view. CO/tab Edited by: Paulina Blackman Electronically signed by: Joana Estrada M.D. Radiologist: JOANA ESTRADA Attending: ADEOLA CHEN M.D. Requesting: ADEOLA CHEN M.D. Requesting Requesting ID: [id number] Attending Attending ID: [id number] Completed Time: 11/09/2015 08:20 AM Dictated Time: 11/09/2015 4:17 PM Transcribed Time: 11/09/2015 5:00 PM Signed by: JOANA ESTRADA on 11/09/2015 5:35 PM Report To 1 ID: Report To 1 Name: , Report To 1 FAX: Report To 2 ID: Report To 2 Name: , Report To 2 FAX: Report To 3 ID: Report To 3 Name: , Report To 3 FAX: NextGen Order #: us Historical Provider IMG XR PROCEDURES Final R esult * Blood glucose (11/09/2015 6:25 AM SUPERVISOR ROVING) Glucose, POC, bld 111 70 - 140 mg/dl HISTORICAL RESULTS Blood specimen (specimen) 11/09/2015 6:25 AM SUPERVISOR ROVING Adeola Chen MD LAB BLOOD ORDERABLES Final R esult HISTORICAL RESULTS documented in this encounter Visit Diagnoses Diagnosis Spinal stenosis of lumbar region Acute kidney failure (HCC) Acute kidney failure, unspecified Spondylolisthesis of lumbar region Hyperlipidemia Other and unspecified hyperlipidemia Essential (primary) hypertension Unspecified essential hypertension Gastro-esophageal reflux disease without esophagitis Obstructive sleep apnea Obstructive sleep apnea (adult) (pediatric) Type 2 diabetes mellitus without complications (CMS/HCC) (HCC) Allergy status to penicillin documented in this encounter
--- OUTSIDE RECORDS SUMMARY | 2024-08-25 17:02 | XMS_ITS | Encounter Summary ---
Author Organization [facility] Facility Care Team Providers Care Agricultural Purchasing Agent Name Role Phone Unavailable Primary Care Provider Unavailabl e Encounter Details Date Type Department Care Team (Latest Contact Info) Description 02/05/2016 9:12 AM CDT - 02/05/2016 11:59 PM CDT Hospital Encounter [facility] Adeola Chen MD [address] [place] [id number] Postlaminectomy syndrome, not elsewhere classified Social History Tobacco Use Types Packs/Day Years Used Date Smoking Tobacco: Never Assessed Sex and Gender Information Value Date Recorded Sex Assigned at Not on file 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 Gender Identity Not on file Sexual Orientation Not on file documented as of this encounter Plan of Treatment Not on file documented as of this encounter Procedures Procedure Name Priority Date/Time Associated Diagnosis Comments XR SPINE LUMBAR 2 OR 3 VIEWS Routine 02/05/2016 9:41 AM CDT documented in this encounter Results * XR Spine Lumbar 2 or 3 Views (02/05/2016 9:41 AM CDT) Anatomical Region Laterality Modality Spine N/A Radiographic Clover ging 02/05/2016 9:41 AM CDT Narrative 02/05/2016 2:39 PM CDT Lumbar spine, 02/05/2016 HISTORY: Low back pain, postlaminectomy syndrome, prior fusion COMPARISON: 12/24/2015 3 views lumbar spine demonstrate stable alignment status post posterior L3-L5 fusion. L3 and L4 laminectomies of the performed. There could be minimal lucency around the right L3 screw which is more prominent compared with 12/24/2059. SI joints appear symmetric. Clips are seen in the pelvis. Atherosclerotic calcifications are prominent. IMPRESSION: Alignment and findings similar compared with the prior study, some minimal lucency questioned around the right L3 screw. This report was generated using voice recognition and self correction software. ??Variances may occur. ??Please call [phone] during business hours with any concerns or questions. Electronically signed by: Shantell Estrada M.D. Radiologist: SHANTELL ESTRADA ?? Attending: ??ADEOLA CHEN M.D. Requesting: ADEOLA CHEN M.D. Requesting Fax: ?? Requesting ID: [id number] Attending Fax: ?? Attending ID: ?? [id number] Completed Time: ?? 02/05/2016 09:41 AM Dictated Time: ?02/05/2016 2:39 PM Transcribed Time: 02/05/2016 2:39 PM Signed by: ?SHANTELL ESTRADA ?? on 02/05/2016 2:39 PM Report To 1 ID: Report To 1 Name: , Report To 1 FAX: Report To 2 ID: Report To 2 Name: , Report To 2 FAX: Report To 3 ID: Report To 3 Name: , Report To 3 FAX: NextGen Order #: Procedure Note Provider, MD Yasmeen - 01/09/2017 Lumbar spine, 02/05/2016 HISTORY: Low back pain, postlaminectomy syndrome, prior fusion COMPARISON: 12/24/2015 3 views lumbar spine demonstrate stable alignment status post posterior L3-L5 fusion. L3 and L4 laminectomies of the performed. There could be minimal lucency around the right L3 screw which is more prominent compared with 12/24/2059. SI joints appear symmetric. Clips are seen in the pelvis. Atherosclerotic calcifications are prominent. IMPRESSION: Alignment and findings similar compared with the prior study, some minimal lucency questioned around the right L3 screw. This report was generated using voice recognition and self correction software. Variances may occur. Please call [phone] during business hours with any concerns or questions. Electronically signed by: Shantell Estrada M.D. Radiologist: SHANTELL ESTRADA Attending: ADEOLA CHEN M.D. Requesting: ADEOLA CHEN M.D. Requesting Requesting ID: [id number] Attending Attending ID: [id number] Completed Time: 02/05/2016 09:41 AM Dictated Time: 02/05/2016 2:39 PM Transcribed Time: 02/05/2016 2:39 PM Signed by: SHANTELL ESTRADA on 02/05/2016 2:39 PM Report To 1 ID: Report To 1 Name: , Report To 1 FAX: Report To 2 ID: Report To 2 Name: , Report To 2 FAX: Report To 3 ID: Report To 3 Name: , Report To 3 FAX: NextGen Order #: Historical Provider MD MORALES XR PROCEDURES Final R esult documented in this encounter Visit Diagnoses Diagnosis Postlaminectomy syndrome, not elsewhere classified documented in this encounter
--- OUTSIDE RECORDS SUMMARY | 2024-08-25 17:02 | XMS_ITS | Encounter Summary ---
Author Organization [facility] Address [address] [place] [address] Care Team Providers Care Medical Driver Name Role Phone Beck Benites MD Primary Care Provider [phone] Reason for Referral * (Routine) - Closed Specialty Diagnoses / Procedures Referred By Contac t Referred To Contact Diagnoses Preoperative testing Procedures ECG 12 lead [facility] [address] [place] [address] Phone: tel: fax: [facility] [address] [place] [address] Referral ID Status Reason Start Date Expiration Date Visits Re quested Visits Authorized [id number] Closed 09/05/2019 03/16/2021 1 1 ORIC PRESERVATIONIST Reason for Visit * (Routine) - Closed Specialty Diagnoses / Procedures Referred By Contac t Referred To Contact Diagnoses Preoperative testing Procedures ECG 12 lead [facility] [address] [place] [address] Phone: tel: fax: [facility] [address] [place] [address] Referral ID Status Reason Start Date Expiration Date Visits Re quested Visits Authorized [id number] Closed 09/05/2019 03/16/2021 1 1 Encounter Details Date Type Department Care Team (Latest Contact Info) Description 09/05/2019 10:12 AM HISTORIC PRESERVATIONIST - 09/05/2019 11:59 PM HISTORIC PRESERVATIONIST Hospital Encounter [facility] Cardiac Testing [address] [place] [id number] Don Estrella MD [address] [facility] [address] [place] [address] [facility] [address] [place] [address] Preoperative testing Discharge Disposition: Discharge to home or self care Social History Tobacco Use Types Packs/Day Years Used Date Smoking Tobacco: Former Cigarettes 1 - 09/05/1995 Smokeless Tobacco: Never Alcohol Use Standard Drinks/Week Comments Yes 2 (1 standard drink = 0.6 oz pur e alcohol) occassionally Sex and Gender Information Value Date Recorded Sex Assigned at Not on file 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 Sex 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 Gender Identity Not on file Sexual Orientation [...] skin once a week Takes on Thursday HYDROcodone-aceta minophen (NORCO) 5-325 mg per tabletIndications :Pain Take 1 tablet by mouth every 6 (six) hours as needed 0 oxyCODONE-acetami nophen (PERCOCET) 5-325 mg per tabletIndications :Pain Take 1-2 tablets by mouth every 4 (four) hours as needed for pain 30 tablet 09/20/2019 0 aspirin 81 mg enteric coated tablet Take 81 mg by mouth daily with dinner 0 documented as of this encounter Discharge Disposition Disposition Code Departure Means Destination Discharge to home or self care documented in this encounter Plan of Treatment Not on file documented as of this encounter Procedures Procedure Name Priority Date/Time Associated Diagnosis Comments ECG 12-LEAD Routine 09/05/2019 11:10 AM HISTORIC PRESERVATIONIST Preoperative testing documented in this encounter Results * ECG 12 lead (09/05/2019 11:10 AM HISTORIC PRESERVATIONIST) 09/05/2019 10:2 8 AM HISTORIC PRESERVATIONIST Narrative [facility] - 09/05/2019 11:18 AM HISTORIC PRESERVATIONIST Vent Rate: 68 bpm RR Interval: 878 msec [place] Interval: 190 msec QRS Duration: 151 msec QT Interval: 431 msec QTC Interval: 448 msec P-R-T Clymer: -10 - 2 - -9 degrees SINUS RHYTHM INDETERMINATE AXIS RIGHT BUNDLE BRANCH BLOCK ABNORMAL ECG Electronically Signed By: Campbell W Schwarze DO FACC us Jolene HODGES ECG ORDERABLES Final Re sult [facility] documented in this encounter Visit Diagnoses Diagnosis Preoperative testing Unspecified pre-operative examination documented in this encounter Care Teams Medical Driver Relationship Specialty Start Date End Date Beck Benites MD [address] [address] PCP - General 11/06/16 documented as of this encounter
--- OUTSIDE RECORDS SUMMARY | 2024-08-25 17:02 | XMS_ITS | Encounter Summary ---
Author Organization [facility] Facility Care Team Providers Care Senior Project Coordinator Name Role Phone Unavailable Primary Care Provider Unavailabl e Encounter Details Date Type Department Care Team (Latest Contact Info) Description 04/02/2016 9:29 AM CDT - 04/02/2016 11:59 PM CDT Hospital Encounter [facility] Adeola Chen MD [address] [place] [id number] Postlaminectomy syndrome, not elsewhere classified Social History Tobacco Use Types Packs/Day Years Used Date Smoking Tobacco: Never Assessed Sex and Gender Information Value Date Recorded Sex Assigned at Not on file 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 Gender Identity Not on file Sexual Orientation Not on file documented as of this encounter Plan of Treatment Not on file documented as of this encounter Procedures Procedure Name Priority Date/Time Associated Diagnosis Comments XR SPINE LUMBAR 2 OR 3 VIEWS Routine 04/02/2016 10:02 AM CDT documented in this encounter Results * XR Spine Lumbar 2 or 3 Views (04/02/2016 10:02 AM CDT) Anatomical Region Laterality Modality Spine N/A Radiographic Clover ging 04/02/2016 10:0 2 AM CDT Narrative 04/02/2016 3:34 PM CDT EXAM: Lumbar spine radiographic series 2-3 views CLINICAL HISTORY: Lumbar spine surgery 11/09/2015; postlaminectomy syndrome; follow-up COMPARISON: 02/05/2016 FINDINGS: AP, lateral, and magnified lumbosacral lateral images were submitted. Posterior instrumented fusion spans L3-L5. ??Hardware construct is unchanged in position and alignment. ??Minimal lucency surrounding the bilateral L3 and L5 pedicle screws is unchanged. Laminectomies have been performed at L3-L4 and L4-L5. There is trace retrolisthesis of L2 on L3, similar to prior. There is no evidence of acute fracture. Surgical clips overlie the pelvis. ??Multiple gas-filled loops of small bowel are seen throughout the abdomen. IMPRESSION: 1. ??Posterior instrument fusion spans L3-L5 with similar hardware alignment. 2. ??Unchanged appearance of minimal lucency surrounding L3 and L5 pedicle screws. Electronically signed by: Joe Joe MD Radiologist: JOE JOE ?? Attending: ??ADEOLA CHEN M.D. Requesting: ADEOLA CHEN M.D. Requesting Fax: ?? Requesting ID: [id number] Attending Fax: ?? Attending ID: ?? [id number] Completed Time: ?? 04/02/2016 10:02 AM Dictated Time: ?04/02/2016 3:34 PM Transcribed Time: 04/02/2016 3:34 PM Signed by: ?JOE JOE ?? on 04/02/2016 3:34 PM Report To 1 ID: Report To 1 Name: , Report To 1 FAX: Report To 2 ID: Report To 2 Name: , Report To 2 FAX: Report To 3 ID: Report To 3 Name: , Report To 3 FAX: NextGen Order #: Procedure Note Provider, MD Yasmeen - 01/09/2017 EXAM: Lumbar spine radiographic series 2-3 views CLINICAL HISTORY: Lumbar spine surgery 11/09/2015; postlaminectomy syndrome; follow-up COMPARISON: 02/05/2016 FINDINGS: AP, lateral, and magnified lumbosacral lateral images were submitted. Posterior instrumented fusion spans L3-L5. Hardware construct is unchanged in position and alignment. Minimal lucency surrounding the bilateral L3 and L5 pedicle screws is unchanged. Laminectomies have been performed at L3-L4 and L4-L5. There is trace retrolisthesis of L2 on L3, similar to prior. There is no evidence of acute fracture. Surgical clips overlie the pelvis. Multiple gas-filled loops of small bowel are seen throughout the abdomen. IMPRESSION: 1. Posterior instrument fusion spans L3-L5 with similar hardware alignment. 2. Unchanged appearance of minimal lucency surrounding L3 and L5 pedicle screws. Electronically signed by: Joe Joe MD Radiologist: JOE JOE Attending: ADEOLA CHEN M.D. Requesting: ADEOLA CHEN M.D. Requesting Requesting ID: [id number] Attending Attending ID: [id number] Completed Time: 04/02/2016 10:02 AM Dictated Time: 04/02/2016 3:34 PM Transcribed Time: 04/02/2016 3:34 PM Signed by: JOE JOE on 04/02/2016 3:34 PM Report To 1 ID: Report To [...]
--- OUTSIDE RECORDS SUMMARY | 2024-08-25 17:02 | XMS_ITS | Encounter Summary ---
Author Organization [facility] Healthcare Address [address] [place] [address] Care Team Providers Care Director Of Graduate Admissions Name Role Phone Beck Benites MD Primary Care Provider [phone] Encounter Details Date Type Department Care Team (Late st Contact Info) Description 09/19/2019 8:26 AM FUR POLISHER Anesthesia Event [facility] Operating Room [address] [place] [address] Warren Hull MD [address] [place] [address] Eden Tang, EVENT SPECIALIST [address] [facility] [place] [address] Anesthesia Record Procedure Summary Procedure Name Responsible Anesthesiologist Anesthesia Start Time Anesthesia Stop Time L2-3 Posterior Spinal Decompressive Laminectomy and Fusion with Hardware Revision L4-5 (Back) Warren Hull MD 09/19/19 0826 09/19/19 1227 Events Date Time Event Comment 09/19/2019 0809 0826 An Start 0829 In Room 0830 An Start Data 0833 An Induction The patient was reevaluated immediately before moderate or deep sedation use and before anesthesia induction. 0837 An Intubation 0837 Anesthesia Ready 0907 Proc Start 0908 Incision Start 1208 Proc Fin 1214 An Extubation 1216 an stop data 1216 Out of Room 1227 Handoff to RN I completed my handoff to the receiving nurse during which we: 1. Patient identified 2. Responsible provider identified 3. Pertinent medical history reviewed 4. Procedure type and surgical course discussed 5. Intraoperative anesthetic management and any significant issues discussed 6. Expectations and concerns for postop period discussed 7. Questions solicited from receiving nurse 8. Patient disposition at the time of handoff: PACU 1227 An Stop 1324 Release from care Meds Name Total midazolam 1 mg fentaNYL 150 mcg lidocaine (CARDIAC) syringe 2 % 5 mL propofol 150 mg propofol 1,216.7 mg succinylcholine 140 mg rocuronium 65 mg phenylephrine syringe 100 mcg/ml 1,000 m cg glycopyrrolate 0.4 mg neostigmine 3 mg ondansetron 4 mg dexamethasone 4 mg/ml 6 mg lidocaine infusion 8 mg/mL D5W (premix) 447.18 mg phenylephrine (LIYAH-SYNEPHRIN E) 10,000 mcg in sodium chloride 0.9% 250 mL (40 mcg/mL) infusion 1.21 mg Lactated Ringer's (LR) infusion 1,600 mL * Agents Name O2 Air Sevoflurane Inspired Sevoflurane * Blood No blood administrations on file. Lines, Drains, and Airways Type Details Placement Removal Peripheral IV Placement Date: 09/19/19; Placement Time: 0722; Catheter Size: 18 G; Orientation: Left; Location: Hand; Site Prep: Chlorhexidine; Inserted by: Suzy Puente RN; Insertion Attempts: 1; Patient Tolerance: Tolerated well; Removal Date: 09/20/19; Removal Time: 0700 (done on administrative receptionist--?time) 09/19/19 0722 by Suzy Puente RN 09/20/19 0700 by Keila Oconnor RN ETT Placement Date: 09/19/19; Placement Time: 0838 (created via procedure documentation); Mask Ventilation: 1; Technique: Video laryngoscopy; Type: ETT - single; Single Lumen Tube Size: 8 mm; Cuffed: Yes; Blade Size: 4; Location: Oral; Insertion Attempts: 1; Placement Verification: Auscultation, Capnometry; Removal Date: 09/19/19; Removal Time: 1214 09/19/19 0838 by Eden Tang CRNA 09/19/19 1214 by Eden Tang CRNA Urethral Catheter Placement Date: 09/19/19; Placement Time: 0844; Inserted by: Sarah Landa RN; Type: Latex; Size: 16 Fr.; Balloon Size: 10 mL; Urine Returned: Yes; Removal Date: 09/20/19; Removal Time: 0640; Removal Reason: Per protocol 09/19/19 0844 by Danie Landa RN 09/20/19 0640 by Yessica Purcell RN RETIRED Surgical Site 09/19/19; 0916; Ba ck; 08/09/24 (Retired LDA, Removed/Completed by [employer] with LDA Utility); 1213 (Retired LDA, Removed/Completed by [employer] with LDA Utility) 09/19/19 0916 by Danie Landa RN 08/09/24 1213 by Discharge Provider, Automatic Peripheral IV Placement Date: 09/19/19; Placement Time: 0937; Catheter Size: 18 G; Orientation: Right; Location: Hand; Site Prep: Chlorhexidine; Technique: Anatomical landmarks; Inserted by: Eden Tang; Insertion Attempts: 1; Removal Date: 09/20/19; Removal Time: 1110; Removal Reason: Discharge 09/19/19 0937 by Eden Tang CRNA 09/20/19 1110 by Keila Oconnor RN Closed/Suction/Open Drain 09/19/19; 1132; No; 1; Back; Accordion; 10 Fr.; Per protocol (done by Nurse Practioner) 09/19/19 1132 by Raquel Lester RN 09/20/19 1215 by Keila Oconnor RN documented in this encounter Social History Tobacco Use Types Packs/Day Years Used Date Smoking Tobacco: Former Cigarettes 0.1 8 1 - 09/05/1995 Smokeless Tobacco: Never Alcohol Use Standard Drinks/Week Comments Yes 2 (1 standard drink = 0.6 oz pur e alcohol) occassionally Sex and Gender Information Value Date Recorded Sex Assigned at Not on file Legal Sex Male 4:01 AM FUR POLISHER Gender Identity Not on file Sexual Orientation Not on file documented as of this encounter OR Notes * Anesthesia Postprocedure Evaluation - Warren Hull MD - 09/19/2019 1:24 PM CST Patient: Wilmer Bowling Procedure Summary Date: 09/19/19 Room / Location: [facility] / [facility] Anesthesia Start: 825 Anesthesia Stop: 122 Procedure: L2-3 Posterior Spinal Decompressive Laminectomy and Fusion with Hardware Revision L4-5 (N/A Back) Diagnosis: Spinal stenosis, lumbar region, with neurogenic claudication (Spinal stenosis, lumbar region, with neurogenic claudication [M48.062]) Surgeon: Don Estrella MD Responsible Provider: Warren Hull MD Anesthesia Type: general ASA Status: 3 Anesthesia Type: general Last vitals BP 109/64 Pulse 74 Temp 36.3 ??C (97.3 ??F) (Temporal) Resp 25 SpO2 95% Anesthesia Post Evaluation Patient location during evaluation: PACU Patient participation: complete - patient participated Level of consciousness: follows simple commands and fully awake Pain score: 2 Pain management: adequate Airway patency: adequate Anesthetic complications: no Cardiovascular status: acceptable and hemodynamically stable Respiratory status: acceptable Hydration status: acceptable Pt is: normothermic Nausea/Vomiting status: none POLISHER * Anesthesia Procedure Notes - Eden Tang CRNA - 09/19/2019 8:45 AM FUR POLISHER Associated Order(s): Airway Airway Patient location: OR Urgency: elective Date/time: 09/19/2019 8:38 AM Indications for airway management: anesthesia Difficult airway: no Staff: Supervising provider: Ebony Robbins MD Placed by: EVENT SPECIALIST: Eden Tang CRNA Emergent airway documentation: Risks and benefits discussed: yes Consent obtained: yes Consent given by: patient Airway prep: Preoxygenated: yes Patient position: sniffing Mask difficulty assessment: 1 - vent by mask Sedation level during airway: GA Final airway details: Final airway type: endotracheal airway Tube type: ETT ETT size: 8.0 mm Cuffed: yes Technique used for successful ETT placement: video laryngoscopy Devices/Methods used in placement: intubating stylet Insertion site: oral Video blade type: Bettencourt Blade size: 4 Cormack-Lehane (video): grade I - full view of glottis Cuff volume: 9 mL Cuff inflated with: air ETT to teeth: 22 cm Placement verified by: auscultation and CO2 detection Airway secured with: silk tape Number of attempts: 1 POLISHER * Anesthesia Preprocedure Evaluation - Ebony Robbins MD - 09/05/2019 9:06 AM CST Images from the original note were not included. Anesthesia Evaluation Wilmer Bowling is a 79 y.o. male with a history of low back and left greater than right leg pain who [facility] preoperative evaluation of L2-3 Decompressive LAMINECTOMY / FUSION with Hardware Revision L4-5 with Don Estrella MD on 09/19/2019. Procedure(s): L2-3 Decompressive LAMINECTOMY / FUSION with Hardware Revision L4-5 Pre-Op Diagnosis Codes: * Spinal stenosis, lumbar region, with neurogenic claudication [M48.062] HISTORY Past Medical History Information obtained from: patient and chart. Neurological Neuro/Psych system: negative Cardiovascular + Hypertension + Hyperlipidemia Respiratory + Sleep apnea (MARK) Prescribed device: CPAP and PAP compliant. Pertinent negatives: COPD; asthma and non-smoker Hepatic / Heme Hepatic/Heme system: negative Gastrointestinal GI system: negative Renal / Renal/ system: negative Musculoskeletal/Pain Musculoskeletal/Pain system: negative Endocrine / Other + Diabetes mellitus - Diabetes type 2. Diabetic complications: neuropathy. Outpatient insulin use: none. Pt reported low glucose range is 98. Pt reported high glucose range is 150. + Cancer history- s/p radiation, s/p chemo and in remission. Cancer type: Prostate cancer s/p prostatectomy, chemo, radiation. Functional Capacity Functional capacity: 6-10 METs Review of Systems + numbness/tingling (Bilateral feet) Pertinent negatives: productive cough; wheezing; SOB; recent cold/flu; fever; chest pain; dentures/partials and chipped/loose teeth Past Medical History: Diagnosis Date ??? Diabetes (CMS/HCC) ??? Hearing loss Hearing aid ??? HTN (hypertension) ??? Hyperlipidemia ??? Prostate cancer (CMS/HCC) ??? Sleep apnea ??? Spinal stenosis Past Surgical History: Procedure Laterality Date ??? NE ARTHRODESIS ANT INTERBODY MIN DISCECTOMY,LUMBAR Lumbar Vertebral Fusion - (Added by TW Conv) ??? PROSTATECTOMY Allergies Allergen Reactions ??? Penicillins Other (See comments) Reaction: feet, hands swell, Reaction was immediate, reaction was 50 years ago Med List Status: Nurse Complete Set By: Judith Mercado RN at 09/05/2019 9:29 AM Taking? Last Dose Start Date End Date Provider ascorbic acid, vitamin C, (VITAMIN C) 500 mg CR tablet 09/05/2019 -- -- Historical Provider, aspirin 81 mg enteric coated tablet 09/04/2019 -- -- Historical Provider, cholecalciferol (VITAMIN D-3) 2000 unit capsule 09/05/2019 -- -- Historical Provider, coenzyme Q10 100 mg capsule 09/05/2019 -- -- Historical Provider, cyanocobalamin (Vitamin B-12) 1,000 mcg tablet 09/05/2019 -- -- Historical Provider, dulaglutide (TRULICITY) 1.5 mg/0.5 mL pen injector Past Week -- -- Historical Provider, DULoxetine DR (CYMBALTA) 60 mg capsule 09/05/2019 -- -- Historical Provider, empagliflozin (JARDIANCE) 25 mg tablet 09/05/2019 -- -- Historical Provider, famotidine (PEPCID) oral suspension 40 mg/5 mL Past Week -- -- Historical Provider, glipiZIDE (GLUCOTROL) 10 mg tablet 09/05/2019 -- -- Historical Provider, HYDROcodone-acetaminophen (NORCO) 5-325 mg per tablet 09/05/2019 -- -- Historical Provider, lisinopril (PRINIVIL,ZESTRIL) 40 mg tablet 09/05/2019 -- -- Historical Provider, metFORMIN (GLUCOPHAGE) 500 mg tablet 09/04/2019 -- -- Historical Provider, omeprazole (PriLOSEC) 20 mg capsule 09/05/2019 -- -- Historical Provider, simvastatin (ZOCOR) 40 mg tablet 09/04/2019 -- -- Historical Provider, vitamin E (vitamin E) 400 unit capsule 09/05/2019 -- -- Historical Provider, Current Outpatient Medications: ??? ascorbic acid, vitamin C, (VITAMIN C) 500 mg CR tablet ??? aspirin 81 mg enteric coated tablet ??? cholecalciferol (VITAMIN D-3) 2000 unit capsule ??? coenzyme Q10 100 mg capsule ??? cyanocobalamin (Vitamin B-12) 1,000 mcg tablet ??? dulaglutide (TRULICITY) 1.5 mg/0.5 mL pen injector ??? DULoxetine DR (CYMBALTA) 60 mg capsule ??? empagliflozin (JARDIANCE) 25 mg tablet ??? famotidine (PEPCID) oral suspension 40 mg/5 mL ??? glipiZIDE (GLUCOTROL) 10 mg tablet ??? HYDROcodone-acetaminophen (NORCO) 5-325 mg per tablet ??? lisinopril (PRINIVIL,ZESTRIL) 40 mg tablet ??? metFORMIN (GLUCOPHAGE) 500 mg tablet ??? omeprazole (PriLOSEC) 20 mg capsule ??? simvastatin (ZOCOR) 40 mg tablet ??? vitamin E (vitamin E) 400 unit capsule Social History Tobacco Use Smoking Status Former Smoker ??? Years: 8.00 ??? Types: Cigarettes ??? Last attempt to quit: 09/05/1995 ??? Years since quittin.0 Smokeless Tobacco Never Used Substance and Sexual Activity Alcohol Use Yes ??? Alcohol/week: 2.0 standard drinks ??? Types: 2 Standard drinks or equivalent per week Comment: occassionally Substance and Sexual Activity Drug Use Never Family History Problem Relation Age of Onset ??? Diabetes Father Family history of diabetes mellitus - (Added by TW Conv) ??? Heart disease Father Family history of cardiac disorder - (Added by TW Conv) ??? Stroke Father Family history of cerebrovascular accident (CVA) - (Added by TW Conv) ??? Cancer Father Family history of cancer - (Added by TW Conv) ??? Cancer Mother Family history of cancer - (Added by TW Conv) PAT Physical Exam Airway Exam: Mallampati: II Cervical ROM: FROM TM distance: 3.5 Cardiovascular Exam: Rate: regular Rhythm: regular Negative for Murmur Pulmonary Exam: LCTA, bilat Wheezing negative EENT Exam: trachea midline Dental Exam: Appears intact Skin Exam: Skin is warm and dry. Abdominal exam: Abdomen is soft. Bowel sounds are present. Current state: Patient's current state is cooperative and interactive. Additional comments: Bilateral lower extremity strength 5/5 Push/pulls strong and equal Sensation intact bilaterally Vitals: 09/05/19 0917 BP: 137/63 Pulse: 89 SpO2: 95% EKG: Type & Screen: A positive Sukumar negative Vitamin D: 43 Hgb A1C: 09/05/2019: 6.9 %* CBC RBC: 09/05/2019: 4.75 M/cumm RDW: No results found for requested labs within last 720 hours. MCHC: 09/05/2019: 31.5 g/dL* MCH: 09/05/2019: 28.6 pg MCV: 09/05/2019: 90.9 fL Hct: 09/05/2019: 43.2 % Hgb: 09/05/2019: 13.6 g/dL WBC: 09/05/2019: 6.2 K/cumm MPV: 09/05/2019: 10.7 fL Platelets: 09/05/2019: 234 K/cumm RDW CV: 09/05/2019: 13.0 % RDW Sd: 09/05/2019: 43.4 fL BMP Glucose: 09/05/2019: 110 mg/dL Calcium: 09/05/2019: 9.0 mg/dL Sodium: 09/05/2019: 143 mmol/L Potassium: 09/05/2019: 3.9 mmol/L CO2: 09/05/2019: 28 mmol/L Chloride: 09/05/2019: 104 mmol/L BUN: 09/05/2019: 16 mg/dL Creatinine: 09/05/2019: 0.68 mg/dL* Labs ordered per anesthesia guidelines Labs reviewed and results within anesthesia guidelines ASSESSMENT Pre-Op Diagnosis Codes: * Spinal stenosis, lumbar region, with neurogenic claudication [M48.062] PLAN This is a 79 y.o. male with one clinical risk factors per ACC/AHA guidelines -DM with moderate functional capacity for a(n) intermediate risk procedure. The patient declined the offer of a second provider in the room during the exam. Pre- procedure instructions were reviewed with the patient. All questions were answered. A copy of the instructions was provided to the patient. SEC evaluation complete. DOS Physical Exam Medical history, medications, and allergies reviewed. Attestation: This PAT evaluation 09/19/2019. Airway Exam: Mallampati: II Cervical ROM: FROM TM distance: >4 Jaw ROM: full Cardiovascular Exam: Rate: regular Rhythm: regular Dental Exam: Appears intact Current state: Patient's current state is cooperative. Anesthesia Plan ASA 3 My patient is approved for the Anesthesia Controlled Medication protocol when under care of a EVENT SPECIALIST Planned anesthesia: General Team communication plan: oral ET tube Induction: Induction: intravenous. Postoperative Plan: Postoperative administration opioids intended. No postoperative mechanical ventilation intended. Patient's planned disposition post procedure is Floor. Informed Consent: Discussed plan with EVENT SPECIALIST. Anesthesia plan and risks discussed with patient. Consent and Attending signature: I and/or my designee have discussed the anesthesia plan, benefits, possible alternatives, parental presence at time of induction (if indicated), and clinically relevant risks that may include dental injury, unintentional awareness, and/or other complications. The patient and/or parent/legal guardian understand, and agree to proceed. All questions answered. POLISHER POLISHER documented in this encounter Plan of Treatment Not on file documented as of this encounter Procedures Procedure Name Priority Date/Time Associated Diagnosis Comments NE AN PROCEDURE PLACEHOLDER Routine 09/19/2019 8:45 AM FUR POLISHER NE AN ELECTIVE ENDOTRACHEAL AIRWAY Routine 09/19/2019 8:45 AM FUR POLISHER documented in this encounter Results * NE AN ELECTIVE ENDOTRACHEAL AIRWAY, NE AN PROCEDURE PLACEHOLDER (09/19/2019 8:45 AM FUR POLISHER) Narrative Eden Tang CRNA - 09/19/2019 8:45 AM FUR POLISHER Eden Tang CRNA ? 09/19/2019 ??8:45 AM Airway Patient location: OR Urgency: elective Date/time: 09/19/2019 8:38 AM Indications for airway management: anesthesia Difficult airway: no Staff: Supervising provider: Ebony Robbins MD Placed by: EVENT SPECIALIST: Eden Tang CRNA Emergent airway documentation: Risks and benefits discussed: yes Consent obtained: yes Consent given by: patient Airway prep: Preoxygenated: yes Patient position: sniffing Mask difficulty assessment: 1 - vent by mask Sedation level during airway: GA Final airway details: Final airway type: endotracheal airway Tube type: ETT ETT size: 8.0 mm Cuffed: yes Technique used for successful ETT placement: video laryngoscopy Devices/Methods used in placement: intubating stylet Insertion site: oral Video blade type: Bettencourt Blade size: 4 Cormack-Lehane (video): grade I - full view of glottis Cuff volume: 9 mL Cuff inflated with: air ETT to teeth: 22 cm Placement verified by: auscultation and CO2 detection Airway secured with: silk tape Number of attempts: 1 us Ebony Robbins MD ANESTHESIA ORDERABLES Final R esult documented in this encounter Visit Diagnoses Not on filedocumented in this encounter Administered Medications Inactive Administered Medications - up to 3 most recent administrations Medication Order MAR Action Action Date Dose Rate Site dexAMETHasone (DECADRON) 4 mg/mL injection intravenous, Administer over 2 Minutes, As needed, Starting on Thu09/19/19 at 0936, Anesthesia Intra-op Given 09/19/2019 9:36 AM FUR POLISHER 6 mg fentaNYL (SUBLIMAZE) preservative free injection intravenous, As needed, Starting on Thu09/19/19 at 0826, Anesthesia Intra-op Given 09/19/2019 11:47 AM FUR POLISHER 50 mcg Given 09/19/2019 8:31 AM FUR POLISHER 50 mcg Given 09/19/2019 8:26 AM FUR POLISHER 50 mcg glycopyrrolate (ROBINUL) injection intravenous, Administer over 1 Minutes, As needed, Starting on Thu09/19/19 at 1140, Anesthesia Intra-op Given 09/19/2019 11:40 AM FUR POLISHER 0.4 mg Lactated Ringer's (LR) infusion 30 mL/hr, intravenous, Continuous, Starting on Thu09/19/19 at 0715 New Bag 09/19/2019 9:54 AM FUR POLISHER New Bag 09/19/2019 7:28 AM FUR POLISHER 30 mL/hr 30 mL/hr lidocaine (cardiac) (XYLOCAINE) preservative free injection intravenous, As needed, Starting on Thu09/19/19 at 0833, Anesthesia Intra-op, Indications: Ventricular ArrhythmiasIndications:Ve ntricular Arrhythmias Given 09/19/2019 8:33 AM FUR POLISHER 5 mL lidocaine in dextrose 5% 2 g/250 mL (8 mg/mL) infusion (premix) Continuous PRN, Starting on Thu09/19/19 at 0852, Anesthesia Intra-op Rate/Dose Change 09/19/2019 11:33 AM FUR POLISHER 1.5 mg/kg/hr 13.26 mL/hr Rate/Dose Change 09/19/2019 10:23 AM FUR POLISHER 2 mg/kg/hr 17.68 mL/hr Rate/Dose Change 09/19/2019 9:36 AM FUR POLISHER 1.5 mg/kg/hr 13.26 mL/hr midazolam (VERSED) preservative free injection intravenous, Administer over 2 Minutes, As needed, Starting on Thu09/19/19 at 0826, Anesthesia Intra-op Given 09/19/2019 8:26 AM FUR POLISHER 1 mg neostigmine injection intravenous, Administer over 3 Minutes, As needed, Starting on Thu09/19/19 at 1140, Anesthesia Intra-op Given 09/19/2019 11:40 AM FUR POLISHER 3 mg ondansetron (ZOFRAN) injection intravenous, Administer over 2 Minutes, As needed, Starting on Thu09/19/19 at 1144, Anesthesia Intra-op Given 09/19/2019 11:44 AM FUR POLISHER 4 mg phenylephrine (LIYAH-SYNEPHRINE) 1 mg/10 mL (100 mcg/mL) in sodium chloride 0.9% (premix) intravenous, As needed, Starting on Thu09/19/19 at 0908, Anesthesia Intra-op Given 09/19/2019 9:51 AM FUR POLISHER 100 mcg Given 09/19/2019 9:48 AM FUR POLISHER 200 mcg Given 09/19/2019 9:37 AM FUR POLISHER 200 mcg phenylephrine (LIYAH-SYNEPHRINE) 10,000 mcg in sodium chloride 0.9% 250 mL (40 mcg/mL) infusion Continuous PRN, Starting on Thu09/19/19 at 1000, Anesthesia Intra-op Rate/Dose Change 09/19/2019 10:28 AM FUR POLISHER 0.1 mcg/kg/min 13.8 mL/hr New Bag 09/19/2019 10:00 AM FUR POLISHER 0.2 mcg/kg/min 27.6 mL/ hr propofol (DIPRIVAN) IV intravenous, As needed, Starting on Thu09/19/19 at 0833, Anesthesia Intra-op Given 09/19/2019 8:33 AM FUR POLISHER 150 mg propofol (DIPRIVAN) IV Continuous PRN, Starting on Thu09/19/19 at 0848, Anesthesia Intra-op Rate/Dose Change 09/19/2019 9:25 AM FUR POLISHER 75 mcg/kg/min 41.4 mL/hr New Bag 09/19/2019 8:48 AM FUR POLISHER 100 mcg/kg/min 55.2 mL/h r rocuronium (ZEMURON) injection intravenous, As needed, Starting on Thu09/19/19 at 0844, Anesthesia Intra-op Given 09/19/2019 9:53 AM FUR POLISHER 15 mg Given 09/19/2019 8:44 AM FUR POLISHER 50 mg succinylcholine (ANECTINE) injection intravenous, As needed, Starting on Thu09/19/19 at 0833, Anesthesia Intra-op Given 09/19/2019 8:33 AM FUR POLISHER 140 mg documented in this encounter Care Teams Director Of Graduate Admissions Relationship Specialty Start Date End Date Beck Benites MD [address] [address] PCP - General 11/06/16 documented as of this encounter
--- OUTSIDE RECORDS SUMMARY | 2024-08-25 17:02 | XMS_ITS | Encounter Summary ---
Author Organization [facility] Care Team Providers Care Insulation Packer Name Role Phone Unavailable Primary Care Provider Unavailabl e Encounter Details Date Type Department Care Team (Latest Contact Info) Description 10/06/2016 9:58 AM SEISMIC SURVEY ASSISTANT - 10/06/2016 11:59 PM SEISMIC SURVEY ASSISTANT Hospital Encounter [facility] Jose M Bruce MD [address] [place] [address] Other chronic pain; Low back pain; Postlaminectomy syndrome, not elsewhere classified; Sacroiliitis, not elsewhere classified (CMS/HCC); Allergy status to penicillin Social History Tobacco Use Types Packs/Day Years Used Date Smoking Tobacco: Never Sex and Gender Information Value Date Recorded Sex Assigned at Not on file Legal Sex Male 4:01 AM SEISMIC SURVEY ASSISTANT Gender Identity Not on file Sexual Orientation Not on file documented as of this encounter Plan of Treatment Not on file documented as of this encounter Visit Diagnoses Diagnosis Other chronic pain Low back pain Lumbago Postlaminectomy syndrome, not elsewhere classified Sacroiliitis, not elsewhere classified (HCC) Sacroiliitis, not elsewhere classified Allergy status to penicillin documented in this encounter
--- OUTSIDE RECORDS SUMMARY | 2024-08-25 17:02 | XMS_ITS | Encounter Summary ---
Author Organization [facility] Facility Care Team Providers Care Associate Merchant Name Role Phone Unavailable Primary Care Provider Unavailabl e Encounter Details Date Type Department Care Team (Latest Contact Info) Description 12/24/2015 9:05 AM CDT - 12/24/2015 11:59 PM CDT Hospital Encounter [facility] Adeola Chen MD [address] [place] [id number] Postlaminectomy syndrome, not elsewhere classified Social History Tobacco Use Types Packs/Day Years Used Date Smoking Tobacco: Never Assessed Sex and Gender Information Value Date Recorded Sex Assigned at Not on file 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 Gender Identity Not on file Sexual Orientation Not on file documented as of this encounter Plan of Treatment Not on file documented as of this encounter Procedures Procedure Name Priority Date/Time Associated Diagnosis Comments XR SPINE LUMBAR 2 OR 3 VIEWS Routine 12/24/2015 10:21 AM CDT documented in this encounter Results * XR Spine Lumbar 2 or 3 Views (12/24/2015 10:21 AM CDT) Anatomical Region Laterality Modality Spine N/A Radiographic Clover ging 12/24/2015 10:2 1 AM CDT Narrative 12/24/2015 1:18 PM CDT EXAM: ??Three-view lumbar spine radiograph 12/24/2015 HISTORY: ??Status post dorsal fusion 6 weeks ago. Follow-up. COMPARISON: ??Intraoperative lateral lumbar spine radiograph 11/09/2015 FINDINGS: Bilateral transpedicle screw and shayan fixation at L3-L5 is again noted. Laminectomy defect is seen at L3 and L4. Postoperative changes appear normal. Posterior lateral bone is identified. Vertebral body alignment is stable. Trace retrolisthesis of L2 on L3 is present. There is degenerative spondylosis at all levels. There are calcifications scattered throughout the abdominal aorta. IMPRESSION: Stable postoperative changes and vertebral body alignment Edited by: ROSANNA JUAREZ Electronically signed by: Fransisco Calabrese M.D. Radiologist: FRANSISCO CALABRESE M.D. ?? Attending: ??ADEOLA CHEN M.D. Requesting: ADEOLA CHEN M.D. Requesting Fax: ?? Requesting ID: [id number] Attending Fax: ?? Attending ID: ?? [id number] Completed Time: ?? 12/24/2015 10:21 AM Dictated Time: ?12/24/2015 12:28 AM Transcribed Time: 12/24/2015 12:49 AM Signed by: ?FRANSISCO CALABRESE ??Иван on 12/24/2015 1:18 PM Report To 1 ID: Report To 1 Name: , Report To 1 FAX: Report To 2 ID: Report To 2 Name: , Report To 2 FAX: Report To 3 ID: Report To 3 Name: , Report To 3 FAX: NextGen Order #: Procedure Note Provider, MD Yasmeen - 01/09/2017 EXAM: Three-view lumbar spine radiograph 12/24/2015 HISTORY: Status post dorsal fusion 6 weeks ago. Follow-up. COMPARISON: Intraoperative lateral lumbar spine radiograph 11/09/2015 FINDINGS: Bilateral transpedicle screw and shayan fixation at L3-L5 is again noted. Laminectomy defect is seen at L3 and L4. Postoperative changes appear normal. Posterior lateral bone is identified. Vertebral body alignment is stable. Trace retrolisthesis of L2 on L3 is present. There is degenerative spondylosis at all levels. There are calcifications scattered throughout the abdominal aorta. IMPRESSION: Stable postoperative changes and vertebral body alignment Edited by: ROSANNA JUAREZ Electronically signed by: Fransisco Calabrese M.D. Radiologist: FRANSISCO CALABRESE M.D. Attending: ADEOLA CHEN M.D. Requesting: ADEOLA CHEN M.D. Requesting Requesting ID: [id number] Attending Attending ID: [id number] Completed Time: 12/24/2015 10:21 AM Dictated Time: 12/24/2015 12:28 AM Transcribed Time: 12/24/2015 12:49 AM Signed by: FRANSISCO CALABRESE M.D. on 12/24/2015 1:18 PM Report To 1 ID: Report To [...]
--- OUTSIDE RECORDS SUMMARY | 2024-08-25 17:02 | XMS_ITS | Encounter Summary ---
Author Organization [facility] Facility Care Team Providers Care Thinner Sprayer Name Role Phone Unavailable Primary Care Provider Unavailabl e Encounter Details Date Type Department Care Team (Latest Contact Info) Description 10/26/2015 12:02 PM CLAIMS ASSISTANT - 10/26/2015 11:59 PM CLAIMS ASSISTANT Hospital Encounter [facility] Adeola Chen MD [address] [place] [id number] Spinal stenosis of lumbar region Social History Tobacco Use Types Packs/Day Years Used Date Smoking Tobacco: Never Assessed Sex and Gender Information Value Date Recorded Sex Assigned at Not on file Legal Sex Male 4:01 AM CLAIMS ASSISTANT Gender Identity Not on file Sexual Orientation Not on file documented as of this encounter Plan of Treatment Not on file documented as of this encounter Procedures Procedure Name Priority Date/Time Associated Diagnosis Comments BLOOD ANTIGEN TYPING 1 Routine 6 5:05 PM CLAIMS ASSISTANT BLOOD INDIRECT AB SCREEN Routine 016 5:04 PM CLAIMS ASSISTANT XR SPINE LUMBAR 2 OR 3 VIEWS Routine 10/26/2015 2:12 PM CLAIMS ASSISTANT SERUM 25-HYDROXYCHOLECALCIFEROL (VITAMIN D) Routine 10/26/2015 1:40 PM CLAIMS ASSISTANT BLOOD ABO, RH, INDIRECT AB SCREEN Routine 10/26/2015 7:43 AM CLAIMS ASSISTANT PLASMA BASIC METABOLIC PANEL Routine 10/26/2015 7:31 AM CLAIMS ASSISTANT BLOOD CELL COUNT (CBC), MORPHOLOGIC EXAM Routine 10/26/2015 7:31 AM CLAIMS ASSISTANT ELECTROCARDIOGRAPHY (ECG) 10/26/2015 DISCHARGE LABORATORY CUMULATIVE REPORT 10/26/2015 documented in this encounter Results * Blood antigen typing 1 (10/26/2015 5:05 PM CLAIMS ASSISTANT) RBC phenotyping, Carlie ag Negative HISTORICAL RESULTS Blood specimen (specimen) 10/26/2015 5:05 PM CLAIMS ASSISTANT Adeola Chen MD LAB [facility]LOOD [facility] Performing Organization Address [facility] de Phone Number HISTORICAL RESULTS * Blood indirect ab screen (10/26/2015 5:04 PM CLAIMS ASSISTANT) Pathologist [facility] Antibody identification Anti-K HISTORICAL RESULTS Blood specimen (specimen) 10/26/2015 5:04 PM CLAIMS ASSISTANT Adeola Chen MD LAB BLOOD ORDERABLES Final R esult Performing Organization Address [facility] de Phone Number HISTORICAL RESULTS * XR Spine Lumbar 2 or 3 Views (10/26/2015 2:12 PM CLAIMS ASSISTANT) Anatomical Region Laterality Modality Spine N/A Radiographic Clover ging 10/26/2015 2:12 PM CLAIMS ASSISTANT Narrative 10/29/2015 9:06 AM CLAIMS ASSISTANT Three view lumbar spine radiograph 10/26/2015 HISTORY: Pain in both legs. FINDINGS: 3 views of the lumbar spine show degenerative spondylosis at all levels. There is a kyphosis centered at L1-2 of mild severity. There appears to be mild narrowing of the spinal canal from L1 through L5. There is retrolisthesis measuring 5.6 mm of L3 on L4 and 4.5 mm of L2 on L3. There is disc space narrowing with vacuum disc phenomenon at L2-3 and mild narrowing noted at L1-2. Compression fracture is not seen. There is no focal bone lesion. There is scattered atherosclerotic calcification of the abdominal aorta. Postoperative clips are scattered in the pelvis. IMPRESSION: 1. ??Degenerative changes. LP/tab Edited by: Paulina Blackman Electronically signed by: Fransisco Calabrese M.D. Radiologist: FRANSISCO CALABRESE M.D. ?? Attending: ??ADEOLA CEHN M.D. Requesting: ADEOLA CHEN M.D. Requesting Fax: ?? Requesting ID: [id number] Attending Fax: ?? Attending ID: ?? [id number] Completed Time: ?? 10/26/2015 2:12 PM Dictated Time: ?10/26/2015 4:34 PM Transcribed Time: 10/26/2015 4:46 PM Signed by: ?FRANSISCO CALABRESE ??Иван on 10/29/2015 09:06 AM Report To 1 ID: Report To 1 Name: , Report To 1 FAX: Report To 2 ID: Report To 2 Name: , Report To 2 FAX: Report To 3 ID: Report To 3 Name: , Report To 3 FAX: NextGen Order #: Procedure Note Provider, MD Yasmeen - 01/09/2017 Three view lumbar spine radiograph 10/26/2015 HISTORY: Pain in both legs. FINDINGS: 3 views of the lumbar spine show degenerative spondylosis at all levels. There is a kyphosis centered at L1-2 of mild severity. There appears to be mild narrowing of the spinal canal from L1 through L5. There is retrolisthesis measuring 5.6 mm of L3 on L4 and 4.5 mm of L2 on L3. There is disc space narrowing with vacuum disc phenomenon at L2-3 and mild narrowing noted at L1-2. Compression fracture is not seen. There is no focal bone lesion. There is scattered atherosclerotic calcification of the abdominal aorta. Postoperative clips are scattered in the pelvis. IMPRESSION: 1. Degenerative changes. LP/tab Edited by: Paulina Blackman Electronically signed by: Fransisco Calabrese M.D. Radiologist: FRANSISCO CALABRESE M.D. Attending: ADEOLA CHEN M.D. Requesting: ADEOLA CHEN M.D. Requesting Requesting ID: [id number] Attending Attending ID: [id number] Completed Time: 10/26/2015 2:12 PM Dictated Time: 10/26/2015 4:34 PM Transcribed Time: 10/26/2015 4:46 PM Signed by: FRANSISCO CALABRESE M.D. on 10/29/2015 09:06 AM Report To 1 ID: Report To 1 Name: , Report To 1 FAX: Report To 2 ID: Report To 2 Name: , Report To 2 FAX: Report To 3 ID: Report To 3 Name: , Report To 3 FAX: NextGen Order #: us Historical Provider IMJt XR PROCEDURES Final R esult * Serum 25-hydroxycholecalciferol (vitamin D) (10/26/2015 1:40 PM CLAIMS ASSISTANT) 25-OH Vit D 41 30 - 100 ng/ml HISTORICAL RESULTS Serum 10/26/2015 1:40 PM CLAIMS ASSISTANT us Adeola Chen MD LAB BLOOD ORDERABLES Final R esult HISTORICAL RESULTS * Blood ABO, Rh, indirect ab screen (10/26/2015 7:43 AM CLAIMS ASSISTANT) ABO typing A HISTORICA L RESULTS Rho(D) typing Positive HISTOR ICAL RESULTS Sukumar, indirect Positive HISTORICAL RESULTS Blood specimen (specimen) 10/26/2015 7:43 AM CLAIMS ASSISTANT Narrative HISTORICAL RESULTS - 10/26/2015 9:06 AM CLAIMS ASSISTANT NTSP DOS: ??11/09/15 NT/ANESTHESIOLOGIST PHYSICIAN DOS 11/09/15 Adeola Chen MD LAB BLOOD ORDERABLES Final R esult HISTORICAL RESULTS * (ABNORMAL) Blood cell count (CBC), morphologic exam (10/26/2015 7:31 AM CLAIMS ASSISTANT) WBC 8.8 4.5 - 11.0 K/cumm HISTORICAL RESULTS RBC 5.04 4.50 - 6.20 M/cumm HISTORICAL RESULTS Hgb 14.4 13.0 - 17.0 g/dl HISTORICAL RESULTS Hct 43.5 39.0 - 52.0 % HISTORICAL RESULTS MCV 86.4 80.0 - 100.0 fl HISTORICAL RESULTS MCH 28.7 27.0 - 33.0 pg HISTORICAL RESULTS MCHC 33.2 32.0 - 36.0 g/dl HISTORICAL RESULTS Rdw 13.0 11.5 - 14.5 % HISTORICAL RESULTS Platelets 227 140 - 400 K/cumm HISTORICAL RESULTS MPV 9.3 7.4 - 10.4 fl HISTORICAL RESULTS Neutrophils 63.3 42.0 - 75.0 % HISTORICAL RESULTS Lymphocytes 22.8 21.0 - 51.0 % HISTORICAL RESULTS Monos 10.1(H) 2.0 - 9.0 % HISTORICAL RESULTS Eosinophils 3.3 0.0 - 10.0 % HISTORICAL RESULTS Basophils 0.5 0.0 - 1.0 % HISTORICAL RESULTS Neutrophils, abs 5.6 1.8 - 7.7 K/cumm HISTORICAL RESULTS Lymphocytes, abs 2.0 1.0 - 4.8 K/cumm HISTORICAL RESULTS Monocytes, absolute 0.9(H) 0.0 - 0.8 K/cumm HISTORICAL RESULTS Eosinophils, abs 0.3 0.0 - 0.5 K/cumm HISTORICAL RESULTS Basophils, abs 0.0 0.0 - 0.2 K/cumm HISTORICAL RESULTS Blood specimen (specimen) 10/26/2015 7:31 AM CLAIMS ASSISTANT Narrative HISTORICAL RESULTS - 10/26/2015 8:05 AM CLAIMS ASSISTANT NTSP DOS: ??11/09/15 Adeola Chen MD LAB BLOOD ORDERABLES Final R esult HISTORICAL RESULTS * Plasma basic metabolic panel (10/26/2015 7:31 AM CLAIMS ASSISTANT) Sodium 138 136 - 146 mmol/L HISTORICAL RESULTS K, pl 4.7 3.3 - 4.9 mmol/L HISTORICAL RESULTS Chloride 101 98 - 108 mmol/L HISTORICAL RESULTS CO2 29 22 - 33 mmol/L HISTORICAL RESULTS BUN 14 7 - 18 mg/dl HISTORICAL RESULTS Glucose 103 70 - 140 mg/dl HISTORICAL RESULTS Comment: Glucose is assumed to be non-fasting. ?? Fasting Glucose normal ranges are: 0 days - 2 months: ? 40 mg/dL - 100 mg/dL 2 months - 999 years: ?70 mg/dL - 99 mg/dL Creatinine 0.99 0.50 - 1.50 mg/dl HISTORICAL RESULTS eGFR >60 ml/min/1.7 3 m2 HISTORICAL RESULTS Comment: GFR Reference Range: = > 60 mL/min/1.73 m2 This result has been calculated assuming the patient is Non-. ??If the patient is , please multiply this result by 1.21. The GFR value is not recommended for medication dose adjustment for renal function, creatinine clearance values should be used. Calcium 9.0 8.5 - 10.5 mg/dl HISTORICAL RESULTS Plasma 10/26/2015 7:31 AM CLAIMS ASSISTANT Narrative HISTORICAL RESULTS - 10/26/2015 8:22 AM CLAIMS ASSISTANT NTSP DOS: ??11/09/15 Adeola Chen MD LAB BLOOD ORDERABLES Final R esult HISTORICAL RESULTS * DISCHARGE LABORATORY CUMULATIVE REPORT (10/26/2015) Narrative 10/26/2015 Ordered by an unspecified provider. Historical Provider LAB BLOOD ORDERABLES Erica l Result * ELECTROCARDIOGRAPHY (ECG) (10/26/2015) Narrative 10/26/2015 Ordered by an unspecified provider. Historical Provider ECG ORDERABLES Final Res ult documented in this encounter Visit Diagnoses Diagnosis Spinal stenosis of lumbar region documented in this encounter
--- OUTSIDE RECORDS SUMMARY | 2024-08-25 17:02 | XMS_ITS | Encounter Summary ---
Author Organization [facility] Healthcare Address [address] [place] [address] Care Team Providers Care Curriculum Supervisor Name Role Phone Beck Benites MD Primary Care Provider [phone] Reason for Referral * Diagnostic Imaging (Routine) - Closed Specialty Diagnoses / Procedures Referred By Nina love Referred To Contact Radiology Diagnoses Malignant neoplasm of prostate (HCC) Procedures PET/CT FACBC Skull to Thigh Miscellaneous, Not In File [address] [address] Referral ID Status Reason Start Date Expiration Date Visits Re quested Visits Authorized [id number] Closed 11/22/2018 06/02/2020 2 2 Reason for Visit * Diagnostic Imaging (Routine) - Closed Specialty Diagnoses / Procedures Referred By Nina love Referred To Contact Radiology Diagnoses Malignant neoplasm of prostate (HCC) Procedures PET/CT FACBC Skull to Thigh Miscellaneous, Not In File [address] [address] Referral ID Status Reason Start Date Expiration Date Visits Re quested Visits Authorized [id number] Closed 11/22/2018 06/02/2020 2 2 Encounter Details Date Type Department Care Team (Late st Contact Info) Description 01/14/2019 1:06 PM CDT - 01/14/2019 11:59 PM CDT Hospital Encounter [facility] [address] [place] [address] Miscellaneous, Not In File Unknown, Notinfile Malignant neoplasm of prostate (CMS/HCC) Discharge Disposition: Discharge to home or self care Social History Tobacco Use Types Packs/Day Years Used Date Smoking Tobacco: Never Sex and Gender Information Value Date Recorded Sex Assigned at Not on file 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 Gender Identity Not on file Sexual Orientation Not on file documented as of this encounter Discharge Disposition Disposition Code Departure Means Destination Discharge to home or self care documented in this encounter Plan of Treatment Not on file documented as of this encounter Procedures Procedure Name Priority Date/Time Associated Diagnosis Comments PET/CT FACBC SKULL TO THIGH Schedule Routine, Read Routine (OP Routine) 01/14/2019 3:25 PM CDT Malignant neoplasm of prostate (CMS/HCC) documented in this encounter Results * PET/CT FACBC Skull to Thigh (01/14/2019 3:25 PM CDT) Anatomical Region Laterality Modality N/A Positron Emissio n Tomography (PET) 01/14/2019 3:46 PM CDT Impressions 01/14/2019 4:03 PM CDT No PET/CT evidence of recurrent prostate cancer. Dictated by: Helen Stacy M.D. The radiology attending physician has personally reviewed this study, and had reviewed and/or edited this written report and agrees with it. Electronically signed by: Esteban Bermudez M.D. Narrative 01/14/2019 4:03 PM CDT EXAMINATION: ??FLUCICLOVINE-PET/CT IMAGING DATE OF STUDY: 01/14/2019 SCANNER: mCT RADIOPHARMACEUTICAL: ??11.8 mCi F-18 fluciclovine (FACBC) ??i.v. Injection site: Right antecubital fossa HISTORY: 78-year-old man with prostate cancer, status post radical prostatectomy in 2004, now with recent PSA, most recently 0.5 ng/mL. The study is requested for restaging of documented biochemically recurrent prostate cancer. Subsequent treatment strategy. TECHNIQUE: ??After intravenous administration of FACBC, noncontrast CT images were obtained for attenuation correction and for fusion with emission PET images to allow for anatomical localization of PET findings. ??Emission PET images were then obtained. ??The study was interpreted on the [employer] workstation. ?? Scanned area: skull base to the proximal thighs; the time from injection to start of imaging for this scan position was 3 minutes. COMPARISON: No comparison imaging is available. FINDINGS: ??No focus of increased tracer uptake is seen to identify site of biochemically recurrent prostate cancer. ?? Additional CT findings: There is thickening of the right maxillary sinus is noted. ??Atherosclerotic calcifications are noted in the coronary arteries. ??Atherosclerotic ossifications are seen within the aorta and its branches. ??A splenule is noted. ??Postoperative changes from radical prostatectomy and lymphadenectomy are noted. Postoperative changes from posterior instrument spinal fusion and posterior decompression from L3 to L5 are noted. ??A bone island is noted in the left iliac bone. ??Mild bibasilar atelectasis is seen. Procedure Note Esteban Bermudez MD - 01/14/2019 EXAMINATION: FLUCICLOVINE-PET/CT IMAGING DATE OF STUDY: 01/14/2019 SCANNER: mCT RADIOPHARMACEUTICAL: 11.8 mCi F-18 fluciclovine (FACBC) i.v. Injection site: Right antecubital fossa HISTORY: 78-year-old man with prostate cancer, status post radical prostatectomy in 2004, now with recent PSA, most recently 0.5 ng/mL. The study is requested for restaging of documented biochemically recurrent prostate cancer. Subsequent treatment strategy. TECHNIQUE: After intravenous administration of FACBC, noncontrast CT images were obtained for attenuation correction and for fusion with emission PET images to allow for anatomical localization of PET findings. Emission PET images were then obtained. The study was interpreted on the [employer] workstation. Scanned area: skull base to the proximal thighs; the time from injection to start of imaging for this scan position was 3 minutes. COMPARISON: No comparison imaging is available. FINDINGS: No focus of increased tracer uptake is seen to identify site of biochemically recurrent prostate cancer. Additional CT findings: There is thickening of the right maxillary sinus is noted. Atherosclerotic calcifications are noted in the coronary arteries. Atherosclerotic ossifications are seen within the aorta and its branches. A splenule is noted. Postoperative changes from radical prostatectomy and lymphadenectomy are noted. Postoperative changes from posterior instrument spinal fusion and posterior decompression from L3 to L5 are noted. A bone island is noted in the left iliac bone. Mild bibasilar atelectasis is seen. IMPRESSION: No PET/CT evidence of recurrent prostate cancer. Dictated by: Helen Stacy M.D. The radiology attending physician has personally reviewed this study, and had reviewed and/or edited this written report and agrees with it. Electronically signed by: Esteban Bermudez M.D. us Not In File Miscellaneous IMG PET PROCEDURES Fin al Result documented in this encounter Visit Diagnoses Diagnosis Malignant neoplasm of prostate (HCC) Malignant neoplasm of prostate documented in this encounter Administered Medications Inactive Administered Medications - up to 3 most recent administrations Medication Order MAR Action Action Date Dose Rate Site fluciclovine f-18 10 millicurie 10 millicurie, intravenous, Once in imaging, radiopharmaceutical , Starting on Thu01/14/19 at 1432, For 1 dose Given 01/14/2019 2:56 PM CDT 11.83 millicuries Right Antecubital documented in this encounter Orders Medications Ordered That Ervin ht Not Have Been Administered Count Last Ordered Date First Ordered Date fluciclovine f-18 10 millicurie 1 9 documented in this encounter Care Teams Curriculum Supervisor Relationship Specialty Start Date End Date Beck Benites MD [address] [address] PCP - General 11/06/16 documented as of this encounter
--- OUTSIDE RECORDS SUMMARY | 2024-08-25 17:02 | XMS_ITS | Encounter Summary ---
Author Organization [facility] Address [address] [place] [address] Phone Care Team Providers Care Sales Department Supervisor Name Role Phone Beck Benites MD Primary Care Provider [phone] Encounter Details Date Type Department Care Team (Late st Contact Info) Description 09/22/2019 Plan of Care Documentation [facility] [address] [place] [address] Social History Tobacco Use Types Packs/Day Years Used Date Smoking Tobacco: Former Cigarettes 0.1 8 1 - 09/05/1995 Smokeless Tobacco: Never Alcohol Use Standard Drinks/Week Comments Yes 2 (1 standard drink = 0.6 oz pur e alcohol) occassionally Sex and Gender Information Value Date Recorded Sex Assigned at Not on file 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
--- OUTSIDE RECORDS SUMMARY | 2024-08-25 17:06 | XMS_ITS | Clinical Summary ---
Author Organization [facility] Address [address] [place] [address] Care Team Providers Care Management Professor Name Role Phone Unavailable Primary Care Provider Unavailabl e Source Comments [facility],non-owned Affiliates and Associated Physician Practices is amultiple site organization consisting of ambulatory clinics and hospital sitesin [place] and [place]. This disclosure is being madepursuant to the Care Everywhere program and may not contain all information available regarding this patient. Last updated 18.[facility] [employer] Allergies Active Allergy Reactions Criticality Noted Date Comments Penicillins 06/09/2017 Immunizations Name Administration Dates Next Due INFLUENZA VACCINE, HIGH-DOSE , QUADR. (FLUZONE HIGH-DOSE QUADRIVALENT; 65Y+), 0.7 ML (HD-[id number]) 06/09/2017 Social History Tobacco Use Types Packs/Day Years Used Date Smoking Tobacco: Never Assessed Sex and Gender Information Value Date Recorded Sex Assigned at Not on file Gender Identity Not on file Sexual Orientation Not on file Plan of Treatment Health Maintenance Due Date Last Done Comments MEDICARE AWV ? 12 MONTHS 1941 DTAP/TDAP/TD VACCINES (1 - Tdap) 1960 ZOSTER VACCINE (1 of 2) 1991 PNEUMOCOCCAL VACCINE 65+ (1 of 1 - PCV) 2006 Respiratory Syncytial Virus (RSV) Vaccine Pt: or over 60 yrs (1 - 1-dose 75+ series) 2016 DEPRESSION SCREENING 09/07/2023 COVID-19 VACCINE ( - 2023-2 5 season) 2024 INFLUENZA VACCINE (#1) 2024 06/09/2017 HEPATITIS B VACCINE Aged Out No longe r eligible based on patient's age to complete this topic HIB VACCINE Aged Out No longer eligi ble based on patient's age to complete this topic HPV VACCINE Aged Out No longer eligi ble based on patient's age to complete this topic MENINGOCOCCAL VACCINE Aged Out No amado smitha eligible based on patient's age to complete this topic
--- OUTSIDE RECORDS SUMMARY | 2024-08-25 17:06 | XMS_ITS | Continuity of Care Document ---
Author Organization [facility] Address [address] [place] [address] Phone Care Team Providers Care Epic Cupid Specialists Name Role Phone Palm OD, Roel Unavailable Unavailable Procedures Procedure Date Eye Exam & Treatment Refraction Eye Exam & Treatment Eye Exam Established Pt Eye Exam & Treatment Refraction Eye Exam & Treatment Refraction Advance Directives Directive Yes / No Effective Date File Name No Information Encounters Encounter Description Practice Location Reason(s) For Visit Diagnoses Date Provider Providers Copied on Encounter Formerly [facility], [id number] [place] [address] [address], [place], [place], [id number], tel:[phone] [facility] No Information 1-201 0 Palm OD Roel. [address] [facility] , [address], [place], [place], [facility], . tel:[phone] Formerly [facility], [address] [place] [address] [address], [place], [place], [id number], [place] tel:[phone] [facility] No Information 1-200 9 Shaw Meg[place]. [address] [facility] [address], [place], [place], [facility], [place]. tel:[phone] Formerly [facility], [address], [place], [place], [id number], tel:[phone] [facility] No Information 4200 9 Ginny Long. [address] [facility] [address], [place], [address], [place]. tel:[phone] Formerly [facility], [address], [place], [place], [id number], tel:[phone] [facility] No Information 0200 8 Valeria Cleveland. [address] [facility] , [address], [place], [place], [facility], [place]. tel:[phone] Formerly [facility], [address], [place], [place], [id number], [place] tel:[phone] [facility] No Information 5200 7 Valeria Cleveland. [address] [facility] , [address], [place], [place], [facility], [place]. tel:[phone] Family History Family Member Type Diagnosis Age At Onset No Information Payers Payer name Insurance type Covered democrat ID Capricenabila liuchai(s) [facility] Commercial CI [id number] Social History Type Description Quantity Date Captured Comments Sex Male Smoking Status No Information Chief Complaint And Reason For Visit No Information Reason For Referral Reason For Referral No Information History Of Present Illness Encounter Date Complaint History Of Prese nt Illness No Information Functional Status Date Functional Assessmen t No Information Instructions Date Instruction Additional Infor mation No Information Assessments Type Assessment Date No Information Patient Care Teams Name Effective Dates (start - stop) Status Members No Information
--- OUTSIDE RECORDS SUMMARY | 2024-08-25 17:06 | XMS_ITS | Encounter Summary ---
Author Organization [facility] Address [address] [facility] [place] [place] [address] Care Team Providers Care Residence Manager Name Role Phone Unavailable Primary Care Provider Unavailabl e Reason for Visit * Reason Comments Imm Inj Encounter Details Date Type Department Care Team (Late st Contact Info) Description 06/09/2017 11:20 AM CDT Office Visit [facility] [address] [place] [address] Provider, Sharon Exp Nameoki Need for vaccination (Primary Dx) Social History Tobacco Use Types Packs/Day Years Used Date Smoking Tobacco: Never Assessed Sex and Gender Information Value Date Recorded Sex Assigned at Not on file Gender Identity Not on file Sexual Orientation Not on file documented as of this encounter Patient Instructions * Patient Instructions* Amarilys Allen, HEARING IMPAIRED TEACHER-AGENCY SALES MANAGEMENT ASSISTANT - 06/09/2017 11:05 AM CDT Influenza Vaccine THEATRE INSTRUCTOR: The influenza vaccine is an injection given to help prevent influenza (flu). The flu is caused by avirus. The virus spreads from person to person through coughing and sneezing. Several types of viruses cause the flu. The viruses foreign exchange clerk time, so new vaccines are made each year. The vaccine begins to protect you about 2 weeks after you get it. The flu shot usually injected into your upper arm. It may be given in your thigh. Call 911 for any of the following: ?? Your mouth and throat are swollen. ?? You are wheezing or have trouble breathing. ?? You have chest pain or your heart is beating faster than normal for you. ?? You feel like you are going to faint. Seek care immediately if: ?? Your face is red or swollen. ?? You have hives that spread over your body. ?? You feel weak or dizzy. Contact your healthcare provider if: ?? You have increased pain, redness, or swelling around the area where the shot was given. ?? You have questions or concerns about the influenza vaccine. Types of influenza vaccines: You may get a vaccine with a weak, live, or virus. The vaccine with a live virus can cause mild illness, but it does not cause the flu. When to get the influenza vaccine: The influenza vaccine is offered every year starting in June or July. Get the influenza vaccine as soon as it is available. Children between 6 months and 8 years old need 2 vaccines during the first year they get it. The 2 vaccines should be given 4 or moreweeks apart. It is best if the same type of vaccine is given both times. Who should get the flu shot: ?? Infants 6 months or older ?? Any healthy adult who would like to decrease the risk for the flu ?? Anyone living with or caring for children younger than 5 years ?? Healthcare workers ?? Anyone who lives in a long-term care facility ?? Anyone who has chronic health problems, such as asthma, diabetes, or blood disorders ?? Anyone who has a weak immune system ?? Women who are or will be during the flu season Who should not get the flu shot: ?? Anyone who has an egg allergy should ask the healthcare provider if it is safe to get the flu shot ?? Infants younger than 6 months ?? Anyone who has had an allergic reaction to the flu shot ?? Anyone who is sick or has a fever ?? Anyone who received a diagnosis of Guillain-Steinberg?? syndrome within 6 weeks of getting a flu vaccine ?? Anyone who is allergic to thimerosal (mercury) Risks of the influenza vaccine: The flu shot may cause mild symptoms, such as a fever, headache, and muscle aches. It may also cause mild to moderate soreness or redness at the area where you were given the shot. The nasal spray may cause a fever, runny or stuffy nose, headache, muscle aches, or vomiting. You may still get the flu after you receive the influenza vaccine. If you are allergic to eggs, ask about an egg-free vaccine. You may have an allergic reaction to the vaccine. This can be life-threatening. Follow up with your healthcare provider as directed: Write down your questions so you remember to ask them during your visits. ?? 2016 [employer] Information is for End User's use only and may not be sold, redistributed or otherwise used for commercial purposes. All illustrations and images included in CareNotes?? are the copyrighted property of [employer] or [employer]. The above information is an personal care aide only. It is not intended as medical advice for individual conditions or treatments. Talk to your doctor, nurse or pharmacist before following any medical regimen to see if it is safe and effective for you. documented in this encounter Progress Notes * Amarilys Allen APRN-CNP - 06/09/2017 11:10 AM CDT Patient here for influenza vaccine today. Allergies reviewed. Vaccine consent signed, reviewed withpatient, and scanned into record. Education materials provided to patient. Patient tolerated well. Amarilys Allen APRN, BABY FORMULA WORKER-BC documented in this encounter Plan of Treatment Not on file documented as of this encounter Visit Diagnoses Diagnosis Need for vaccination- Primary Need for prophylactic vaccination and inoculation against unspecified single disease documented in this encounter
--- OUTSIDE RECORDS SUMMARY | 2024-08-25 17:06 | XMS_ITS | Referral Summary ---
Author Organization [facility] Address [address] [place] [address] Care Team Providers Care Antenna Rigger Name Role Phone Unavailable Primary Care Provider Unavailabl e Source Comments [facility],non-owned Affiliates and Associated Physician Practices is amultiple site organization consisting of ambulatory clinics and hospital sitesin [place], [place], [place] and [place]. This disclosure is being madepursuant to the Care Everywhere program and may not contain all information available regarding this patient. Last updated 18.[facility] Allergies Active Allergy Reactions Criticality Noted Date [...] Orientation Not on file Plan of Treatment Not on file
--- OUTSIDE RECORDS SUMMARY | 2024-08-25 17:06 | XMS_ITS | Clinical Summary ---
Author Organization [facility] Address [address] [place] [phone] Care Team Providers Care Supervisor Instrument Maintenance Name Role Phone Unavailable Primary Care Provider Unavailabl e Social History Tobacco Use Types Packs/Day Years Used Date Smoking Tobacco: Never Assessed Sex and Gender Information Value Date Recorded Sex Assigned at Not on file Gender Identity Not on file Sexual Orientation Not on file Plan of Treatment Health Maintenance Due Date Last Done Comments DTAP/TDAP/TD VACCINES (1 - Tdap) 1960 ZOSTER VACCINE (1 of 2) 1991 PNEUMOCOCCAL VACCINE 65+ YEARS (1 of 1 - PCV) 05/29/20 06 RSV VACCINE (60+ or ) (1 - 1-dose 75+ series) 2016 INFLUENZA VACCINE (#1) 2024 06/09/2017
--- OUTSIDE RECORDS SUMMARY | 2024-08-25 17:06 | XMS_ITS | Encounter Summary ---
Author Organization [facility] Address [address] [place] [address] Care Team Providers Care Airline Customer Service Agent Name Role Phone Unavailable Primary Care Provider Unavailabl e Reason for Referral * MRI (Routine) - Closed Specialty Diagnoses / Procedures Referred By Contac t Referred To Contact MRI Diagnoses Prostate cancer Procedures MRI PROSTATE W AND WO CONTR-DYNACAD PROTOCOL Tacos Ramirez MD [address] [place] [phone] Referral ID Status Reason Start Date Expiration Date V isits Requested Visits Authorized [id number] Closed [facility] CTS 12/03/2018 01/03/2020 1 1 Reason for Visit * MRI (Routine) - Closed Specialty Diagnoses / Procedures Referred By Contac t Referred To Contact MRI Diagnoses Prostate cancer Procedures MRI PROSTATE W AND WO CONTR-DYNACAD PROTOCOL Tacos Ramirez MD [address] [place] [phone] Referral ID Status Reason Start Date Expiration Date V isits Requested Visits Authorized [id number] Closed [facility] CTS 12/03/2018 01/03/2020 1 1 Encounter Details Date Type Department Care Team (Late st Contact Info) Description 12/27/2018 12:05 PM CDT - 12/27/2018 11:59 PM CDT Hospital Encounter [facility] MRI [address] [place] [address] Tacos Ramirez MD [address] [place] [phone] Discharge Disposition: Home or Self Care Social History Tobacco Use Types Packs/Day Years Used Date Smoking Tobacco: Never Assessed Sex and Gender Information Value Date Recorded Sex Assigned at Not on file Gender Identity Not on file Sexual Orientation Not on file documented as of this encounter Progress Notes * Donna Clay RT - 12/27/2018 1:26 PM CDT MRI prostate w wo contrast completed and patient given Discharge Instructions. documented in this encounter Miscellaneous Notes * Treatment Plan - Donna Clay RT - 12/27/2018 1:26 PM CDT IMAGING SERVICES- CT, MRI MEDICATION and FLUSH PROTOCOL [facility] ORDERS ARE ENTERED ???PER PROTOCOL?? Enter the protocol in the patient???s electronic health record using Grabbite: .imagingctmriprotocol Communication Orders: o For ordered imaging procedures requiring intravenous access : ??? Initiate a peripheral IV, if not already in place, and discontinue IV prior to discharge (if outpatient). ??? Enter order if needed: Insert Peripheral IV Medication Orders: o Local Anesthetic for use to initiate IV ADULT ??? Lidocaine 4% (L.M.X.4) applied topically ONE TIME prior to IV catheter insertion PRN (L.M.X.4 %should be applied 15 minutes prior to procedure) PEDIATRIC ??? Lidocaine 4% (L.M.X.4) applied topically ONE TIME prior to IV catheter insertion PRN (apply 15 minutes prior to procedure) ??? Sucrose 24%(Tootsweet; Sweet-Ease) oral solution 0.2 mL oral (apply to tongue on pacifier or clean, gloved finger), ONE TIME 2 minutes prior to painful procedure. May repeat dose x1 PRN to complete procedure. o Sodium chloride 0.9% (normal saline) flush 10 mLs PRN for saline lock or medication administration. o For respiratory distress, initiate oxygen and/or increase O2 to maintain saturation greater than 90% PROCEDURE SPECIFIC MEDICATIONS ??? Cystogram (CT Pelvis): Iopamidol (Isovue 300) 61%, 50mL, diluted with 250mL of sterile NS. Inject Isovue into 250mL bag ofNS.. Clamp umana catheter prior to instilling solution via catheter. o Instill up to 300mL of Isovue and NS solution into bladder via catheter, one time. CT ORAL CONTRAST PROTOCOLS FOR ADULTS ??? Use Iohexol (Omnipaque) 240 mg/mL for CT scan unless patient has a documented allergy to contrast dye. ??? If allergy present, use Barium Sulfate (EZ Paque) for procedure. ??? If at any time the Animal Caretaker Supervisor has a question about which option to administer, seek clarification from a Radiologist. o Iohexol (Omnipaque) 240 mg/mL: 50ml added to 960mL of clear liquid of patient???s choice. Preferred route is oral. May use nasoenteric tube if needed. ??? Administer 900mL of the diluted Omnipaque 240, orally, one time only. o Barium Sulfate (EZ Paque /Vanilla Silq) 96% oral suspension: Preferred route is oral. May use nasoenteric tube if needed. ??? Administer 900mL of barium sulfate, orally, one time only. CT ORAL CONTRAST PROTOCOLS FOR PEDIATRICS Pediatrics = up to age 18 o Pediatric Radiologist will approve of one of the following products selected for procedure. ??? Barium Sulfate (EZ Paque) 96% oral suspension: preferred route is oral. May use nasoenteric tube if needed. [place] to 3 months Administer up to 90mL of Barium Sulfate, orally, one time only 4 months to 1 year old Administer up to 240mL of Barium sulfate , Orally, One Time Only 1 year old to 5 years old Administer up to 360mL of Barium sulfate , Orally, One Time Only 5 years old to 10 years old Administer up to 480mL of Barium sulfate , Orally, One Time Only Over 10 years old Administer up to 600mL of Barium sulfate , Orally, One Time Only ??? Iohexol (Omnipaque) 240 mg/mL oral solution ??? Dilute 25mL of iohexol with 480mL of clear liquid of patient???s choice. Administer the dilutedsolution per age as follows: Preferred route is orally. May use nasoenteric tube if needed. ??? Send any remaining diluted Iohexol solution with the pateint???s nurse to CT Administer 45mL of diluted Iohexol oral solution, orally every 30 minutes x 2 doses. 1 month to 1 year old Administer 120mL of diluted Iohexol oral solution, orally every 30 min x 2 doses. 1 year old to 5 years old Administer 180mL of Iohexol orally every 30 min x 2 doses. 5 years old to 10 years old Administer 240mL of Iohexol orally every 30 min x 2 doses. Over 10 years old Administer 300mL of Iohexol orally every 30 min x [address] RECTAL CONTRAST PROTOCOLS ADULTS: o Iohexol (Omnipaque) 240 mg/mL: Dilute 50mL of Omnipaque with 900mL of warm water in an enema bag.Administer the diluted solution rectally via gravity per patient???s tolerance, up to 950mLs, one time only. CT IV CONTRAST PROTOCOLS for ADULT ADULTS: (If patient is less than 55kg and confirm dose with radiologist) o Iopadmidol (Isovue-300): Administer 2.2mL/kg of Iopamidol 61%, intravenously, one time only. o See table below for maximum dose, unless otherwise authorized by radiologist.If exam has been completed before the entire dose has been administered, stop the injection. o If exam not included in table below, contact radiologist for orders. Procedure Maximum Dose CT Head with Contrast Up to [address] Chest with Contrast Up to [address] Maxilofacial with Contrast Up to [address] Soft Tissue Neck with Contrast CT Chest Abdomen Pelvis with Contrast CT Chest Abdomen with Contrast CT Abdomen Pelvis with Contrast CT Pelvis with Contrast CT Angiogram Examinations (all) CT Soft Tissue Neck and Chest Abomen Pelvis with Contrast Up to [address] Soft Tissue Neck and Chest with Contrast CT Urogram with Contrast CT IV CONTRAST PROTOCOLS for PEDIATRICS PEDIATRICS: Use weight based dosing if patient is less than 55kg and confirm dose with radiologist. [place] to 15 years old Administer 2.2mL/kg (to MAX of 80 mL) of Iopamidol (Isovue-300) 61%, intravenously, one time only 15 years old and older Administer 2.2mL/kg (to MAX of 150mL) of Iopamidol (Isovue-300) 61%, intravenously, one time only MRI IV CONTRAST PROTOCOLS ADULTS: o Multihance and Prohance can be used for most MRI scans o For Liver studies, contact Radiologist to determine use of one of the following: o Gadobenate Dimeglumine (Multihance) (0.1mmol/0.2mL), Administer 0.1mmol/kg = 0.2mL/kg up to MAX of 30mL, intravenously, one time only o Gadoteridol (Prohance) (0.1mmol/0.2mL), Administer 0.1mmol/kg = 0.2mL/kg up to MAX of 30mL, intravenously, one time only o Gadoxetate (Eovist) 2.5 mmol/10mL, Administer 0.025mmol/kg = 0.1mL/kg MAX of 15mL, intravenously,one time only PEDIATRICS: o Radiologist to determine need and type of contrast Term neonates up to 2 years: Gadobutrol (Gadavist) 1mmol/mL injection, Administer 0.1mmol/kg = 0.1mL/kg up to MAX of 14mmol = 14mL, intravenously, one time only 2 years and older Gadobenate Dimeglumine (Multihance) (0.1mmol/0.2mL),Administer 0.1mmol/kg = 0.2mL/kg up to MAX of 20mL intravenously, one time only OR Gadoteridol (Prohance) (0.1mmol/0.2mL), Administer 0.1mmol/kg = 0.2mL/kg up to MAX of 20mL, intravenously, one time only Initiati Initi Initiating Department(s): 09/2013 Nuclear Medicine and Pharmacy Reviewed: 06/2014 ,01/2016, 01/2017; 04/2017; 09/2017; 01/2018; 04/2018 Revised: 06/2014, 10/2016, 01/2017; 04/2017; 09/2017; 01/2018; 04/2018 Approved by: Medical Executive Committee, Imaging Services, and Pharmacy & Therapeutics Committee Date: 05/2018 documented in this encounter Plan of Treatment Not on file documented as of this encounter Procedures Procedure Name Priority Date/Time Associated Diagnosis Comments MRI PROSTATE W AND WO CONTR-DYNACAD PROTOCOL Routine 12/27/2018 1:59 PM CDT Prostate cancer POC CREATININE Routine 12/27/2018 1:17 PM CDT EDUCATION MAGNETIC RESONANCE IMAGING (MRI) - MAXINE Routine 12/24/2018 9:35 AM CDT documented in this encounter Results * MRI PROSTATE W AND WO CONTR-DYNACAD PROTOCOL (12/27/2018 1:59 PM CDT) Anatomical Region Laterality Modality Pelvis Magnetic Resonan ce 12/27/2018 1:59 PM CDT Impressions 12/28/2018 10:43 AM CDT IMPRESSION: 1. 7 mm cystic and solid enhancing focus with diffusion restriction at the posterior aspect of the bladder neck. Recommend correlation with cystoscopy. 2. Multiple sclerotic bone lesions, which are indeterminate. Correlate with prior imaging. If none available, bone scan could further assess. PI-RADS 1= Very low (clinically significant cancer is highly unlikely to be present) PI-RADS 2= Low (clinically significant cancer is unlikely to be present) PI-RADS 3= Intermediate (the presence of clinically significant cancer is equivocal) PI-RADS 4= High (clinically significant cancer is likely to be present) PI-RADS 5= Very high (clinically significant cancer is highly likely to be present) DICTATION LOCATION: Location 1 - [facility] 12/28/2018 10:43 AM CDT MRI PROSTATE W AND WO IV CONTR-DYNACAD PROTOCOL DATE: 12/27/2018 1:59 PM CLINICAL INFORMATION: Prostate cancer status post prostatectomy approximately 14 years ago. Now with rising PSA. TECHNIQUE: 3T MRI of the prostate is performed using phased array coil before and after the uneventful administration of 19 ml intravenous gadolinium contrast according to prostate cancer protocol. COMPARISON: None. FINDINGS: Prostate bed: Lymph nodes: No pelvic lymphadenopathy . Osseous structures: 7 mm sclerotic focus in the right pubic bone. 7 mm sclerotic focus in the left pubic bone. 15 mm sclerotic focus in the left iliac bone. Urinary bladder: At the bladder neck posteriorly, there is a cystic and solid lesion that enhances after contrast administration. It measures 7 x 5 x 4.5 mm. Miscellaneous: Fat-containing right inguinal hernia. Procedure Note Trini Demarco MD - 12/28/2018 MRI PROSTATE W AND WO IV CONTR-DYNACAD PROTOCOL DATE: 12/27/2018 1:59 PM CLINICAL INFORMATION: Prostate cancer status post prostatectomy approximately 14 years ago. Now with rising PSA. TECHNIQUE: 3T MRI of the prostate is performed using phased array coil before and after the uneventful administration of 19 ml intravenous gadolinium contrast according to prostate cancer protocol. COMPARISON: None. FINDINGS: Prostate bed: Lymph nodes: No pelvic lymphadenopathy . Osseous structures: 7 mm sclerotic focus in the right pubic bone. 7 mm sclerotic focus in the left pubic bone. 15 mm sclerotic focus in the left iliac bone. Urinary bladder: At the bladder neck posteriorly, there is a cystic and solid lesion that enhances after contrast administration. It measures 7 x 5 x 4.5 mm. Miscellaneous: Fat-containing right inguinal hernia. IMPRESSION: 1. 7 mm cystic and solid enhancing focus with diffusion restriction at the posterior aspect of the bladder neck. Recommend correlation with cystoscopy. 2. Multiple sclerotic bone lesions, which are indeterminate. Correlate with prior imaging. If none available, bone scan could further assess. PI-RADS 1= Very low (clinically significant cancer is highly unlikely to be present) PI-RADS 2= Low (clinically significant cancer is unlikely to be present) PI-RADS 3= Intermediate (the presence of clinically significant cancer is equivocal) PI-RADS 4= High (clinically significant cancer is likely to be present) PI-RADS 5= Very high (clinically significant cancer is highly likely to be present) DICTATION LOCATION: Location 1 - [facility] Tacos Ramirez MD MR ORDERABLES * POC CREATININE (12/27/2018 1:17 PM CDT) CREATININE POC 1.00 0.70 - 1.20 mg/dL 12/27/2018 1:17 PM CDT [facility]OR[facility]ORY SERVICES - . ANTOINE Comment: The GFR result is not clinically significant on patients <18 or >70 years of age. GFR >60 mL/min/1.7 3 sq meter 12/27/2018 1:17 PM CDT [facility] Comment: eGFR has not been validated for use in the elderly (> 70 years of age), women, patients with serious co-morbid conditions, or persons with extremes of body size or muscle mass and should also be interpreted with caution in patients with acute kidney failure, dialysis dependent patients, patients reporting exceptional dietary intake (e.g. vegetarian diet, high protein diets, creatine supplementation), and patients with severe liver disease. Based on National Kidney Disease Education Program If patient is , please refer to the GFR result. GFR, >60 mL/min/1.7 3 sq meter 12/27/2018 1:17 PM CDT [facility] Blood, capillary 12/27/2018 1:17 PM CDT 12/27/2018 1:25 PM CDT Tacos Ramirez MD POINT OF CARE TESTIN [facility]# [id number] [place] [address] * EDUCATION MAGNETIC RESONANCE IMAGING (MRI) - MAXINE (12/24/2018 9:35 AM CDT) Education Name MAGNETIC RESONANCE IMAGING (MRI) MAXINE EDUCATION INTERFACE Education URL [email or web address] MAXINE EDUCATION INTERFACE EDUCATION ACCESS CODE [id number] MAXINE EDUCATION INTERFACE EDUCATION ISSUE DATE Dec 24, 2018 MAXINE EDUCATION INTERFACE EDUCATION START DATE Dec 25, 2018 MAXINE EDUCATION INTERFACE EDUCATION COMPLETED DATE Dec 26, 2018 MAXINE EDUCATION INTERFACE EDUCATION EXPIRATION DATE January 23, 2019 MAXINE EDUCATION INTERFACE EDUCATION MESSAGE EVENT Completed MAXINE EDUCATION INTERFACE 12/24/2018 9:35 AM CDT External Provider [facility] EXTERNAL EDUCATI ON ORDERABLES MAXINE EDUCATION INTERFACE documented in this encounter Visit Diagnoses Diagnosis Prostate cancer Malignant neoplasm of prostate documented in this encounter Administered Medications Inactive Administered Medications - up to 3 most recent administrations Medication Order MAR Action Action Date Dose Rate Site gadobenate dimeglumine (MULTIHANCE) 529 mg/mL (0.1mmol/0.2mL) injection 19 mL 19 mL, IV, INTRA-PROCEDURE ONCE, 1 dose, Starting on Thu12/27/18 at 1318, Until Thu12/27/18 at 1355, Routine Contrast Given 12/27/2018 1:55 PM CDT 19 mL sodium chloride 0.9% infusion IV, at 24 mL/hr, INTRA-PROCEDURE ONCE, 1 dose, Starting on Thu12/27/18 at 1318, Until Thu12/27/18 at 1355, Routine New Bag 12/27/2018 1:55 PM CDT 24 mL 24 mL/ hr sodium chloride flush injection 10 mL 10 mL, IV, ONE TIME ONLY, 1 dose, On Thu12/27/18 at 1330, Routine Given 12/27/2018 1:30 PM CDT 10 mL documented in this encounter
--- OUTSIDE RECORDS SUMMARY | 2024-08-25 17:06 | XMS_ITS | Patient Health Summary ---
Author Organization [facility] Address [address] [place] [address] Care Team Providers Care Public Policy Mediator Name Role Phone Unavailable Primary Care Provider Unavailabl e Note from [facility],non-owned Affiliates and Associated Physician Practices is amultiple site organization consisting of ambulatory clinics and hospital sitesin [place], [place], [place] and [place]. This disclosure is being madepursuant to the Care Everywhere program and may not contain all information available regarding this patient. Last updated 18.[facility] Allergies * Penicillins Immunizations * INFLUENZA VACCINE, HIGH-DOSE, QUADR. (FLUZONE HIGH-DOSE QUADRIVALENT; 65Y+), 0.7 ML (HD-IIV4)(Given 06/09/2017) Social History Tobacco Use Types Packs/Day Years Used Date Smoking Tobacco: Never Assessed Sex and Gender Information Value Date Recorded Sex Assigned at Not on file Gender Identity Not on file Sexual Orientation Not on file
== END 2024-08-21 08:12 | disposition home or self-care (01) ==
PROVIDERS: PCP Family Medicine; Visit Provider Family Medicine
DX: R41.3 Other amnesia (principal); G20.A1 Parkinson's disease without dyskinesia, without mention of fluctuations; I67.82 Cerebral ischemia; G31.9 Degenerative disease of nervous system, unspecified
CPT/HCPCS: 70553; A9577

== ENCOUNTER 2024-12-20 19:36 | Emergency (ER) | payer MEDICARE, SELFPAY ==
--- NOTE | ~2024-12-20 | CT_ITS ---
CT head without contrast Indication: Status post fall Technique: Serial scans were obtained through the brain without the administration of contrast. Dose reduction technique was used on this scan by utilizing automated exposure control and iterative recon struction technique. The dose-length product (DLP) was 681.00 mGy-cm. Findings: There is no evidence of intracranial hemorrhage, mass lesion, or acute infarct. The ventri cles and subarachnoid spaces are dilated, consistent with mild to moderate atrophy. Low attenuation regions are seen within the periventricular white matter bilaterally, likely representing changes fro m chronic microvascular ischemic disease. There is no evidence of edema, mass effect or midline shif t. The visualized paranasal sinuses and mastoid air cells are clear. Impression: No intracranial hemorrhage, mass, or acute infarct. Atrophy and chronic white matter changes, as above. Reviewed, dictated and finalized at location M. Impression: No intracranial hemorrhage, mass, or acute infarct. Atrophy and chronic white matter changes, as above.
--- NOTE | ~2024-12-20 | CT_ITS ---
CT facial bones wo con Ordering provider: Antonina Rodriguez MD History: . fall . Comparison: None. Technique: Thin slice axial CT of the facial bones was performed without contrast. Coronal and sagit leisa reformatted images were also obtained. . Automated exposure control and iterative reconstruction technique were employed. The dose-length product was 306.57 mGy-cm. FINDINGS: PARANASAL SINUSES: Bilateral maxillary sinus disease. BONES: No facial fracture including no nasal bone fracture. ORBITS AND SUPERFICIAL SOFT TISSUES: The optic globes and orbits are normal. Minimal soft tissue dens ity in the scalp in the frontal area otherwise, The superficial soft tissues are normal. VISUALIZED MASTOIDS: Well aerated. LIMITED VISUALIZED BRAIN PARENCHYMA: Normal. IMPRESSION: No facial fracture. Reviewed, dictated and finalized at location A. IMPRESSION: No facial fracture.
--- OUTSIDE RECORDS SUMMARY | 2024-12-20 19:38 | XMS_ITS | Clinical Summary ---
Author Organization [facility] Administrative Offices Address [address] [place] [phone] Care Team Providers Care Nurse Informaticist Name Role Phone Unavailable Primary Care Provider Unavailabl e Social History Tobacco Use Types Packs/Day Years Used Date Smoking Tobacco: Never Assessed Sex and Gender Information Value Date Recorded Sex Assigned at Not on file Legal Sex Male 9:30 AM CDT Gender Identity Not on file Sexual Orientation Not on file Plan of Treatment Health Maintenance Due Date Last Done Comments DTAP/TDAP/TD VACCINES (1 - Tdap) 1960 PNEUMOCOCCAL VACCINE 50+ YEARS (1 of 1 - PCV) 05/29/19 91 ZOSTER VACCINE (1 of 2) 1991 RSV VACCINE (60+ or ) (1 - 1-dose 75+ series) 2016 INFLUENZA VACCINE (#1) 2024 06/09/2017 Insurance MEDICARE PART A AND B AETNA MEDICARE SUPP AESSI
--- OUTSIDE RECORDS SUMMARY | 2024-12-20 19:38 | XMS_ITS | Clinical Summary ---
Author Organization [facility] Address [address] [place] [address] Care Team Providers Care Sales Coordinator Name Role Phone Unavailable Primary Care Provider Unavailabl e Source Comments [facility],non-owned Affiliates and Associated Physician Practices is amultiple site organization consisting of ambulatory clinics and hospital sitesin [place], [place], [place] and [place]. This disclosure is being madepursuant to the Care Everywhere program and may not contain all information available regarding this patient. Last updated 18.[facility] MePlease Allergies Active Allergy Reactions Criticality Noted Date Comments Penicillins 06/09/2017 Immunizations Immunization Administration Dates Next Due INFLUENZA VACCINE, HIGH-DOSE , QUADR. (FLUZONE HIGH-DOSE QUADRIVALENT; 65Y+), 0.7 ML (HD-IIV4) 06/09/2017 Social History Tobacco Use Types Packs/Day Years Used Date Smoking Tobacco: Never Assessed Sex and Gender Information Value Date Recorded Sex Assigned at Not on file Legal Sex Male 10:55 AM CDT Gender Identity Not on file Sexual Orientation Not on file Plan of Treatment Health Maintenance Due Date Last Done Comments MEDICARE AWV 12 MONTHS 1941 DTAP/TDAP/TD VACCINES (1 - Tdap) 1960 PNEUMOCOCCAL VACCINE 50+ (1 of 1 - PCV) 1991 ZOSTER VACCINE (1 of 2) 1991 Respiratory Syncytial Virus (RSV) Vaccine Pt: or over 60 yrs (1 - 1-dose 75+ series) 2016 COVID-19 VACCINE ( - 2023-2 5 season) 2024 DEPRESSION SCREENING 09/07/2024 INFLUENZA VACCINE (Season Ended) 2025 10/03/20 17 HEPATITIS B VACCINE Aged Out No longe r eligible based on patient's age to complete this topic HIB VACCINE Aged Out No longer eligi ble based on patient's age to complete this topic HPV VACCINE Aged Out No longer eligi ble based on patient's age to complete this topic MENINGOCOCCAL (Group B) VACC INE SHARED DECISION-MAKING Aged Out No longer eligibl e based on patient's age to complete this topic MENINGOCOCCAL GROUPS A/C/Y/W VACCINE Aged Out No longer eligible b ased on patient's age to complete this topic Insurance MEDICARE MEDICARE
--- OUTSIDE RECORDS SUMMARY | 2024-12-20 19:38 | XMS_ITS | Clinical Summary ---
Author Organization [facility] Address [address] [place] [address] Care Team Providers Care Film Archivist Name Role Phone Beck Benites MD Primary Care Provider [phone] Allergies Active Allergy Reactions Criticality Noted Date [...] Postlaminectomy syndrome of lumbar region 2016 Immunizations Immunization Administration Dates Next Due Influenza, Trivalent, IM (MDV) 06/06/2015 Influenza, Unspecified 06/20/2019 Surgical History Surgery Date Site/Laterality Comments MI ARTHRD ANT INTERBODY MIN DSC LUMBAR Lumbar [...] on file Legal Sex Male 4:01 AM HEALTH SCIENCES DEPARTMENT CHAIR Gender Identity Not on file Sexual Orientation Not on file Obstetrics History Last Filed Vital Signs Vital Sign Reading Time Taken Comments Blood Pressure 110/60 09/26/2019 12:39 PM HEALTH SCIENCES DEPARTMENT CHAIR Pulse 88 09/26/2019 12:39 PM HEALTH SCIENCES DEPARTMENT CHAIR Temperature 36 C (96.8 F) 09/26/2019 12:39 PM HEALTH SCIENCES DEPARTMENT CHAIR Respiratory Rate 16 09/26/2019 12:39 PM HEALTH SCIENCES DEPARTMENT CHAIR Oxygen Saturation 97% 09/26/2019 12:39 PM HEALTH SCIENCES DEPARTMENT CHAIR Inhaled Oxygen Concentration - - Weight 92 kg (202 lb 13.2 oz) 09/19/2019 7:16 AM HEALTH SCIENCES DEPARTMENT CHAIR Height 175.3 cm (5' 9 ) 09/19/2019 7:16 AM HEALTH SCIENCES DEPARTMENT CHAIR Body Mass Index 29.95 09/19/2019 7:16 AM HEALTH SCIENCES DEPARTMENT CHAIR Plan of Treatment Health Maintenance Due Date Last Done Comments Depression Screening 1941 Fall Risk Assessment 1941 DTaP/Tdap/Td Vaccine (1 - Tdap) 1952 Hepatitis B Screening 1959 Pneumococcal vaccine 65+ (1 of 1 - PCV) 1991 Zoster Vaccine (1 of 2) 1991 Well Visit 65+ 2006 Influenza Vaccine (#1) 2024 9, 07/08/2017, 06/09/2017, Additional history exists Medical Devices Implanted Type Area Lieutenant Firefighter Device Identifier Shelf Expiration Date Model / Serial / Lot [employer] 700-025 I Factor Allograft Putty Syringe Graft 2.5cc Bone - [id number] Implanted:Qty: 1 on 09/19/2019 by Don Estrella MD at [facility] N/A: Back [employer] Inc 05/07/2022 700-025 / / [id number] Synthes 08.803.050 Taylor Revolve [id number] Radiopaque Self Distract Bevel Edge - [id number] Implanted:Qty: 1 on 09/19/2019 by Don Estrella MD at [facility] N/A: Back Synthes I [id number] / / [employer] Pa-65-45 Streamline 6.5mm 45mm Polyaxial Spine Pedicle Screw Bone - [id number] Implanted:Qty: 2 on 09/19/2019 by Don Estrella MD at [facility] N/A: Back [employer] PA-65 -4 5 / / Screw Set Streamline Tl Screw System - [id number] Implanted:Qty: 4 on 09/19/2019 by Don Estrella MD at [facility] N/A: Back [employer] -SETSC RE W / / Qsrs Pre-Bent 5.5mm X 55mm - [id number] Implanted:Qty: 2 on 09/19/2019 by Don Estrella MD at [facility] N/A: Back [employer] 10-55-MI -5 5 / / Insurance MEDICARE AET SENIOR SUPPLEMENT [address] Member Subscriber Plan / Payer (Ef fective 2019-Present) Name:Kinjalnabeelfaisal Wilmer Mariusz Relation to Subscriber:Not on file Subscriber ID:Not on file Payer ID:[id number] (NAIC) Group ID:[id number] Type:BC OTHER Address: [address] [place] [id number] [place] [address] MEDICARE [facility] MEDICARE [facility] [address] [place] [address] [place] [address] MEDICARE AET[employer] SENIOR SUPPLEMENT Advance Directives For more information, please contact: [phone] Documents on File Type Date Recorded Patient Framing Specialist Expl anation ADVANCE DIRECTIVE 10/12/2019 5:16 PM ADVANCE DIRECTIVE 09/19/2019 7:20 AM ADVANCE DIRECTIVE 09/19/2019 6:24 AM * Full Code (Latest Code Status on File) Date Activated Date Inactivated Comments 09/19/2019 1:46 PM 09/20/2019 5:51 PM Care Teams Film Archivist Relationship Specialty Start Date End Date Beck Benites MD [address] [address] PCP - General 11/06/16
--- OUTSIDE RECORDS SUMMARY | 2024-12-20 19:38 | XMS_ITS | Continuity of Care Document ---
Author Organization [facility] Address [address] [place] [address] Phone Care Team Providers Care Core Drill Operator Name Role Phone Palm OD, Roel Unavailable Unavailable Procedures Procedure Date Eye Exam & Treatment Refraction Eye Exam & Treatment Eye Exam Established Pt Eye Exam & Treatment Refraction Eye Exam & Treatment Refraction Advance Directives Directive Yes / No Effective Date File Name No Information Encounters Encounter Description Practice Location Reason(s) For Visit Diagnoses Date Provider Providers Copied on Encounter [facility], [id number] [place] [address] [address], [place], [place], [id number], tel:[phone] SEC [facility] No Information 1-201 0 Palm OD Roel. [address] [facility] [place] , [address], [place], [place], [facility], . tel:[phone] [facility], [address] [place] [address] [address], [place], [place], [id number], [place] tel:[phone] SEC [facility] No Information 1-200 9 Shaw Megha. [address] [facility] [address], [place], [place], [facility], [place]. tel:[phone] [facility], [address], [place], [place], [id number], tel:[phone] SEC [facility] No Information 4200 9 Ginny Long. [address] [facility] [address], [place], [address], [place]. tel:[phone] [facility], [address], [place], [place], [id number], tel:[phone] [facility] No Information 0200 8 Valeria Cleveland. [address] [facility] , [address], [place], [place], [facility], [place]. tel:[phone] [facility], [address], [place], [place], [id number], [place] tel:[phone] [facility] No Information 5200 7 Valeria Cleveland. [address] [facility] , [address], [place], [place], [facility], [place]. tel:[phone] Family History Family Member Type Diagnosis Age At Onset No Information Payers Payer name Insurance type Covered libertarian ID Capricenabila liuchai(s) [facility] Commercial CI [id number] Social History Type Description Quantity Date Captured [...]
--- OUTSIDE RECORDS SUMMARY | 2024-12-20 19:39 | XMS_ITS | Referral Summary ---
Author Organization [facility] Address [address] [place] [address] Care Team Providers Care Hire Car Driver Name Role Phone Beck Benites MD Primary Care Provider [phone] Allergies Active Allergy Reactions Criticality Noted Date [...] on file Legal Sex Male 4:01 AM INDUSTRIAL ENGINEERING DIRECTOR Gender Identity Not on file Sexual Orientation Not on file Last Filed Vital Signs Vital Sign Reading Time Taken Comments Blood Pressure 110/60 09/26/2019 12:39 PM INDUSTRIAL ENGINEERING DIRECTOR Pulse 88 09/26/2019 12:39 PM INDUSTRIAL ENGINEERING DIRECTOR Temperature 36 C (96.8 F) 09/26/2019 12:39 PM INDUSTRIAL ENGINEERING DIRECTOR Respiratory Rate 16 09/26/2019 12:39 PM INDUSTRIAL ENGINEERING DIRECTOR Oxygen Saturation 97% 09/26/2019 12:39 PM INDUSTRIAL ENGINEERING DIRECTOR Inhaled Oxygen Concentration - - Weight 92 kg (202 lb 13.2 oz) 09/19/2019 7:16 AM INDUSTRIAL ENGINEERING DIRECTOR Height 175.3 cm (5' 9 ) 09/19/2019 7:16 AM INDUSTRIAL ENGINEERING DIRECTOR Body Mass Index 29.95 09/19/2019 7:16 AM INDUSTRIAL ENGINEERING DIRECTOR Plan of Treatment Not on file Medical Devices Implanted Type Area De Alcholizer Device Identifier Shelf Expiration Date Model / Serial / Lot [employer] 700-025 I Factor Allograft Putty Syringe Graft 2.5cc Bone - [id number] Implanted:Qty: 1 on 09/19/2019 by Don Estrella MD at [facility] N/A: Back Cer[employer] Inc 05/07/2022 700-025 / / [id number] Synthes 08.803.050 [place] Revolve [id number] Radiopaque Self Distract Bevel Edge - [id number] Implanted:Qty: 1 on 09/19/2019 by Don Estrella MD at [facility] N/A: Back Synthes I 08.803.050 / / [employer] -65-45 Streamline 6.5mm 45mm Polyaxial Spine Pedicle Screw Bone - [id number] Implanted:Qty: 2 on 09/19/2019 by Don Estrella MD at [facility] N/A: Back [employer] -65 -4 5 / / Screw Set Streamline Tl Screw System - [id number] Implanted:Qty: 4 on 09/19/2019 by Don Estrella MD at [facility] N/A: Back [employer] -SETSC RE W / / Qsrs Pre-Bent 5.5mm X 55mm - [id number] Implanted:Qty: 2 on 09/19/2019 by Don Estrella MD at [facility] N/A: Back [employer] 10-55-[place] -5 5 / / [facility] [address] [place] [id number] [facility] MEDICARE AETNA SENIOR SUPPLEMENT Advance Directives For more information, please contact: [phone] Documents on File Type Date Recorded Patient Contact Lens Inspector Expl anation ADVANCE DIRECTIVE 10/12/2019 5:16 PM ADVANCE DIRECTIVE 09/19/2019 7:20 AM ADVANCE DIRECTIVE 09/19/2019 6:24 AM * Full Code (Latest Code Status on File) Date Activated Date Inactivated Comments 09/19/2019 1:46 PM 09/20/2019 5:51 PM Care Teams Hire Car Driver Relationship Specialty Start Date End Date Beck Benites MD [address] [address] PCP - General 11/06/16
[2024-12-20 20:06] VITALS: BP 126/58; PULSE 78; RESP 16; TEMP 36.6; O2SAT 97
--- OUTSIDE RECORDS SUMMARY | 2024-12-20 20:30 | XMS_ITS | Clinical Summary ---
Author Organization [facility] Address [address] [place] [place] [address] Care Team Providers Care Blog Writer Name Role Phone Beck Benites MD Primary Care Provider [phone] Allergies Active Allergy Reactions Criticality Noted Date [...] 06/20/2019 Surgical History Surgery Date Site/Laterality Comments [place] ARTHRD ANT INTERBODY MIN DSC LUMBAR Lumbar [...] on file Legal Sex Male 4:01 AM RESIDENTIAL CASE MANAGER Gender Identity Not on file Sexual Orientation Not on file Obstetrics History Last Filed Vital Signs Vital Sign Reading Time Taken Comments Blood Pressure 110/60 09/26/2019 12:39 PM RESIDENTIAL CASE MANAGER Pulse 88 09/26/2019 12:39 PM RESIDENTIAL CASE MANAGER Temperature 36 C (96.8 F) 09/26/2019 12:39 PM RESIDENTIAL CASE MANAGER Respiratory Rate 16 09/26/2019 12:39 PM RESIDENTIAL CASE MANAGER Oxygen Saturation 97% 09/26/2019 12:39 PM RESIDENTIAL CASE MANAGER Inhaled Oxygen Concentration - - Weight 92 kg (202 lb 13.2 oz) 09/19/2019 7:16 AM RESIDENTIAL CASE MANAGER Height 175.3 cm (5' 9 ) 09/19/2019 7:16 AM RESIDENTIAL CASE MANAGER Body Mass Index 29.95 09/19/2019 7:16 AM RESIDENTIAL CASE MANAGER Plan of Treatment Health Maintenance Due Date Last Done Comments Depression Screening 1941 Fall Risk Assessment 1941 DTaP/Tdap/Td Vaccine (1 - Tdap) 1952 Hepatitis B Screening 1959 Pneumococcal vaccine 65+ (1 of 1 - PCV) 1991 Zoster Vaccine (1 of 2) 1991 Well Visit 65+ 2006 Influenza Vaccine (#1) 2024 9, 07/08/2017, 06/09/2017, Additional history exists Medical Devices Implanted Type Area Independent Freight Agent Device Identifier Shelf Expiration Date Model / Serial / Lot [employer] 700-025 I Factor Allograft Putty Syringe Graft 2.5cc Bone - [id number] Implanted:Qty: 1 on 09/19/2019 by Don Estrella MD at [facility] N/A: Back [employer] Inc 05/07/2022 700-025 / / [id number] Synthes 08.803.050 [place] Revolve [id number] Radiopaque Self Distract Bevel Edge - [id number] Implanted:Qty: 1 on 09/19/2019 by Don Estrella MD at [facility] N/A: Back Synthes I 08.803.050 / / Rti [employer] Inc Pa-65-45 Streamline 6.5mm 45mm Polyaxial Spine Pedicle Screw Bone - [id number] Implanted:Qty: 2 on 09/19/2019 by Don Estrella MD at [facility] N/A: Back [employer] PA-65 -4 5 / / Screw Set Streamline Tl Screw System - [id number] Implanted:Qty: 4 on 09/19/2019 by Don Estrella MD at [facility] N/A: Back [employer] -SETSC RE W / / Qsrs Pre-Bent 5.5mm X 55mm - [id number] Implanted:Qty: 2 on 09/19/2019 by Don Estrella MD at [facility] N/A: Back [employer] 10-55-[place] -5 5 / / Insurance MEDICARE AET SENIOR SUPPLEMENT [address] MEDICARE [facility] MEDICARE [facility] [address] [place] [address] [place] [address] MEDICARE AETNA SENIOR SUPPLEMENT Advance Directives For more information, please contact: [phone] Documents on File Type Date Recorded Patient Machine Package Sealer Expl anation ADVANCE DIRECTIVE 10/12/2019 5:16 PM ADVANCE DIRECTIVE 09/19/2019 7:20 AM ADVANCE DIRECTIVE 09/19/2019 6:24 AM * Full Code (Latest Code Status on File) Date Activated Date Inactivated Comments 09/19/2019 1:46 PM 09/20/2019 5:51 PM Care Teams Blog Writer Relationship Specialty Start Date End Date Beck Benites MD [address] [address] PCP - General 11/06/16
--- OUTSIDE RECORDS SUMMARY | 2024-12-20 20:30 | XMS_ITS | Referral Summary ---
Author Organization [facility] Address [address] [place] [address] Care Team Providers Care Builder'S Labourer Name Role Phone Beck Benites MD Primary Care Provider [phone] Allergies Active Allergy Reactions Criticality Noted Date [...] on file Legal Sex Male 4:01 AM OCC MED PHYSICIAN Gender Identity Not on file Sexual Orientation Not on file Last Filed Vital Signs Vital Sign Reading Time Taken Comments Blood Pressure 110/60 09/26/2019 12:39 PM OCC MED PHYSICIAN Pulse 88 09/26/2019 12:39 PM OCC MED PHYSICIAN Temperature 36 C (96.8 F) 09/26/2019 12:39 PM OCC MED PHYSICIAN Respiratory Rate 16 09/26/2019 12:39 PM OCC MED PHYSICIAN Oxygen Saturation 97% 09/26/2019 12:39 PM OCC MED PHYSICIAN Inhaled Oxygen Concentration - - Weight 92 kg (202 lb 13.2 oz) 09/19/2019 7:16 AM OCC MED PHYSICIAN Height 175.3 cm (5' 9 ) 09/19/2019 7:16 AM OCC MED PHYSICIAN Body Mass Index 29.95 09/19/2019 7:16 AM OCC MED PHYSICIAN Plan of Treatment Not on file Medical Devices Implanted Type Area Metal Annealer Device Identifier Shelf Expiration Date Model / Serial / Lot [employer] Inc 700-025 I Factor Allograft Putty Syringe Graft 2.5cc Bone - [id number] Implanted:Qty: 1 on 09/19/2019 by Don Estrella MD at [facility] N/A: Back [employer] Inc 05/07/2022 700-025 / / [id number] Synthes 08.803.050 [place] Revolve [id number] Radiopaque Self Distract Bevel Edge - [id number] Implanted:Qty: 1 on 09/19/2019 by Don Estrella MD at [facility] N/A: Back Synthes I 08.803.050 / / [employer] -65-45 Streamline 6.5mm 45mm Polyaxial Spine Pedicle Screw Bone - [id number] Implanted:Qty: 2 on 09/19/2019 by Don Estrella MD at [facility] N/A: Back [employer] -65 -4 5 / / Screw Set Streamline Tl Screw System - [id number] Implanted:Qty: 4 on 09/19/2019 by Don Estrella MD at [facility] N/A: Back [employer] -SETSC RE W / / Qsrs Pre-Bent 5.5mm X 55mm - [id number] Implanted:Qty: 2 on 09/19/2019 by Don Estrella MD at [facility] N/A: Back [employer] Inc 10-55-[place] -5 5 / / [facility] [address] [address] MEDICARE [facility] MEDICARE [facility] MEDICARE AETNA SENIOR SUPPLEMENT Advance Directives For more information, please contact: [phone] Documents on File Type Date Recorded Patient Special Education Professional Expl anation ADVANCE DIRECTIVE 10/12/2019 5:16 PM ADVANCE DIRECTIVE 09/19/2019 7:20 AM ADVANCE DIRECTIVE 09/19/2019 6:24 AM * Full Code (Latest Code Status on File) Date Activated Date Inactivated Comments 09/19/2019 1:46 PM 09/20/2019 5:51 PM Care Teams Builder'S Labourer Relationship Specialty Start Date End Date Beck Benites MD [address] [address] PCP - General 11/06/16
--- OUTSIDE RECORDS SUMMARY | 2024-12-20 20:30 | XMS_ITS | Continuity of Care Document ---
Author Organization [facility] Address [address] [place] [address] Phone Care Team Providers Care Slip Seat Coverer Name Role Phone Palm OD, Roel Unavailable Unavailable Procedures Procedure Date Eye Exam & Treatment Refraction Eye Exam & Treatment Eye Exam Established Pt Eye Exam & Treatment Refraction Eye Exam & Treatment Refraction Advance Directives Directive Yes / No Effective Date File Name No Information Encounters Encounter Description Practice Location Reason(s) For Visit Diagnoses Date Provider Providers Copied on Encounter [facility], [address] [place] [address] [address], [place], [place], [id number], tel:[phone] SEC [facility] No Information 1-201 0 Palm OD Roel. [address] [facility] [place] , [address], [place], [place], [facility], . tel:[phone] [facility], [address] [place] [address] [address], [place], [place], [id number], [place] tel:[phone] SEC [facility] No Information 1-200 9 [address] Megha. [address] [facility] [address], [place], [place], [facility], [place]. tel:[phone] [facility], [address], [place], [place], [address], tel:[phone] SEC [facility] No Information 4[address] Long[address] [facility] [address], [place], [address], [place]. tel:[phone] [facility], [address], [place], [place], [address], tel:[phone] [facility] No Information 0200 8 Valeria Cleveland. [address] [facility] , [address], [place], [facility], [place]. tel:[phone] [facility], [address], [place], [place], [address], [place] tel:[phone] [facility] No Information 5200 7 Valeria Cleveland. [address] [facility] , [address], [place], [place], [facility], [place]. tel:[phone] Family History Family Member Type Diagnosis Age At Onset No Information Payers Payer name Insurance type Covered alliance party ID Capricenabila liuchai(s) [facility] Commercial CI [id number] Social History Type Description Quantity Date Captured [...]
--- OUTSIDE RECORDS SUMMARY | 2024-12-20 20:30 | XMS_ITS | Clinical Summary ---
Author Organization [facility] Address [address] [place] [address] Care Team Providers Care Signal Tower Director Name Role Phone Unavailable Primary Care Provider [...]
--- OUTSIDE RECORDS SUMMARY | 2024-12-20 20:30 | XMS_ITS | Clinical Summary ---
Author Organization [facility] Address [address] [place] [address] Care Team Providers Care Mail Distributor Name Role Phone Unavailable Primary Care Provider Unavailabl e Source Comments [facility],non-owned Affiliates and Associated Physician Practices is amultiple site organization consisting of ambulatory clinics and hospital sitesin [place], [place], [place]. This disclosure is being madepursuant to the Care Everywhere program and may not contain all information available regarding this patient. Last updated 18.[facility] [place] Allergies Active Allergy Reactions Criticality Noted Date [...]
--- NOTE | 2024-12-20 21:16 | ED_ITS ---
HPI - Fall General Chief Complaint: Fall Stated Complaint: Fall/tripped-multiple injury Time Seen by Provider: 12/20/24 20:08 History of Present Illness HPI Narrative: Patient is an 84-year-old male who presents emergency department this evening status post a ground level fall. Patient states that him and his were out in the yd doing some yd work and he tripped over a hose. Admits that the fall was purely mechanical, denies any near syncopal/syncopal episodes. Patient has bilateral abrasions to his knees, skin tear to his right forearm and skin tear to his left orbital region. Unknown last tetanus. Patient denies any loss of consciousness and states that he was ambulatory after the fall and has been able to walk. He is moving all 4 extremities without any pain. No additional symptoms or concerns at this time. Patient does not take any blood thinners only a baby aspirin. Related Data Home Medications ?Medication ?Instructions ?Recorded ?Confirmed ?Last Taken ?Type cyanocobalamin (vitamin B-12) 1,000 mcg PO DAILY 07/14/19 09/08/24 Unknown History 1,000 mcg tablet,extended release (Vitamin B-12 ER) empagliflozin 25 mg tablet 25 mg PO DAILY 07/14/19 09/08/24 Unknown History (Jardiance) metformin 500 mg tablet,extended 1,000 mg PO BID 07/14/19 09/08/24 Unknown History release 24 hr omeprazole 20 mg capsule,delayed 20 mg PO DAILY 07/14/19 09/08/24 Unknown Histo ry release simvastatin 40 mg tablet 40 mg PO DAILY 07/14/19 09/08/24 Unknown History cholecalciferol (vitamin D3) 50 4,000 unit PO DAILY 06/04/20 09/08/24 Unknown History mcg (2,000 unit) tablet gabapentin 100 mg capsule 100 mg PO TID 06/18/22 09/08/24 Unknown History aspirin 81 mg tablet,delayed 81 mg PO DAILY 07/03/22 09/08/24 Unknown History release (Adult Aspirin Regimen) coffee extract 100 mg-phosphatidyl cap PO 07/03/22 09/08/24 Unknown History serine 100 mg capsule (Neuriva Original) vit C 250 mg-vit E 90 mg-zinc 40 1 tablet PO BID 07/03/22 09/08/24 Unknown History mg-copper 1 ga-prrocs-kjgvgv capsule (PreserVision AREDS-2) duloxetine 30 mg capsule,delayed 30 mg PO .COMPLEX 01/05/24 09/08/24 Unknown History release POTASSIUM 595 mg BYMOUTH DAILY 09/08/24 09/08/24 Unknown History pumpkin seed extract-soy germ 300 cap PO 09/08/24 09/08/24 Unknown History mg capsule (Azo Bladder Control) ferrous sulfate 325 mg (65 mg 325 mg PO . every other day 12/20/24 12/20/24 Unknown History iron) tablet (iron) lisinopril 40 mg tablet 20 mg PO DAILY 12/20/24 12/20/24 Unknown History Allergies Allergy/AdvReac Type Severity Reaction Status Date / Time Penicillins Allergy Unknown Edema Verified 12/20/24 19:37 Review of Systems Review of Systems: All systems are reviewed and are negative unless stated otherwise in the HPI. [facility] Past Medical History Medical History Weight loss, abnormal Ataxia REM behavioral disorder Dementia Short-term memory loss MRI of the brain and brainstem with and without contrast on 08/21/2024 reveals moderate chronic small-vessel disease with atrophy. 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 BMI 28.0-28.9,adult Urinary frequency Microalbuminuria due to type 2 diabetes mellitus microalbumin ratio of 37 on 12/10/2021. 21 on 12/10/2022. 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 Iron 94 with 33% saturation and ferritin 87 on 12/10/2022. Iron 87 with 29% saturation and ferritin 22 on 12/24/2023. Chronic post-traumatic stress disorder (PTSD) Restless legs syndrome Ferritin 87 on 12/10/2021. ferritin 87 on 12/10/2022. Obstructive sleep apnea on CPAP Failure on CPAP Gastroesophageal reflux disease Surgical History Surgical History H/O lumbosacral spine surgery Family History Family History Mother Patient's mother is , Onset Age: 81 Father Patient's father is , Onset Age: 69 Social History Social History Smoking status: Never smoker Alcohol intake: current Drinks per week: 1 Substance use: never Substance use type: does not use Lack of Transportation: No Lack of Food: Never True Current Housing: I Have Housing Concerned About Future Housing: No Difficulty Paying Gas/Electric Bills: No Difficulty Paying for Meds: No Currently Unemployed: No Education: Associate Degree Difficulty w/ Childcare or Family Care: No Exam Narrative: General: Alert, awake, afebrile, in no acute distress. HEENT: PERRL, no rhinorrhea, no post nasal drip, oropharynx clear, small skin avulsion/laceration to the corner of the left eye, ecchymosis noted to left eyelid, intact extraocular movements of the left eye, no evidence of muscle entrapment. Neck: Trachea midline, no JVD, no lymphadenopathy, no midline tenderness to palpation over the cervical spine. Cardiovascular: Regular rate and rhythm, no murmurs, rubs or gallops, no peripheral edema. Respiratory: Clear to auscultation bilaterally, no tachypnea, no wheezing, no rhonchi, no rubs, no respiratory distress. Abdomen: Soft, nontender, nondistended, no rebound, no guarding, no peritoneal signs. Musculoskeletal: Abrasions to the bilateral knees, right forearm skin tear, intact full range of motion at the bilateral upper and lower extremity joints. Skin: No rashes or petechia, no signs of infection. Psychiatric: Alert and oriented, normal behavior and judgment for situation. Neurological: Alert and oriented to person, place, and time. Follows all commands. No focal deficits, speech is clear and fluent. Course Vital Signs Vital signs: Vital Signs Temperature 97.8 F 12/20/24 20:06 Pulse Rate 78 12/20/24 20:06 Respiratory Rate 16 12/20/24 20:06 Blood Pressure 126/58 L 12/20/24 20:06 Pulse Oximetry 97 12/20/24 20:06 Oxygen Delivery Room Air 12/20/24 20:06 Temperature 97.8 F 12/20/24 20:06 Pulse Rate 78 12/20/24 20:06 Respiratory Rate 16 12/20/24 20:06 Blood Pressure 126/58 L 12/20/24 20:06 Pulse Oximetry 97 12/20/24 20:06 Oxygen Delivery Room Air 12/20/24 20:06 Procedures Laceration Laceration 1: Date: 12/20/24 Time: 22:40 Site: face Side (If applicable): left Size (cm): 1 Description: irregular Depth: simple, single layer Local Anesthetic: lidocaine 1% Amount of anesthesia used (mL): 1 Pre-repair: wound explored, irrigated and deep structures intact ====== Skin Level ====== Skin layer closed with: nylon Size (cm): 5-0 Number of sutures: 1 Technique: simple, interrupted ====== Subcutaneous Layer ====== ====== Muscle Layer ====== ====== Tendon Layer ====== MDM - Fall MDM Narrative Medical decision making narrative: The patient was evaluated by myself in the emergency department. History is obtained from patient who is an independent historian and physical exam was performed. External medical records were reviewed at this time. Tetanus was updated today. Imaging studies obtained included CT brain and facial bones without IV contrast which was independently interpreted by me revealing no acute process, which is pending final radiology interpretation. Differential diagnosis considerations include intracranial hemorrhage, facial bones fracture, head injury, lacerations, abrasions. Comorbidities impacting this visit include none. I have evaluated and discussed social determinants of health with the patient that could potentially impact subsequent diagnosis and treatment plans. On repeat assessment of the patient, reevaluation revealed that the patient is doing well and is in no acute distress. Patient symptoms have improved since he arrived to our emergency department. Repeat vital signs were all reviewed and noted to be stable. Differential diagnosis and treatment plan were discussed with the patient at bedside. Patient agrees with discussion and after shared medical decision making agrees with discharge. All questions were answered to the patient's satisfaction. Patient will follow up with his PCP in 3-5 days. Patient was provided with strict return precautions and instructed to return to the emergency department if any new or worsening symptoms develop. The patient was discharged in stable condition. Discharge Plan Discharge Clinical Impression: Fall from ground level, Head injury, Abrasion of skin, Laceration Patient Disposition: Home Condition: Improved Instructions: Antibiotic Form, Laceration (ED), Head Injury (ED), Skin Avulsion (ED), Fall Prevention (ED) Additional Instructions: Please follow-up with your family doctor within the next 3-5 days. Return emergency department if any new worsening symptoms develop. The suture that was placed your left eyelid region will need to be removed by medical professional within the next 5-7 days. Patient Language: Bahraini Prescriptions: No Action gabapentin 100 mg capsule 100 mg PO TID Azo Bladder Control 300 mg capsule PO POTASSIUM capsule 595 mg BYMOUTH DAILY donepezil 10 mg tablet 10 mg PO DAILY Qty: 90 2RF Rx Instructions: should be taken the morning memantine [Namenda Titration Gabriel] 5-10 mg tablets,dose pack See Rx Instructions PO PER PKG DIR Qty: 49 0RF Rx Instructions: PO PER PKG DIR memantine [Namenda] 10 mg tablet 10 mg PO BID Qty: 180 3RF ferrous sulfate [iron] 325 mg (65 mg iron) tablet 325 mg PO . every other day lisinopril 40 mg tablet 20 mg PO DAILY cholecalciferol (vitamin D3) 50 mcg (2,000 unit) tablet 4,000 unit PO DAILY duloxetine 30 mg capsule,delayed release(DR/EC) 30 mg PO .COMPLEX Rx Instructions: 30 mg orally 2 capsules in the morning and 1 in the evening; Jardiance 25 mg tablet 25 mg PO DAILY metformin 500 mg tablet extended release 24 hr 1,000 mg PO BID simvastatin 40 mg tablet 40 mg PO DAILY omeprazole 20 mg capsule,delayed release(DR/EC) 20 mg PO DAILY cyanocobalamin (vitamin B-12) [Vitamin B-12] 1,000 mcg tablet extended release 1,000 mcg PO DAILY aspirin [Adult Aspirin Regimen] 81 mg tablet,delayed release (DR/EC) 81 mg PO DAILY Neuriva Original 100-100 mg capsule PO PreserVision AREDS-2 250-90-40-1 mg capsule 1 tablet PO BID Follow-up/Referrals: Beck Benites MD [Primary Care Provider] - 3 Days Time of Disposition: 22:31
[2024-12-20] MEDS: TETANUS,DIPHTHERIA,AC PERTUSSIS ADULT (0.5 ML) BOOSTRIX IM (22:55)
[2024-12-20 22:59] VITALS: BP 111/49
== END 2024-12-20 23:01 | disposition home or self-care (01) ==
PROVIDERS: Emergency Provider Emergency Medicine; PCP Family Medicine
DX: S51.811A Laceration without foreign body of right forearm, initial encounter (principal); S01.111A Laceration without foreign body of right eyelid and periocular area, initial encounter; S80.212A Abrasion, left knee, initial encounter; S80.211A Abrasion, right knee, initial encounter; F03.90 Unspecified dementia, unspecified severity, without behavioral disturbance, psychotic disturbance, mood disturbance, and anxiety; G20.A1 Parkinson's disease without dyskinesia, without mention of fluctuations; F02.80 Dementia in other diseases classified elsewhere, unspecified severity, without behavioral disturbance, psychotic disturbance, mood disturbance, and anxiety; D64.9 Anemia, unspecified; G25.81 Restless legs syndrome; G47.30 Sleep apnea, unspecified; K21.9 Gastro-esophageal reflux disease without esophagitis; F43.10 Post-traumatic stress disorder, unspecified; W01.0XXA Fall on same level from slipping, tripping and stumbling without subsequent striking against object, initial encounter; Z23 Encounter for immunization
CPT/HCPCS: 12011; 70450; 70486; 90471; 90715; 99284

== ENCOUNTER 2025-01-31 10:56 | Outpatient (CLI) | payer MEDICARE, SELFPAY ==
--- OUTSIDE RECORDS SUMMARY | 2025-01-31 10:59 | XMS_ITS | Clinical Summary ---
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 Gender Identity Not on file Sexual Orientation Not on file Obstetrics History Last Filed Vital Signs Vital Sign Reading Time Taken Comments Blood Pressure 110/60 09/26/2019 12:39 PM PRECISION DANCER Pulse 88 09/26/2019 12:39 PM PRECISION DANCER Temperature 36 C (96.8 F) 09/26/2019 12:39 PM PRECISION DANCER Respiratory Rate 16 09/26/2019 12:39 PM PRECISION DANCER Oxygen Saturation 97% 09/26/2019 12:39 PM PRECISION DANCER Inhaled Oxygen Concentration - - Weight 92 kg (202 lb 13.2 oz) 09/19/2019 7:16 AM PRECISION DANCER Height 175.3 cm (5' 9) 09/19/2019 7:16 AM PRECISION DANCER Body Mass Index 29.95 09/19/2019 7:16 AM PRECISION DANCER Plan of Treatment Health Maintenance Due Date Last Done Comments Depression Screening 1941 Fall Risk Assessment 1941 DTaP/Tdap/Td Vaccine (1 - Tdap) 1952 Hepatitis B Screening 1959 Pneumococcal vaccine 65+ (1 of 1 - PCV) 1991 Zoster Vaccine (1 of 2) 1991 Well Visit 65+ 2006 Influenza Vaccine (Season Ended) 2025 06/20/2019, 07/08/2017, 06/09/2017, Additional history exists Medical Devices Implanted Type Area Judo Instructor Device Identifier Shelf Expiration Date Model / Serial / Lot [employer] Mobile 700-025 I Factor Allograft Putty Syringe Graft 2.5cc Bone - [id number] Implanted:Qty: 1 on 09/19/2019 by Don Estrella MD at [facility] N/A: Back [employer] Inc 05/07/2022 700-025 / / [id number] Synthes 08.803.050 [place] Revolve [id number] Radiopaque Self Distract Bevel Edge - [id number] Implanted:Qty: 1 on 09/19/2019 by Don Estrella MD at [facility] N/A: Back Synthes I 08.803.050 / / [employer] Pa-65-45 Streamline 6.5mm 45mm Polyaxial Spine Pedicle Screw Bone - [id number] Implanted:Qty: 2 on 09/19/2019 by Don Estrella MD at [facility] N/A: Back [employer] PA-65 -4 5 / / Screw Set Streamline Tl Screw System - [id number] Implanted:Qty: 4 on 09/19/2019 by Don Estrella MD at [facility] N/A: Back [employer] 01-SETSC RE W / / Qsrs Pre-Bent 5.5mm X 55mm - [id number] Implanted:Qty: 2 on 09/19/2019 by Don Estrella MD at [facility] N/A: Back [employer] 10-55-[place] -5 5 / / Insurance MEDICARE AET SENIOR SUPPLEMENT [employer] [facility] MEDICARE [facility] MEDICARE [facility] [address] [place] [id number] [place] [address] MEDICARE AETNA SENIOR SUPPLEMENT Advance Directives For more information, please contact: [phone] Documents on File Type Date Recorded Patient Practice Management Consultant Expl anation ADVANCE DIRECTIVE 10/12/2019 5:16 PM ADVANCE DIRECTIVE 09/19/2019 7:20 AM ADVANCE DIRECTIVE 09/19/2019 6:24 AM * Full Code (Latest Code Status on File) Date Activated Date Inactivated Comments 09/19/2019 1:46 PM 09/20/2019 5:51 PM Care Teams Clin Asst Relationship Specialty Start Date End Date Beck Benites MD [address] [employer] [address] PCP - General 11/06/16
--- OUTSIDE RECORDS SUMMARY | 2025-01-31 10:59 | XMS_ITS | Clinical Summary ---
Author Organization [facility] Address [address] [place] [address] Care Team Providers Care Supervisor Locomotive Name Role Phone Unavailable Primary Care Provider Unavailabl e Source Comments [facility],non-owned Affiliates and Associated Physician Practices is amultiple site organization consisting of ambulatory clinics and hospital sitesin [place], [place], [place] and [place]. This disclosure is being madepursuant to the Care Everywhere program and may not contain all information available regarding this patient. Last updated [email or web address] Allergies Active Allergy Reactions Criticality Noted Date [...] SCREENING 09/07/2024 INFLUENZA VACCINE (Season Ended) 2025 06/09/20 17 HEPATITIS B VACCINE Aged Out No [...]
--- OUTSIDE RECORDS SUMMARY | 2025-01-31 10:59 | XMS_ITS | Continuity of Care Document ---
Author Organization [facility] Address [address] [place] [address] Phone Care Team Providers Care Nca Certified Concierge Name Role Phone Palm OD, Roel Unavailable Unavailable Procedures Procedure Date Eye Exam & Treatment Refraction Eye Exam & Treatment Eye Exam Established Pt Eye Exam & Treatment Refraction Eye Exam & Treatment Refraction Advance Directives Directive Yes / No Effective Date File Name No Information Encounters Encounter Description Practice Location Reason(s) For Visit Diagnoses Date Provider Providers Copied on Encounter [facility], [id number] [place] [address] [address], [place], [place], [id number], tel:[phone] [facility] No Information 1-201 0 Palm OD Roel. [address] , [address], [place], [place], [facility], . tel:[phone] [facility], [address] [place] [address] [address], [place], [place], [id number], [place] tel:[phone] [facility] No Information 1-[address], [place], [place], [facility], [place]. tel:[phone] [facility], [address], [place], [place], [id number], tel:[phone] [facility] No Information [address], [place], [address], [place]. tel:[phone] [facility], [address], [place], [place], [id number], tel:[phone] [facility] No Information [address]. [address] [facility] , [address], [place], [place], [facility], [place]. tel:[phone] [facility], [address], [place], [place], [id number], [place] tel:[phone] [facility] No Information [address]. [address] [facility] , [address], [place], [place], [facility], [place]. tel:[phone] Family History Family Member Type Diagnosis Age At Onset No Information Payers Payer name Insurance type Covered republican ID Capricenabila liuchai(s) [facility] Commercial CI [id number] Social History Type Description Quantity Date Captured [...]
--- OUTSIDE RECORDS SUMMARY | 2025-01-31 10:59 | XMS_ITS | Referral Summary ---
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 Gender Identity Not on file Sexual Orientation Not on file Last Filed Vital Signs Vital Sign Reading Time Taken Comments Blood Pressure 110/60 09/26/2019 12:39 PM WEATHERIZATION SPECIALIST Pulse 88 09/26/2019 12:39 PM WEATHERIZATION SPECIALIST Temperature 36 C (96.8 F) 09/26/2019 12:39 PM WEATHERIZATION SPECIALIST Respiratory Rate 16 09/26/2019 12:39 PM WEATHERIZATION SPECIALIST Oxygen Saturation 97% 09/26/2019 12:39 PM WEATHERIZATION SPECIALIST Inhaled Oxygen Concentration - - Weight 92 kg (202 lb 13.2 oz) 09/19/2019 7:16 AM WEATHERIZATION SPECIALIST Height 175.3 cm (5' 9) 09/19/2019 7:16 AM WEATHERIZATION SPECIALIST Body Mass Index 29.95 09/19/2019 7:16 AM WEATHERIZATION SPECIALIST Plan of Treatment Not on file Medical Devices Implanted Type Area Park Guide Device Identifier Shelf Expiration Date Model / Serial / Lot SellABandapedics Inc 700-025 I Factor Allograft Putty Syringe Graft 2.5cc Bone - [id number] Implanted:Qty: 1 on 09/19/2019 by Don Estrlela MD at [facility] N/A: Back [employer] Inc 05/07/2022 700-025 / / [id number] Synthes 08.803.050 [place] Revolve [id number] Radiopaque Self Distract Bevel Edge - [id number] Implanted:Qty: 1 on 09/19/2019 by Don Estrella MD at [facility] N/A: Back Synthes I 08.803.050 / / [employer] 65-45 Streamline 6.5mm 45mm Polyaxial Spine Pedicle Screw Bone - [id number] Implanted:Qty: 2 on 09/19/2019 by Don Estrella MD at [facility] N/A: Back [employer] -65 -4 5 / / Screw Set Streamline Tl Screw System - [id number] Implanted:Qty: 4 on 09/19/2019 by Don Estrella MD at [facility] N/A: Back [employer] SETSC RE W / / Qsrs Pre-Bent 5.5mm X 55mm - [id number] Implanted:Qty: 2 on 09/19/2019 by Don Estrella MD at [facility] N/A: Back [employer] Inc -55-[place] -5 5 / / Insurance MEDICARE AETNA SENIOR [facility] [employer] [place] [facility] MEDICARE [facility] [id number] [id number] MEDICARE [facility] MEDICARE AETNA SENIOR SUPPLEMENT Advance Directives For more information, please contact: [phone] Documents on File Type Date Recorded Patient Phlebotomist Prn Expl anation ADVANCE DIRECTIVE 10/12/2019 5:16 PM ADVANCE DIRECTIVE 09/19/2019 7:20 AM ADVANCE DIRECTIVE 09/19/2019 6:24 AM * Full Code (Latest Code Status on File) Date Activated Date Inactivated Comments 09/19/2019 1:46 PM 09/20/2019 5:51 PM Care Teams Direct Support Professional Caregiver Relationship Specialty Start Date End Date Beck Benites MD [address] [address] PCP - General 11/06/16
--- OUTSIDE RECORDS SUMMARY | 2025-01-31 10:59 | XMS_ITS | Clinical Summary ---
Author Organization [facility] Address [address] [place] [address] Care Team Providers Care Rod Cup Filler Name Role Phone Unavailable Primary Care Provider [...]
--- OUTSIDE RECORDS SUMMARY | 2025-01-31 10:59 | XMS_ITS | Data Portability ---
Author Organization [place] [facility], Main Office Address [address] [place] [address] Care Team Providers Care Gas Operator Name Role Phone TENZIN CHAND Primary Care [...] procedure, administere d by provider 2022 023 [email or web address] Not available 08:56:12 Surgeries None recorded. Imaging None recorded. Medication Orders Kenalog 10 mg/mL suspension for injection 2022 023 [id number] [facility]/Pharmacy #[id number], [address], [place], [address], 3 17:18:58 ropivacaine (PF) 5 mg/mL (0.5 %) injection solution 2022 023 [id number] 347 [facility]/Pharmacy #[id number], [address], [place], [address], 3 17:18:58 Patient TargetsNo targets recorded. Patient InstructionsNo instructions recorded. Reason for Referral None Reported. Results Created Date Observation Date Name Description Value Unit Range Abnormal Flag Note LastModifiedBy Organization Detail LastModifiedTime 03/31/20 22 XR, knee No observ ation record ed. [id number] [address], [place], [address], 11/05/2022 01:08:40 Result Notes None recorded. Problems Name Problem SNOMED Code Status Onset Date Resolution Date Notes Provider Name and Address Organization Details Recorded Time Acquired trigger finger 6773263 Active Not Available [facility] 3 17:18:58 Body mass index 30+ - obesity 649608697 Active 2018 Not Available [facility] 3 17:18:58 Osteoarthr itis 282410346 Active Not Available [facility] 3 17:18:58 Periodic limb movement disorder 726763684 Active 2019 Not Available [facility] 3 17:18:58 Pain of left knee joint 4263759353097 07 Active 2021 Not Available [facility] 3 17:18:58 Obstructiv e sleep apnea syndrome 70257019 Active 2018 Not Available [facility] 3 17:18:58 Osteoarthr itis of right knee joint 0813047573828 00 Active 2022 Not Available [facility] 3 17:18:58 Problem Notes None recorded. Procedures Surgical History Date Name Laterality Status Provider Name and Address Organization Details Recorded Time 6 Back Surgery completed Not Available [facility] 023 00:53:09 Prostatectomy completed Not Available [facility] 11/05/2022 00:53:09 Imaging Results None recorded. Procedure Notes None recorded. Medical Equipment None Reported. Allergies Allergen ID Allergen Name Allergen Category Reaction Reaction Severity Criticality Documentation Date Start Date Code Code System Note Provider Name and Address Organization Details Recorded Time 1584 Product containin g penicilli n (product) medicatio n Not available Not available Not available 11/05/2022 50278 8001 SNOMED hands and feet swell ed since 1965 Not Available [facility] 3 01:08:07 Medications Name Sig Start Date [...] n for injection in office 2022 active [facility]: 0003-049 -20 Not Available Not Available Not Available ferrous [...] Available Not Available Not Avai lable vitamin H47-nojuz acid 10/31 completed Not Available Not Available Not Available PreserVis ion AREDS 2022 active Not Available Not Available Not Avai lable lidocaine (PF) 10 mg/mL (1 %) injection solution In office injectio n administ ered by the provider 10/31 completed [facility]: 0409-427 6-17 Not Available Not Available Not Available lidocaine [...] %) injection solution in office 2022 active [facility] 38868-99 12-06 Not Available Not Available Not Available Brunilda [...] Available Not Available Not Available Fluzone High-Dose (PF) 180 mcg/0.5 mL intramusc ular syringe [...] pen injector Inject by subcutan eous route. 02/25/ 2021 active Not Available Not Available Not Avai lable Fluzone High-Dose 2019-20 (PF) 180 mcg/0.5 mL intramusc ular syringe TO BE ADMINIST ERED BY [facility] FOR IMMUNIZA TION 11/21 completed Not Available Not Available Not Available Vitals Date Recorded Body height Provider Name an d Address Organization Details Last Updated DateTime 10/31/2022 170.18 cm Not Available [facility] 3 00:56:18 Date Recorded Body height Provider Name an d Address Organization Details Last Updated DateTime 11/07/2021 167.64 cm Not Available [facility] 3 00:56:18 Date Recorded Body height Provider Name an d Address Organization Details Last Updated DateTime 11/14/2022 170.18 cm ANNETTE Mauro [facility] 11/14/2022 08:53:40 Date Recorded Body mass index (BMI) Body height Body weight Provider Name and Address Organization Details Last Updated DateTime 03/31/2022 27.7 kg/m2 170.18 cm 76913.85 g Not Available [facility] 11/05/2022 00:56:19 Date Recorded Body height Body mass index (BMI) Body weight Provider Name and Address Organization Details Last Updated DateTime 04/24/2023 167.64 cm 30 kg/m2 28542.18 g ANNETTE Mauro [facility] 04/24/2023 14:36:09 Social History Question Answer Notes LastModified by [employer] Details LastModified Time Tobacco Smoking Status Never Smoker Not Available [facility] 11/05/2022 00:51:36 What Was The Date Of Your Most Recent Tobacco Screening? 11/22/2020 [id number] Information not available 11/05/2022 Sex: Male Functional Status Question Answer Note LastModified by [employer] Details LastModified Time What is your level of alcohol consumption? Occasional [id number] Information not available 11/05/2022 Mental Status None recorded. Family History Relationship Description Onset Age of this Age Resolved Age Notes LastModified by Organization Details LastModified Time Unspecified Relation Family history of malignant neoplasm [id number] Not available 11/05/2022 00:53:12 Mother Heart disease [id number] Not available 11/05/2022 00:53:12 Father Diabetes mellitus [id number] Not available 11/05/2022 00:53:12 Medical History Condition Response BLINDNESS N KIDNEY STONES N MRSA N CARPAL TUNNEL SYNDROME Y LUNG DISEASE/DISORDER N HISTORY OF DRUG ABUSE N COPD N RADIATION / CHEMOTHERAPY N SPORTS INJURY N ANKLE PAIN N BLOOD DISEASES N SCHIZOPHRENIA N SHINGLES N BOWEL PROBLEMS N SHOULDER PAIN N DEPRESSION (INCLUDING POST ) N STROKE/TIA N ULCERS N KNEE PAIN N BENIGN PROSTATIC HYPERPLASIA N OBESITY N [...] HAVE YOU BEEN HOSPITALIZED OR SEEN IN [facility] IN THE PAST YEAR ? N BURSITIS [...] 100 mcg/0.5mL dose or 50 mcg/0.25mL dose 1 completed Not Available [facility] 11/05/2022 01:07:56 influenza, unspecified formulation 7 completed Not Available [facility] 11/05/2022 01:07:56 influenza, unspecified formulation 6 completed Not Available [facility] 11/05/2022 01:07:56 Past Encounters Encounter ID Performer Location Encounter Start Date Encounter Closed Date Diagnosis/Indication Diagnosis SNOMED-CT Code Diagnosis ICD10 Code Diagnosis Note [id number] Todd Esquivel MD [facility] [address] [address] 11/08/2020 00:00:00 11/08/2020 09:54:30 [id number] Todd Esquivel MD [facility] [address] [address] 11/22/2020 00:00:00 11/22/2020 09:24:19 [id number] MD USAMA [facility] [address] [address] 05/16/2021 00:00:00 05/16/2021 11:27:10 [id number] Todd Esquivel MD [facility] [address] [address] 10/24/2021 00:00:00 10/24/2021 09:17:17 [id number] Todd Esquivel MD [facility] [address] [address] 11/07/2021 00:00:00 11/07/2021 09:26:44 [id number] Todd Esquivel MD [facility] [address] [facility] [address] [place] [address] 03/31/2022 00:00:00 03/31/2022 17:56:39 [id number] Todd Esquivel MD [facility] [address] [place] [address] 10/31/2022 00:00:00 10/31/2022 10:28:54 [id number] MD USAMA [facility] [address] [place] [address] 11/14/2022 08:48:55 11/14/2022 09:38:46 Osteoarthritis of right knee joint 4089527360 51838 M17.11 [id number] Todd Esquivel MD [facility] [address] [place] [address] 04/24/2023 14:08:07 04/24/2023 16:02:39 Osteoarthritis of right knee joint 4690828259 20477 M17.11 Health Concerns Section Related Observation LastModified by Organization Detai ls LastModified Time None Recorded Concern Status LastModified by Organization Details LastModified Time None Recorded Advance Directives Directive None Recorded Payers Encounter Date Sequence Insurance Name Policy Number Policy Sanchez Covered Member ID Sanchez Member ID Guarantor Name 11/14/2022 1 [place] Art Vee Modrusic [id number] Wilmer Filippo Modrusic 11/14/2022 2 [place] [id number] Wilmer Vee Modrusic [id number] Wilmer Filippo Modrusic 04/24/2023 1 [place] Art E Modrusic [id number] Wilmer E Modrusic 04/24/2023 2 [place] [id number] Wilmer Filippo Modrusic [id number] Wilmer Filippo Modrusic
--- NOTE | 2025-01-31 11:30 | NEURO_ITS ---
Impression: # Known diabetic complains of gait dysfunction and falls. ? # Motor/sensory axonal somewhat asymmetrical neuropathy. ? # Needle/EMG exam abnormal with neurogenic changes noted. Nerve Conduction Studies Anti Sensory Summary Table ?Stim Site NR Peak (ms) P-T Amp (?V) Site1 Site2 Delta-P (ms) Dist (cm) Jamie (m/s) Left Sup Fibular Anti Sensory (Ant Lat Mall)??? NO RESPONSE 14 cm NR 14 cm Ant Lat Mall 16.0 Right Sup Fibular Anti Sensory (Ant Lat Mall)??? NO RESPONSE 14 cm NR 14 cm Ant Lat Mall 16.0 Left Sural Anti Sensory (Lat Mall) Calf ? 4.5 7.3 Calf Lat Mall 4.5 16.0 36 Right Sural Anti Sensory (Lat Mall) Calf ? 3.5 11.1 Calf Lat Mall 3.5 16.0 46 Motor Summary Table ?Stim Site NR Onset (ms) O-P Amp (mV) Site1 Site2 Delta-0 (ms) Dist (cm) Jamie (m/s) Left Peroneal Motor (Vastus Med) Ankle ? 5.0 2.2 Popit Ankle 11.6 40.0 34 Popit ? 16.6 1.5 Right Peroneal Motor (Vastus Med) Ankle ? 5.0 2.1 Popit Ankle 9.7 39.0 40 Popit ? 14.7 2.9 Left Tibial Motor (Abd Veronica Brev) Ankle ? 5.2 2.0 Knee Ankle 10.1 42.0 42 Knee ? 15.3 1.3 Right Tibial Motor (Abd Veronica Brev) Ankle ? 5.2 2.7 Knee Ankle 10.0 42.0 42 Knee ? 15.2 2.0 F Wave Studies ?NR F-Lat (ms) L-R F-Lat (ms) Left Peroneal (Mrkrs) (EDB) ? 62.03 0.39 Right Peroneal (Mrkrs) (EDB) ? 61.64 0.39 Left Tibial (Mrkrs) (Abd Hallucis) ? 59.44 0.21 Right Tibial (Mrkrs) (Abd Hallucis) ? 59.23 0.21 EMG ?Side Muscle Nerve Root Ins Act Fibs Amp Dur Recrt Comment Right AntTibialis Dp Br Fibular L4-5 Nml Nml Nml >12ms +1 Right Gastroc Tibial S1-2 Nml Nml Nml >12ms +1 Right Fibularis Long Sup Br Fibular L5-S1 Nml Nml Nml >12ms +1 Right Flex Dig Long Tibial L5-S2 Nml Nml Nml >12ms +1 Right Ext Dig Brev Dp Br Fibular L5, S1 Nml Nml Nml >12ms +1 Right QuadratusFem QuadFemoris L4-5, S1 Nml Nml Nml >12ms +1 Left AntTibialis Dp Br Fibular L4-5 Nml Nml Nml >12ms +1 Left Gastroc Tibial S1-2 Nml Nml Nml >12ms +1 Left Fibularis Long Sup Br Fibular L5-S1 Nml Nml Nml >12ms +1 Left Flex Dig Long Tibial L5-S2 Nml Nml Nml >12ms +1 Left Ext Dig Brev Dp Br Fibular L5, S1 Nml Nml Nml >12ms +1 Left QuadratusFem QuadFemoris L4-5, S1 Nml Nml Nml >12ms +1
== END 2025-01-31 10:57 | disposition home or self-care (01) ==
LOC: ANHNEURO 10:57
PROVIDERS: PCP Family Medicine; Visit Provider Psychiatry & Neurology Neurology
DX: G62.9 Polyneuropathy, unspecified (principal); E11.9 Type 2 diabetes mellitus without complications
CPT/HCPCS: 95886; 95910